=== PATIENT | female | born 1950 | race African-American/Black ===

== ENCOUNTER 2017-10-04 11:08 | Observation (INO) | payer OTHER ==
[2017-10-04] MEDS ORDERED: ONDANSETRON 4 MG/2 ML VIAL ONE (11:50)
[2017-10-04] MEDS ORDERED: FAMOTIDINE 20 MG/2 ML VIAL IV ONE (11:50)
[2017-10-04] MEDS ORDERED: NA CHLORIDE 0.9% 1,000 ML ONE (11:50)
[2017-10-04] MEDS ORDERED: ASPIRIN 81 MG CHEWABLE TABLET ONE (11:53)
[2017-10-04] MEDS ORDERED: NITROGLYCERIN 0.4 MG/TAB SL ONE (11:53)
[2017-10-04 11:56] LABS: Absolute Lymphocytes (CBC) 3.2 K/uL (0.7-4.9); Absolute Monocytes 0.7 K/uL (0.1-1.3); Absolute Neutrophil 5.7 K/uL (1.8-8.0); Basophils % 0.4 % (0-1.3); Eosinophils % 1.2 % (0-4.4); Hematocrit 42.4 % (36.0-45.0); Lymphocytes % 32.8 % (15.3-44.8); MCH 25.1 pg (27.0-35.0); MCV 81.4 fL (80-100); MPV 8.4 fL (7.6-11.3); Monocytes % 6.7 % (3.3-12.3); RBC Red Blood Cell Count 5.21 M/uL (3.86-4.86)
[2017-10-04 12:00] LABS: Protime INR 1.04
[2017-10-04 12:04] LABS: Bicarbonate 27 mEq/L (21-31); Glucose Level 237 mg/dL (65-120); Lipase 20 U/L (22-51); Potassium 3.6 mEq/L (3.6-5.0); Sodium Level 138 mEq/L (135-145)
--- NOTE | 2017-10-04 12:07 | RAD REPORT ---
EXAM DESCRIPTION: CT - Abdomen Pelvis Wo Contrast - 10/04/2017 11:53 am CLINICAL HISTORY: Abdominal pain. COMPARISON: 10/26/2011 TECHNIQUE: CT imaging of the abdomen and pelvis was performed without contrast. Solid organ, bowel a nd vascular assessment is limited due to lack of IV and oral contrast. All CT scans are performed using dose optimization technique as appropriate and may include automated exposure control or mA/KV adjustment according to patient size. FINDINGS: The lower lung perez are clear.Cholecystectomy clips. The liver, spleen, pancreas, adrenal glands and kidneys are within normal limits for a limited non-co ntrast examination. No bowel obstruction, free air, free fluid or abscess. Mild thickening of the colon is seen without p neumatosis coli, greatest in the transverse colon. The appendix is normal. Postsurgical changes are present at L4-5.Mild central canal narrowing seen at this level. IMPRESSION: Mild colitis is suspected, greatest in the transverse colon. No evidence of pneumatosis coli. A limited non-contrast examination was performed as detailed.
[2017-10-04 12:10] LABS: ALT/SGPT 13 IU/L (10-60); AST/SGOT 14 IU/L (10-42); Albumin 4.2 g/dL (3.2-5.5); Alkaline Phosphatase 72 IU/L (42-121); BUN Blood Urea Nitrogen 19 mg/dL (6-20); Bilirubin Direct < 0.1 mg/dL (0-0.2); Bilirubin Total 0.7 mg/dL (0.3-1.2); Magnesium 1.5 mg/dL (1.8-2.5); Protein, Total 8.1 g/dL (6.0-8.3)
--- NOTE | 2017-10-04 12:43 | RAD REPORT ---
EXAM DESCRIPTION: RAD - Chest Single View - 10/04/2017 12:03 pm CLINICAL HISTORY: Chest pain, hypertension. COMPARISON: 06/13/2017 FINDINGS: Portable technique limits examination quality. The lungs are grossly clear. The heart is upper limit of normal in size. No displaced fractures. IMPRESSION: No acute intrathoracic process suspected.
[2017-10-04 13:02] LABS: Urine Blood TRACE (NEG); Urine Glucose 2+ (NEG); Urine Protein TRACE (NEG); Urine pH 5.5 (5.0-7.0)
[2017-10-04 13:04] LABS: Urine Bacteria 20-50 /HPF (<20); Urine Culture Reflex Order REFLEXED; Urine RBC <5 /HPF (NONE SEEN)
[2017-10-04] MEDS ORDERED: Levofloxacin500mg IV 500 MG/100 ML BAG IV ONE (13:06)
[2017-10-04] MEDS ORDERED: METRONIDAZOLE 500mg IVPB 500 MG/100 ML BAG IV ONE (13:06)
--- NOTE | 2017-10-04 13:09 | EDPHYS ---
Physician Documentation [facility] Name: Soledad Watts Age: 67 yrs Sex: Female : 1950 Arrival Date: 10/04/2017 Time: 11:11 Bed 15 Private MD: Katherine Al F ED Physician Shun Millard HPI: 10/04 12:01 This 67 yrs old Black Female presents to ER via Ambulatory with complaints of Abdominal wa Pain, Diarrhea. 12:01 The patient presents to the emergency department with nausea, that is moderate, wa diarrhea, 7 times since the onset of symptoms, abdominal pain, of the left upper quadrant and left lower quadrant, described as achy, and does not radiate, c/o nausea. denies vomiting. denies fever. loose stools x 7 since onset yesterday. denies stool bloody. also states chest tightness, 6/10 with mild SOB began this AM. h/o diarrhea a yr ago. does not remember dx. Onset: The symptoms/episode began/occurred yesterday. Possible causes: unknown. The symptoms are aggravated by nothing. The symptoms are alleviated by nothing. Associated signs and symptoms: Pertinent positives: abdominal pain, diarrhea, nausea, Pertinent negatives: dysuria, fever, hematuria, vomiting. Severity of symptoms: At their worst the symptoms were moderate in the emergency department the symptoms are unchanged 6/10 chest pain. abd pain 2/10. The patient has experienced a previous episode. The patient has not recently seen a physician. Historical: - Allergies: 11:15 Codeine; la1 11:15 Talwin; la1 11:15 Toradol; la1 - Home Meds: 12:10 lisinopril 20 mg oral tab 1 tab once daily [Active]; amlodipine 5 mg oral tab 1 tab iw once daily [Active]; metoprolol tartrate 50 mg oral tab 1 tab once daily [Active]; Lyrica 150 mg Oral 1 cap 2 times per day [Active]; hydrocodone-acetaminophen 7.5-325 mg Oral tab 1 tab every 4 hours [Active]; meloxicam 15 mg oral tab 1 tab once daily [Active]; zolpidem 10 mg Oral tab 1 tab nightly [Active]; simvastatin 20 mg Oral tab 1 tab once daily [Active]; metformin 750 mg oral Tb24 once daily [Active]; - PMHx: 11:15 CHRONIC LOW BACK PAIN; Diabetes - NIDDM; Hypertension; la1 - PSHx: 12:10 Cholecystectomy; back surgery x2; Tubal ligation; cyst removed from irene. wrist; iw - Immunization history:: Adult Immunizations up to date. - Social history:: Smoking status: Patient/guardian denies using tobacco. - Family history:: not pertinent. - Hospitalizations: : No recent hospitalization is reported. ROS: 12:07 Constitutional: Negative for fever, chills, and weight loss, Eyes: Negative for injury, wa pain, redness, and discharge, ENT: Negative for injury, pain, and discharge, Neck: Negative for injury, pain, and swelling, Back: Negative for injury and pain, : Negative for injury, bleeding, discharge, and swelling, MS/Extremity: Negative for injury and deformity, Skin: Negative for injury, rash, and discoloration, Neuro: Negative for headache, weakness, numbness, tingling, and seizure, Psych: Negative for depression, anxiety, suicide ideation, homicidal ideation, and hallucinations. 12:07 Cardiovascular: Positive for chest pain. 12:07 Respiratory: Positive for shortness of breath. 12:07 Abdomen/GI: Positive for abdominal pain, nausea, diarrhea. Exam: 12:10 Constitutional: This is a well developed, well nourished patient who is awake, alert, wa and in no acute distress. Head/Face: Normocephalic, atraumatic. Eyes: Pupils equal round and reactive to light, extra-ocular motions intact. Lids and lashes normal. Conjunctiva and sclera are non-icteric and not injected. Cornea within normal limits. Periorbital areas with no swelling, redness, or edema. ENT: Nares patent. No nasal discharge, no septal abnormalities noted. Tympanic membranes are normal and external auditory canals are clear. Oropharynx with no redness, swelling, or masses, exudates, or evidence of obstruction, uvula midline. Mucous membranes moist. Neck: Trachea midline, no thyromegaly or masses palpated, and no cervical lymphadenopathy. Supple, full range of motion without nuchal rigidity, or vertebral point tenderness. No Meningismus. Chest/axilla: Normal chest wall appearance and motion. Nontender with no deformity. No lesions are appreciated. Back: No spinal tenderness. No costovertebral tenderness. Full range of motion. Skin: Warm, dry with normal turgor. Normal color with no rashes, no lesions, and no evidence of cellulitis. MS/ Extremity: Pulses equal, no cyanosis. Neurovascular intact. Full, normal range of motion. Neuro: Awake and alert, GCS 15, oriented to person, place, time, and situation. Cranial nerves II-XII grossly intact. Motor strength 5/5 in all extremities. Sensory grossly intact. Cerebellar exam normal. Normal gait. Psych: Awake, alert, with orientation to person, place and time. Behavior, mood, and affect are within normal limits. 12:10 Cardiovascular: Rate: normal, Rhythm: regular, Pulses: no pulse deficits are appreciated, Heart sounds: normal, Edema: is not appreciated, JVD: is not appreciated. 12:10 Respiratory: the patient does not display signs of respiratory distress, Respirations: normal, Breath sounds: are clear throughout, Respiratory rate: nml 12:10 Abdomen/GI: Inspection: abdomen appears normal, Bowel sounds: normal, Palpation: soft, mild abdominal tenderness, in the left upper quadrant and left lower quadrant. Vital Signs: 11:15 BP 167 / 89; Pulse 92; Resp 19; Temp 97.8; Pulse Ox 100% on R/A; Weight 68.04 kg; la1 Height 5 ft. 2 in. (157.48 cm); 12:23 BP 137 / 87; Pulse 82; Resp 16; Pulse Ox 98% on R/A; Pain 0/10; em 12:53 BP 134 / 74; Pulse 81; Resp 18; Pulse Ox 98% on R/A; em 14:01 BP 137 / 78; Pulse 71; Resp 16; Pulse Ox 99% on R/A; em 14:42 BP 181 / 71; Pulse 62; Resp 18; Temp 98.2(O); Pulse Ox 100% on R/A; Pain 6/10; iw 11:15 Body Mass Index 27.44 (68.04 kg, 157.48 cm) la1 MDM: 11:20 Patient medically screened. wa 12:12 Differential diagnosis: will r/o c-diff. r/o colitis. work up with labs and CT. fluids, wa meds, reassess. consider ACS in DM female with HTN w/ c/o chest pain. 13:01 Data reviewed: vital signs, nurses notes, lab test result(s), EKG, radiologic studies. md Test interpretation: by ED physician or midlevel provider: EKG: HR 85. non-specific ST-T changes. Labs noted for hyperglycemia. nml troponin. nml CXR. CT noted for colitis. more pronounced in the transverse colon. . Response to treatment: chest pain resolved with nitro. will admit for cardiology eval. also GI eval for colitis. abx IV given. Physician consultation: Katherine Al MD. 10/04 11:34 Order name: Basic Metabolic Panel; Complete Time: 12:54 md 10/04 11:34 Order name: CBC with Diff; Complete Time: 12:54 md 10/04 11:34 Order name: LFT's; Complete Time: 12:54 md 10/04 11:34 Order name: Magnesium; Complete Time: 12:54 md 10/04 11:34 Order name: PT-INR; Complete Time: 12:55 md 10/04 11:34 Order name: Troponin (emerg Dept Use Only); Complete Time: 12:55 md 10/04 11:36 Order name: Urine Microscopic Only md 10/04 11:38 Order name: Stool Culture md 10/04 11:38 Order name: Fecal Leukocyte Stain md 10/04 11:38 Order name: CDIFF md 10/04 11:44 Order name: Lipase; Complete Time: 12:54 [facility] 10/04 11:34 Order name: XRAY Chest (1 view); Complete Time: 12:55 md 10/04 11:38 Order name: CT Abd/Pelvis - Without Cont; Complete Time: 12:55 md 10/04 12:29 Order name: Urine Dipstick--Ancillary (enter results) 10/04 13:05 Order name: Urine Culture [facility] 10/04 13:50 Order name: Basic Metabolic Panel [facility] 10/04 13:50 Order name: Basic Metabolic Panel [facility] 10/04 13:50 Order name: CBC with Automated Diff [facility] 10/04 13:50 Order name: CBC with Automated Diff [facility] 10/04 13:50 Order name: Troponin I [facility] 10/04 13:50 Order name: Troponin I [facility] 10/04 13:50 Order name: Troponin I [facility] 10/04 11:34 Order name: EKG; Complete Time: 11:34 10/04 11:34 Order name: Cardiac monitoring; Complete Time: 11:54 10/04 11:34 Order name: EKG - Nurse/Tech; Complete Time: 14:10/04 11:34 Order name: IV Saline Lock; Complete Time: 14:10/04 11:34 Order name: Labs collected and sent; Complete Time: 14:10/04 11:34 Order name: O2 Sat Monitoring; Complete Time: 11:54 10/04 11:34 Order name: Urine Dipstick-Ancillary (obtain specimen); Complete Time: 14:10/04 11:36 Order name: IV Saline Lock; Complete Time: 14:16 10/04 11:36 Order name: Labs collected and sent; Complete Time: 14:10/04 11:36 Order name: Urine Dipstick-Ancillary (obtain specimen); Complete Time: 14:16 10/04 13:50 Order name: CONS Physician Consult EDMS 10/04 13:50 Order name: Consistent Carb (ADA) [address] EDMS 10/04 13:50 Order name: EKG Electrocardiogram EDMS 10/04 13:50 Order name: EKG Electrocardiogram EDMS 10/04 13:50 Order name: EKG Electrocardiogram EDMS 10/04 13:50 Order name: EKG Electrocardiogram EDMS Administered Medications: 12:34 Drug: Zofran 4 mg Route: IVP; Site: left antecubital; la1 13:01 Follow up: Response: No adverse reaction em 12:34 Drug: Pepcid 20 mg Route: IVP; Site: left antecubital; la1 13:01 Follow up: Response: No adverse reaction em 12:34 Drug: NS 0.9% 1000 ml Route: IV; Rate: 1 bolus; Site: left antecubital; la1 14:15 Follow up: IV Status: Completed infusion; IV Intake: 1000ml em 12:35 Drug: Aspirin Chewable Tablet 324 mg Route: PO; la1 13:03 Follow up: Response: No adverse reaction em 12:35 Drug: Nitroglycerin 0.4 mg Route: Sublingual; la1 13:02 Follow up: Response: No adverse reaction em 13:18 Drug: Flagyl 500 mg Volume: 100 ml; Route: IVPB; Rate: 200 ml/hr; Infused Over: 30 iw mins; Site: left antecubital; 14:15 Follow up: IV Status: Completed infusion; IV Intake: 100ml em 13:18 Drug: LevaQUIN 500 mg Volume: 100 ml; Route: IVPB; Infused Over: 60 mins; Site: left iw antecubital; 14:14 Follow up: IV Status: Completed infusion; IV Intake: 100ml em Disposition: 10/04/17 13:08 Hospitalization ordered by Katherine Al for Inpatient Admission. Preliminary diagnosis are Acute Diarrhea, Acute Colitis, Acute Chest Pain. - Bed requested for Telemetry/MedSurg (Inpatient). - Status is Inpatient Admission. iw - Condition is Stable. - Problem is new. - Symptoms have improved. UTI on Admission? No Signatures: Dispatcher [employer] EDFL Tabatha Gee RN RN Kristyn King RN RN Sanjiv Dinero RN RN la1 Shun Millard MD MD wa Munoz, Edgar HEATER OPERATOR HELPER em Corrections: (The following items were deleted from the chart) 11:44 11:36 LIPASE+C.LAB.BRZ ordered. [facility] EDFL 11:55 11:38 Stool Culture+BA.LAB.BRZ ordered. [facility] 11:55 11:38 Occult Blood+PA.LAB.BRZ ordered. [facility] 14:16 13:08 Hospitalization Ordered by Katherine Al MD for Inpatient Admission. Preliminary diagnosis is Acute Diarrhea; Acute Colitis; Acute Chest Pain. Bed requested for Telemetry/MedSurg (Inpatient). Status is Inpatient Admission. Condition is Stable. Problem is new. Symptoms have improved. UTI on Admission? No. wa 15:11 14:16 10/04/2017 13:08 Hospitalization Ordered by Katherine Al MD for Inpatient iw Admission. Preliminary diagnosis is Acute Diarrhea; Acute Colitis; Acute Chest Pain. Bed requested for Telemetry/MedSurg (Inpatient). Status is Inpatient Admission. Condition is Stable. Problem is new. Symptoms have improved. UTI on Admission? No. dw
--- NOTE | 2017-10-04 13:09 | ER ---
Nurse's Notes [facility] Name: Soledad Watts Age: 67 yrs Sex: Female : 1950 Arrival Date: 10/04/2017 Time: 11:11 Bed 15 Private MD: Katherine Al F Diagnosis: Acute Diarrhea;Acute Colitis;Acute Chest Pain Presentation: 10/04 11:14 Presenting complaint: Patient states: I have had diarrhea for 2 days and I had some la1 chest tightness this morning. Transition of care: patient was not received from another setting of care. Onset of symptoms was October 04, 2017. Initial Sepsis Screen: Does the patient meet any 2 criteria? No. Patient's initial sepsis screen is negative. Does the patient have a suspected source of infection? No. Patient's initial sepsis screen is negative. Care prior to arrival: None. 11:14 Method Of Arrival: Ambulatory la1 11:14 Acuity: JOHN 3 la1 Historical: - Allergies: 11:15 Codeine; la1 11:15 Talwin; la1 11:15 Toradol; la1 - Home Meds: 12:10 lisinopril 20 mg oral tab 1 tab once daily [Active]; amlodipine 5 mg oral tab 1 tab iw once daily [Active]; metoprolol tartrate 50 mg oral tab 1 tab once daily [Active]; Lyrica 150 mg Oral 1 cap 2 times per day [Active]; hydrocodone-acetaminophen 7.5-325 mg Oral tab 1 tab every 4 hours [Active]; meloxicam 15 mg oral tab 1 tab once daily [Active]; zolpidem 10 mg Oral tab 1 tab nightly [Active]; simvastatin 20 mg Oral tab 1 tab once daily [Active]; metformin 750 mg oral Tb24 once daily [Active]; - PMHx: 11:15 CHRONIC LOW BACK PAIN; Diabetes - NIDDM; Hypertension; la1 - PSHx: 12:10 Cholecystectomy; back surgery x2; Tubal ligation; cyst removed from irene. wrist; iw - Immunization history:: Adult Immunizations up to date. - Social history:: Smoking status: Patient/guardian denies using tobacco. - Family history:: not pertinent. - Hospitalizations: : No recent hospitalization is reported. Screenin:58 Abuse screen: Denies threats or abuse. Nutritional screening: No deficits noted. em Tuberculosis screening: No symptoms or risk factors identified. Fall Risk None identified. Assessment: 11:30 General: Appears in no apparent distress. comfortable, Behavior is calm, cooperative. em Pain: Denies pain. Neuro: Level of Consciousness is awake, alert, Oriented to person, place, time, situation. Cardiovascular: Reports nausea, shortness of breath, "chest pressure" Denies diaphoresis, Heart tones S1 S2 present Capillary refill < 3 seconds. Respiratory: Airway is patent Respiratory effort is even, unlabored, Respiratory pattern is regular, symmetrical. GI: Abdomen is round non-distended, Bowel sounds present X 4 quads. Abd is soft and non tender X 4 quads. Reports nausea. : No signs and/or symptoms were reported regarding the genitourinary system. EENT: No signs and/or symptoms were reported regarding the EENT system. Derm: Skin is intact, Skin is pink, warm \\T\\ dry. Musculoskeletal: Range of motion: intact in all extremities. 11:45 Reassessment: Patient appears in no apparent distress at this time. I agree with the iw above assessment by Boaz Jasso LVN. 12:38 Reassessment: Patient appears in no apparent distress at this time. Patient and/or em family updated on plan of care and expected duration. Pain level reassessed. Patient is alert, oriented x 3, equal unlabored respirations, skin warm/dry/pink. Patient denies pain at this time. Patient states feeling better. Patient states symptoms have improved. 13:30 Reassessment: Patient appears in no apparent distress at this time. Patient and/or em family updated on plan of care and expected duration. Pain level reassessed. Patient is alert, oriented x 3, equal unlabored respirations, skin warm/dry/pink. family at bedside Patient denies pain at this time. Patient states feeling better. 14:44 Reassessment: Patient appears in no apparent distress at this time. Patient and/or iw family updated on plan of care and expected duration. Pain level reassessed. Patient is alert, oriented x 3, equal unlabored respirations, skin warm/dry/pink. pt request medication for BP, Dr. Millard notified, pt will take home meds. Vital Signs: 11:15 BP 167 / 89; Pulse 92; Resp 19; Temp 97.8; Pulse Ox 100% on R/A; Weight 68.04 kg; la1 Height 5 ft. 2 in. (157.48 cm); 12:23 BP 137 / 87; Pulse 82; Resp 16; Pulse Ox 98% on R/A; Pain 0/10; em 12:53 BP 134 / 74; Pulse 81; Resp 18; Pulse Ox 98% on R/A; em 14:01 BP 137 / 78; Pulse 71; Resp 16; Pulse Ox 99% on R/A; em 14:42 BP 181 / 71; Pulse 62; Resp 18; Temp 98.2(O); Pulse Ox 100% on R/A; Pain 6/10; iw 11:15 Body Mass Index 27.44 (68.04 kg, 157.48 cm) la1 ED Course: 11:11 Patient arrived in ED. mr 11:12 Katherine Al MD is Private Physician. mr 11:15 Triage completed. la1 11:15 Arm band placed on left wrist. la1 11:20 Shun Millard MD is Attending Physician. wa 11:29 Boaz Jasso LVN is Primary Nurse. em 11:52 CT completed. Patient moved to CT via wheelchair. Patient moved back from CT. cw1 11:53 CT Abd/Pelvis - Without Cont In Process Unspecified. EDMS 11:55 No provider procedures requiring assistance completed. Initial lab(s) drawn, by me, em sent to lab. Inserted saline lock: 22 gauge in left antecubital area, using aseptic technique. Blood collected. 11:58 Patient has correct armband on for positive identification. Placed in gown. Bed in low em position. Call light in reach. Adult w/ patient. 12:03 XRAY Chest (1 view) In Process Unspecified. EDMS 12:34 Urine collected: clean catch specimen, clear, EKG done, by ED staff, reviewed by em Shun Millard MD. 13:07 Katherine Al MD is Hospitalizing Provider. wa 14:50 Patient admitted, IV remains in place. iw Administered Medications: 12:34 Drug: Zofran 4 mg Route: IVP; Site: left antecubital; la1 13:01 Follow up: Response: No adverse reaction em 12:34 Drug: Pepcid 20 mg Route: IVP; Site: left antecubital; la1 13:01 Follow up: Response: No adverse reaction em 12:34 Drug: NS 0.9% 1000 ml Route: IV; Rate: 1 bolus; Site: left antecubital; la1 14:15 Follow up: IV Status: Completed infusion; IV Intake: 1000ml em 12:35 Drug: Aspirin Chewable Tablet 324 mg Route: PO; la1 13:03 Follow up: Response: No adverse reaction em 12:35 Drug: Nitroglycerin 0.4 mg Route: Sublingual; la1 13:02 Follow up: Response: No adverse reaction em 13:18 Drug: Flagyl 500 mg Volume: 100 ml; Route: IVPB; Rate: 200 ml/hr; Infused Over: 30 iw mins; Site: left antecubital; 14:15 Follow up: IV Status: Completed infusion; IV Intake: 100ml em 13:18 Drug: LevaQUIN 500 mg Volume: 100 ml; Route: IVPB; Infused Over: 60 mins; Site: left iw antecubital; 14:14 Follow up: IV Status: Completed infusion; IV Intake: 100ml em Intake: 14:14 IV: 100ml; Total: 100ml. em 14:15 IV: 100ml; Total: 200ml. em 14:15 IV: 1000ml; Total: 1200ml. em Outcome: 13:08 Decision to Hospitalize by Provider. wa 14:49 Admitted to Med/surg accompanied by nurse, via wheelchair, room 420, with chart, Report iw called to PRABHU Martinez 14:49 Condition: good 14:49 Instructed on the need for admit, Demonstrated understanding of instructions. 15:11 Patient left the ED. iw Signatures: Dispatcher [employer] Heidi Norris Romero, Boaz, CORN GROWER CORN GROWER em Kristyn King, RN RN Sarah Beth Viera cw1 Sanjiv Dinero RN RN la1 Shun Millard MD MD mt
--- NOTE | 2017-10-04 15:23 | EKG ---
Test Date: 2017-10-04 Test Time: 12:27:41 Seat Pack Inspector: QUANG MEASUREMENT RESULTS: Intervals: Rate: 85 MD: 190 QRSD: 84 QT: 378 QTc: 449 [place]: P: 78 MD: 190 QRS: 36 T: 74 INTERPRETIVE STATEMENTS: Normal sinus rhythm Nonspecific T wave abnormality Abnormal ECG Compared to ECG 07/06/2014 19:07:33 T-wave abnormality now present Left ventricular hypertrophy no longer present Electronically Signed On 10-04-17 15:23:17 CDT by Modesto Vela
[2017-10-04 17:04] VITALS: BMI 27.4
[2017-10-04] MEDS: ONDANSETRON 4 MG/2 ML VIAL IV PRN (18:10)
[2017-10-04] MEDS: METOPROLOL TAR 50 MG TAB PO SCH (21:14)
[2017-10-04] MEDS: ACETAMINOPHEN 500 MG TAB PO PRN (21:14)
[2017-10-04] MEDS: ZOLPIDEM TARTRATE 10 MG TABLET PO PRN (21:15)
[2017-10-05] MEDS: METRONIDAZOLE 500mg IVPB 500 MG/100 ML BAG IV SCH ×3 (01:01→16:29)
[2017-10-05] MEDS: ACETAMINOPHEN 500 MG TAB PO PRN ×2 (04:51→17:54)
[2017-10-05 05:36] LABS: Absolute Lymphocytes (CBC) 3.6 K/uL (0.7-4.9); Absolute Monocytes 0.8 K/uL (0.1-1.3); Absolute Neutrophil 4.9 K/uL (1.8-8.0); Basophils % 0.4 % (0-1.3); Eosinophils % 1.5 % (0-4.4); Hematocrit 39.1 % (36.0-45.0); Lymphocytes % 37.7 % (15.3-44.8); MCH 25.4 pg (27.0-35.0); MPV 8.5 fL (7.6-11.3); RBC Red Blood Cell Count 4.88 M/uL (3.86-4.86)
[2017-10-05 05:44] LABS: BUN Blood Urea Nitrogen 11 mg/dL (6-20); Bicarbonate 25 mEq/L (21-31); Glucose Level 158 mg/dL (65-120); Potassium 3.5 mEq/L (3.6-5.0); Sodium Level 137 mEq/L (135-145)
[2017-10-05] MEDS: ONDANSETRON 4 MG/2 ML VIAL IV PRN ×2 (08:03→16:29)
[2017-10-05] MEDS: LISINOPRIL 20 MG TAB PO SCH (08:16)
[2017-10-05] MEDS: METOPROLOL TAR 50 MG TAB PO SCH ×2 (08:16→21:00)
[2017-10-05] MEDS: ASPIRIN EC 81 MG TAB PO SCH (08:16)
[2017-10-05] MEDS: Levofloxacin500mg IV 500 MG/100 ML BAG IV SCH (08:17)
[2017-10-05] MEDS ORDERED: AMLODIPINE 5 MG TAB PO SCH (09:00)
[2017-10-05] MEDS: PREGABALIN 150 MG CAP PO SCH ×2 (13:48→21:00)
--- NOTE | 2017-10-05 14:39 | EKG ---
Test Date: 2017-10-05 Test Time: 12:09:28 Event Decorator: CHARLA MEASUREMENT RESULTS: Intervals: Rate: 71 NM: 214 QRSD: 88 QT: 404 QTc: 439 [place]: P: 46 NM: 214 QRS: 14 T: 59 INTERPRETIVE STATEMENTS: Sinus rhythm with 1st degree AV block Otherwise normal ECG Compared to ECG 10/04/2017 12:27:41 First degree AV block now present T-wave abnormality no longer present Electronically Signed On 10-05-17 14:39:04 CDT by Jose Stark
--- NOTE | 2017-10-05 16:50 | CON ---
Identification: A 67-year-old woman. Chief Complaint: Abdominal pain and diarrhea. Reason For Consult: Chest pain. History Of Present Illness: Ms. Watts did not have chest pain until she got to the ER and her ches t felt heavy for an hour or so since then. TX was ruled out. She has symptoms consistent with diver ticulitis with abdominal pain, diarrhea. She seems to be doing better. She is not anorexic, not thr owing up. Does not have any signs of septicemia. Allergies: SHE IS ALLERGIC TO PENTAZOCINE, CODEINE, AND KETORALAC. Social History: She does not use tobacco. Past Medical History: She has underlying diabetes, hypertension. Medications: She takes metoprolol, Lyrica, simvastatin, zolpidem, meloxicam, metformin, hydrocodone, cyclobenzaprine, amlodipine, and lisinopril. Physical Examination: Vital Signs: 5 feet 2 inches, 150 pounds. HEENT: Normal. Lungs: Clear. Neck: Carotids, no bruit. Heart: Within normal limits. Abdomen: Soft. Extremities: Normal. Impression: The patient does not have an unstable coronary syndrome. She could have angina that onl y becomes apparent when she is under a lot of distress from illnesses such as diarrhea, so I will ask her to do a pharmacologic nuclear stre ss test. LANA/STEPHEN Voice ID: [id number] Report ID: [id number]
[2017-10-05] MEDS ORDERED: MAGNESIUM SULFATE 1 gm IVPB 1 GM/100 ML BAG IV ONE (18:00)
[2017-10-05] MEDS ORDERED: POTASSIUM CL SA 10 MEQ TAB PO ONE (18:00)
[2017-10-05] MEDS ORDERED: AMLODIPINE 5 MG TAB PO ONE (18:10)
[2017-10-05] MEDS ORDERED: ATORVASTATIN 10 MG TAB PO SCH (21:00)
[2017-10-05] MEDS ORDERED: ZOLPIDEM TARTRATE 10 MG TABLET PO SCH (21:00)
[2017-10-05] MEDS: ZOLPIDEM TARTRATE 10 MG TABLET PO PRN (21:13)
[2017-10-06] MEDS: METRONIDAZOLE 500mg IVPB 500 MG/100 ML BAG IV SCH ×2 (00:17→09:04)
--- NOTE | 2017-10-06 00:33 | HP ---
Date of Admission: 10/04/2017 History Of Present Illness: The patient is a 67-year-old female, who 2 days before presenting to the emergency room started having mild nausea, but no vomiting. She also had what she describes as diar juana, which is basically soft stools, but not watery, about 5 times a day along with mild all over cr ampy abdominal pain. Also on the day of her presentation, she felt also some chest pain in the subst ernal area and described as discomfort, that has resolved by the time she came to emergency room. Th e patient had mild nausea as mentioned, no vomiting, no fever, no chills, and voiced no other complai nts. Review of Systems: Gastrointestinal: As above. Cardiovascular: No complaints. No palpitation. No dizziness. Pulmonary: No complaint. Genitourinary: No complaint. Neurological: No complaint. Respiratory: No complaint. Past Medical History: Includes; 1.Hypertension. 2.Type 2 diabetes mellitus. 3.Peripheral neuropathy from diabetes. 4.Hyperlipidemia. 5.Primary insomnia. Social History: Denies smoking, alcohol, or IV drug abuse history. Family History: Noncontributory. Medications: Include amlodipine 5 mg p.o. daily, Flexeril 10 mg p.o. b.i.d., Lortab 7.5 one p.o. q.i .d. p.r.n., Prinivil 20 mg p.o. daily, Mobic 50 mg p.o. daily, metformin 5 mg p.o. b.i.d., Lopressor 50 mg p.o. daily, Lyrica 150 mg p.o. t.i.d., simvastatin 20 mg p.o. daily, and Ambien 10 mg p.o. q.h. s. Allergies: PENTAZOCINE, LACTATE, CODEINE, AND KETORALAC TROMETHAMINE. Physical Examination: Vital Signs: Blood pressure 180/87, pulse 87, and temperature 98.2. Heart: Regular rate and rhythm. Chest: Clear to auscultation. Abdomen: Soft, nontender. No rigidity. No rebound. Bowel sounds are active. Extremities: No edema. No cyanosis. Peripheral pulses are felt. Neurological: Alert, oriented, and nonfocal. Grossly intact. Imaging: Chest x-ray, no acute pathology. EKG, normal sinus rhythm, nonspecific T-wave abnormality. Abdominal and pelvic CT showed mild colitis suspected in the transverse colon. No evidence of pneu matosis. Laboratory Data: White cell count 9.4, hemoglobin 12.4, hematocrit 39.1, and platelets 306. Bacteriologist Food ry: Potassium 3.5, BUN 11, and creatinine 0.66. She had cardiac enzymes x3. Troponin less than 0.0 3. Blood sugar fingersticks noted. Urinalysis, 2+ glucose, trace blood. Assessment And Plan: 1.Colitis. The patient has been put on Levaquin and metronidazole IV. Stools have been sent for C. difficile, white BC count, and cultures. 2.Chest pain complaints. Cardiac enzymes negative. EKG, unrevealing. Cardiology was consulted, Dr German Vela, pending his opinion. Meanwhile, the patient is stable. 3.Type 2 diabetes. We will put the patient on sliding scale. 4.Chronic medical illnesses. We will continue her home medications. We will monitor the patient. RADHA/MODL Voice ID: [id number]
[2017-10-06] MEDS: ACETAMINOPHEN 500 MG TAB PO PRN (05:44)
[2017-10-06 06:06] LABS: Absolute Lymphocytes (CBC) 3.1 K/uL (0.7-4.9); Absolute Monocytes 0.8 K/uL (0.1-1.3); Absolute Neutrophil 4.8 K/uL (1.8-8.0); Basophils % 0.5 % (0-1.3); Eosinophils % 2.8 % (0-4.4); Hematocrit 41.6 % (36.0-45.0); Lymphocytes % 34.1 % (15.3-44.8); MCH 25.6 pg (27.0-35.0); MCV 80.6 fL (80-100); MPV 8.3 fL (7.6-11.3); Monocytes % 8.7 % (3.3-12.3); RBC Red Blood Cell Count 5.15 M/uL (3.86-4.86)
[2017-10-06 06:21] LABS: Magnesium 1.7 mg/dL (1.8-2.5); Phosphorus 4.5 mg/dL (2.5-4.3); Potassium 3.9 mEq/L (3.6-5.0)
[2017-10-06] MEDS: ONDANSETRON 4 MG/2 ML VIAL IV PRN (06:52)
[2017-10-06] MEDS ORDERED: MAGNESIUM SULFATE 1 gm IVPB 1 GM/100 ML BAG IV ONE (07:00)
[2017-10-06] MEDS ORDERED: REGADENOSON 0.4 MG/5 ML SYR IV ONE (07:33)
[2017-10-06 08:00] VITALS: TEMP 97.7
[2017-10-06] MEDS ORDERED: AMLODIPINE 5 MG TAB PO SCH (09:00)
[2017-10-06] MEDS ORDERED: LISINOPRIL 20 MG TAB PO SCH (09:00)
[2017-10-06] MEDS ORDERED: AMLODIPINE 10 MG TAB PO SCH (09:00)
[2017-10-06] MEDS ORDERED: METOPROLOL TAR 50 MG TAB PO SCH (09:00)
[2017-10-06] MEDS ORDERED: POTASSIUM 25 MEQ EFFERV TAB PO ONE (09:00)
[2017-10-06] MEDS ORDERED: MELOXICAM 7.5 MG TAB PO SCH (09:00)
[2017-10-06] MEDS: Levofloxacin500mg IV 500 MG/100 ML BAG IV SCH (09:04)
[2017-10-06] MEDS: PREGABALIN 150 MG CAP PO SCH (11:22)
[2017-10-06] MEDS: LISINOPRIL 20 MG TAB PO SCH (11:23)
[2017-10-06] MEDS: METOPROLOL TAR 50 MG TAB PO SCH (11:23)
[2017-10-06] MEDS: ASPIRIN EC 81 MG TAB PO SCH (11:24)
[2017-10-06 11:25] VITALS: BP 157/78
[2017-10-06] MEDS ORDERED: HYDROCODONE/APAP 7.5/325 MG TAB PO PRN (11:41)
--- NOTE | 2017-10-06 11:41 | RAD REPORT ---
EXAM DESCRIPTION: NM - Rest Stress Cardiac Imaging - 10/06/2017 11:27 am CLINICAL HISTORY: Chest pain COMPARISON: July 2010 TECHNIQUE: The patient was administered 10.5 mCi of Tc 99m Sestamibi prior to resting SPECT imaging of the heart. The patient was then administered 32.1 mCi of Tc 99m Sestamibi following exercise or ph armacologic stress. Multiplanar SPECT images were reviewed. FINDINGS: The end diastolic volume is 68 ml, the end systolic volume is 28 ml, and the ejection frac tion is 59 %. No diminished activity seen on the stress sequencing. Minimal decreased activity along the inferior w all on rest imaging noted. This diminished activity may represent diaphragmatic attenuation artifact . IMPRESSION: No stress-induced ischemic changes identifiable. No significant area of scarring seen. Ventricular volumes and ejection fraction are normal range.
[2017-10-06 13:04] VITALS: O2SAT 100
--- NOTE | 2017-10-06 13:04 | TREADPHA ---
DX: CHEST PAIN Date of Study: 10/06/17 Ht: 5 2 Wt: 150 lb 0 oz Consulting Physician: ALENA MEDICATIONS: TYLENOL, NORVASC, ASPIRIN, LIPITOR, LEVAQUIN, PRINIVIL, MOBIC, LOPRSSOR, ZOFRAN HISTORY: 67 YEAR OLD WOMAN WITH CHEST PAIN. MYOCARDIAL INFARCTION WAS RULED OUT. PHYSICIAL EXAMINATION: RESTING B.P.: 181/95 RESTING H.R.: 83 RESTING EKG: NORMAL SINU RHYTHM, FIRST DEGREE AV BLOCK OTHERWISE NORMAL. PROTOCOL: LEXISCAN EXERCISE TIME: 3:30 B.P. AT PEAK STRESS: 171/83 IMPRESSION: LEXISCAN STRESS TEST PERFORMED. CARDIOLITE INJECTED PER PROTOCOL. NO SUPRA VENTRICULAR TACHYCARDIA OR VENTRICULAR TACHYCARDIA NOTED. SEE NUCLEAR MEDICINE REPORT. NON DIAGNOSTIC EKG WITH LEXISCAN STRESS.
--- NOTE | 2017-10-06 17:04 | PN ---
Subjective: The patient is doing much better today. She has no chest pain and also her diarrhea has stopped. Objective: Vital Signs: blood pressure 155/75, pulse 90, and temperature 97.7. Heart: Regular rate and rhythm. Chest: Clear to auscultation. Abdomen: Soft, benign. Neurologic: Alert, oriented. Grossly intact. Microbiology: C difficile toxin negative. Stools, white BC negative. Laboratory Data: CBC noted and Chem-7 noted. Assessment And Plan: 1.Colitis, diarrhea controlled on current antibiotic. 2.Cardiology has seen the patient, recommended a nuclear stress test for her complaint of chest pain on admission. We will go ahead and follow up on that result. If that is negative, we will go ahead and discharge the patient. Otherwise, we will follow Cardiology recommendation from that standpoint . RADHA/STEPHEN Voice ID: [id number] Report ID: [id number]
--- NOTE | 2017-10-07 00:08 | PN ---
History: Ms. Watts was admitted on 10/04/[address] Al for abdominal pain, atypical chest pa in. She was seen by Dr. Stark yesterday. He ordered a Cardiolite Lexiscan for today. The Lexiscan was normal without any evidence of ischemia, normal ejection fraction, no blood pressure issue, and no arrhythmia. We will sign off her case. She can go home whenever it is okay with Dr. Al. GEORGE/STEPHEN Voice ID: [id number] Report ID: [id number]
== END 2017-10-06 13:55 | disposition home or self-care (01) ==
LOC: ER 11:08 → INTOOBSV 13:38 → ERHOLD 13:38 → 4TH 14:51
PROVIDERS: ADMIT Internal Medicine; ATTEND Internal Medicine
DX: K52.9 Noninfective gastroenteritis and colitis, unspecified (principal); R07.9 Chest pain, unspecified; E11.9 Type 2 diabetes mellitus without complications; I10 Essential (primary) hypertension; E78.5 Hyperlipidemia, unspecified
CPT/HCPCS: 36415 ×2; 71045; 74176; 78452; 80048 ×3; 80076; 82962 ×8; 83690; 83735 ×2; 84100; 84484 ×3; 85025 ×3; 85610; 87045; 87046; 87086; 87088; 87493; 89055; 93005 ×2; 93017; 96361; 96365; 96368; 96375; 99285; A9500; G0378 ×2; J2405 ×5; J2785; J3475 ×2; J7030; 81003; 81015

== ENCOUNTER 2017-11-17 10:26 | Emergency (ER) | payer OTHER ==
--- NOTE | 2017-11-17 11:06 | EDPHYS ---
Physician Documentation [facility] Name: Soledad Watts Age: 67 yrs Sex: Female : 1950 Arrival Date: 11/17/2017 Time: 10:27 Bed 12 Private MD: Katherine Al F ED Physician Duncan Jaeger HPI: 11/17 11:00 This 67 yrs old Black Female presents to ER via Ambulatory with complaints of Eye gs Swelling, Itching. 11:00 The patient is experiencing swelling. Onset: The symptoms/episode began/occurred 2 gs day(s) ago. Duration: the symptoms are continuous. Aggravated by nothing. Alleviated by nothing. Associated signs and symptoms: Pertinent positives: itching. Severity of symptoms: At their worst the symptoms were moderate in the emergency department the symptoms are unchanged. The patient has not experienced similar symptoms in the past. denies cosmetic or chemical exposure. Historical: - Allergies: 10:40 Codeine; sv 10:40 Talwin; sv 10:40 Toradol; sv - PMHx: 10:40 CHRONIC LOW BACK PAIN; Diabetes - NIDDM; Hypertension; sv - PSHx: 10:40 Cholecystectomy; back surgery x2; cyst removed from irene. wrist; Tubal ligation; sv - Immunization history:: Adult Immunizations up to date. - Social history:: Smoking status: Patient/guardian denies using tobacco. - Ebola Screening: : Patient denies exposure to infectious person Patient denies travel to an Ebola-affected area in the 21 days before illness onset. ROS: 11:00 All other systems are negative. gs Exam: 11:00 Head/Face: Normocephalic, atraumatic. ENT: Nares patent. No nasal discharge, no gs septal abnormalities noted. Tympanic membranes are normal and external auditory canals are clear. Oropharynx with no redness, swelling, or masses, exudates, or evidence of obstruction, uvula midline. Mucous membranes moist. Neck: Trachea midline, no thyromegaly or masses palpated, and no cervical lymphadenopathy. Supple, full range of motion without nuchal rigidity, or vertebral point tenderness. No Meningismus. Cardiovascular: Regular rate and rhythm with a normal S1 and S2. No gallops, murmurs, or rubs. Normal PMI, no JVD. No pulse deficits. Respiratory: Lungs have equal breath sounds bilaterally, clear to auscultation and percussion. No rales, rhonchi or wheezes noted. No increased work of breathing, no retractions or nasal flaring. Skin: Warm, dry with normal turgor. Normal color with no rashes, no lesions, and no evidence of cellulitis. 11:00 Constitutional: The patient appears alert, awake. 11:00 Eyes: Periorbital structures: erythema, swelling, that is mild, on the right supraorbital ridge, medial canthus of right eye, lateral canthus of right eye and right lower eyelid, Extraocular movements: no pain with eom, Conjunctiva: normal, Corneas: are normal. Vital Signs: 10:40 BP 150 / 87; Pulse 98; Resp 16; Temp 98.1(O); Pulse Ox 97% on R/A; Weight 68.04 kg; sv Pain 10/10; MDM: 10:59 Patient medically screened. gs 11:00 Differential diagnosis: contact dermatitis, allergy, preseptal cellulitis. Data gs reviewed: vital signs, nurses notes. Administered Medications: No medications were administered Disposition: 11/17/17 11:06 Discharged to Home. Impression: Allergic contact dermatitis. - Condition is Stable. - Discharge Instructions: Contact Dermatitis, [id number]. - Prescriptions for Keflex 500 mg Oral Capsule - take 1 capsule by ORAL route every 12 hours for 5 days; 10 capsule. Prednisone 20 mg Oral Tablet - take 1 tablet by ORAL route once daily for 5 days; 5 tablet. - Medication Reconciliation Form, Thank You Letter, Antibiotic Education, Prescription Opioid Use form. - Follow up: Private Physician; When: 2 - 3 days; Reason: Re-evaluation by your physician. Signatures: Roxie Kirkland RN Melinda Funk RN RN aj Starr, Gregory, MD MD gs Corrections: (The following items were deleted from the chart) 11:17 11:06 11/17/2017 11:06 Discharged to Home. Impression: Allergic contact dermatitis. aj Condition is Stable. Forms are Medication Reconciliation Form, Thank You Letter, Antibiotic Education, Prescription Opioid Use. Follow up: Private Physician; When: 2 - 3 days; Reason: Re-evaluation by your physician. gs
--- NOTE | 2017-11-17 11:06 | ER ---
Nurse's Notes [facility] Name: Soledad Watts Age: 67 yrs Sex: Female : 1950 Arrival Date: 11/17/2017 Time: 10:27 Bed 12 Private MD: Katherine Al F Diagnosis: Allergic contact dermatitis Presentation: 11/17 10:38 Presenting complaint: Patient states: red, itching and swelling to R eye that began two sv days ago. Pt denies visual changes or injury. Transition of care: patient was not received from another setting of care. Onset: The symptoms/episode began/occurred 2 day(s) ago. Anaphylaxis evaluation, no signs or symptoms of anaphylaxis were noted. Onset of symptoms was November 15, 2017. Risk Assessment: Do you want to hurt yourself or someone else? Patient reports no desire to harm self or others. Initial Sepsis Screen: Does the patient meet any 2 criteria? No. Patient's initial sepsis screen is negative. Does the patient have a suspected source of infection? No. Patient's initial sepsis screen is negative. Care prior to arrival: None. 10:38 Method Of Arrival: Ambulatory sv 10:38 Acuity: JOHN 4 sv Historical: - Allergies: 10:40 Codeine; sv 10:40 Talwin; sv 10:40 Toradol; sv - PMHx: 10:40 CHRONIC LOW BACK PAIN; Diabetes - NIDDM; Hypertension; sv - PSHx: 10:40 Cholecystectomy; back surgery x2; cyst removed from irene. wrist; Tubal ligation; sv - Immunization history:: Adult Immunizations up to date. - Social history:: Smoking status: Patient/guardian denies using tobacco. - Ebola Screening: : Patient denies exposure to infectious person Patient denies travel to an Ebola-affected area in the 21 days before illness onset. Screenin:45 Abuse screen: Denies threats or abuse. Denies injuries from another. Nutritional aj screening: No deficits noted. Tuberculosis screening: No symptoms or risk factors identified. Fall Risk None identified. Assessment: 10:45 General: Appears in no apparent distress. comfortable, Behavior is calm, cooperative, aj appropriate for age. Pain: Denies pain. Neuro: Level of Consciousness is awake, alert, obeys commands, Oriented to person, place, time, situation, Appropriate for age. Respiratory: Airway is patent Respiratory effort is even, unlabored, Respiratory pattern is regular, symmetrical, Breath sounds are clear bilaterally. EENT: Sclera/Cornea are reddened in outer aspect of conjuctiva of right eye, iris of right eye and inner aspect of conjuctiva of right eye Lid(s) swelling to upper and lower right eyelid. Reports Itching to right eye. Derm: Skin is intact, is healthy with good turgor, Skin is pink, warm \T\ dry. normal. Vital Signs: 10:40 BP 150 / 87; Pulse 98; Resp 16; Temp 98.1(O); Pulse Ox 97% on R/A; Weight 68.04 kg; sv Pain 10/10; ED Course: 10:27 Patient arrived in ED. as 10:27 Katherine Al MD is Private Physician. as 10:40 Triage completed. sv 10:40 Arm band placed on right wrist. sv 10:45 Melinda English RN is Primary Nurse. aj 10:45 Patient has correct armband on for positive identification. aj 10:49 Duncan Jaeger MD is Attending Physician. gs 11:10 No provider procedures requiring assistance completed. Patient did not have IV access aj during this emergency room visit. Administered Medications: No medications were administered Outcome: 11:06 Discharge ordered by . gs 11:10 Discharged to home ambulatory. aj 11:10 Condition: good 11:10 Discharge instructions given to patient, Instructed on discharge instructions, follow up and referral plans. medication usage, Demonstrated understanding of instructions, follow-up care, medications, Prescriptions given X 2. 11:17 Patient left the ED. aj Signatures: Roxie Kirkland RN RN sv Myers, Amanda, RN RN aj Martinez, Amelia as Duncan Jaeger MD MD gs
[2017-11-17 11:20] VITALS: BP 150/87; TEMP 98.1; O2SAT 97
== END 2017-11-17 11:17 | disposition home or self-care (01) ==
LOC: ER 10:26
DX: L23.9 Allergic contact dermatitis, unspecified cause (principal); E11.9 Type 2 diabetes mellitus without complications; I10 Essential (primary) hypertension; Z88.6 Allergy status to analgesic agent
CPT/HCPCS: 99282

== ENCOUNTER 2018-02-16 20:37 | Emergency (ER) | payer OTHER ==
--- NOTE | 2018-02-16 22:06 | RAD REPORT ---
EXAM DESCRIPTION: CT - Stone Protocol - 02/16/2018 9:35 pm CLINICAL HISTORY: Back pain, abdominal pain, flank pain COMPARISON: CT study September 2017 TECHNIQUE: Axial 5 mm thick images were obtained without oral or IV contrast. The [id number] span s the entirety of the system including uppermost abdomen and lung bases. All CT scans are performed using dose optimization technique as appropriate and may include automated exposure control or mA/KV adjustment according to patient size. FINDINGS: No hydronephrosis is present and no obstructing ureteral calculi. No suspicious renal mass es. Isodense masses and pyelonephritis are not excluded on a stone protocol CT scan. No urinary bladd er suspicious finding. Imaged portions of the liver, spleen and pancreas show no suspicious findings on non-contrast imaging . Cholecystectomy clips are present. No biliary tree dilatation. No significant adrenal finding. No suspicious bowel findings. Uterus and ovaries show no suspicious findings. Urinary bladder is cont racted limiting detail. No mass or bulky lymphadenopathy. Fat extends into the origin of each inguinal canal. No free air, fr ee fluid or inflammatory stranding. No significant bony abnormality. IMPRESSION: No hydronephrosis, obstructing calculus or acute finding. Isodense masses and pyelonephritis are not excluded on stone protocol technique. No bowel obstruction, free air or emergent finding. No acute colon or small bowel finding. Mild enter itis findings can be occult on CT imaging.
[2018-02-16 22:10] LABS: Urine Blood 2+ (NEG); Urine Glucose NEGATIVE (NEG); Urine Protein TRACE (NEG); Urine Specific Gravity 1.015 (1.005-1.030)
--- NOTE | 2018-02-16 22:11 | EDPHYS ---
Physician Documentation [facility] Name: Soledad Watts Age: 68 yrs Sex: Female : 1950 Arrival Date: 02/16/2018 Time: 20:44 Bed 11 Private MD: ED Physician Le Romeo HPI: 02/16 23:44 This 68 yrs old Black Female presents to ER via Ambulatory with complaints of Back Pain.snw 23:44 The patient presents with pain that is chronic, with no known mechanism of injury. The snw symptoms are located in the low back. Onset: The symptoms/episode began/occurred and became worse yesterday. The pain does not radiate. Associated signs and symptoms: The patient has no apparent associated signs or symptoms. Modifying factors: The patient symptoms are alleviated by nothing. Severity of symptoms: At their worst the symptoms were moderate. The patient has experienced similar episodes in the past, chronically. sees pain management. takes metformin, unable to take non-steroidals, allergic to codeine, discussed with pt steroids will increase blood sugar temporarily. Historical: - Allergies: 20:44 Codeine; la1 20:44 Talwin; la1 20:44 Toradol; la1 - PMHx: 20:44 CHRONIC LOW BACK PAIN; Diabetes - NIDDM; Hypertension; la1 - Immunization history:: Adult Immunizations up to date. - Social history:: Smoking status: Patient/guardian denies using tobacco. - Ebola Screening: : No symptoms or risks identified at this time. ROS: 23:43 Constitutional: Negative for fever, chills, and weight loss, Eyes: Negative for injury, snw pain, redness, and discharge, ENT: Negative for injury, pain, and discharge, Neck: Negative for injury, pain, and swelling, Cardiovascular: Negative for chest pain, palpitations, and edema, Respiratory: Negative for shortness of breath, cough, wheezing, and pleuritic chest pain, Abdomen/GI: Negative for abdominal pain, nausea, vomiting, diarrhea, and constipation, : Negative for injury, bleeding, discharge, and swelling, MS/Extremity: Negative for injury and deformity, Skin: Negative for injury, rash, and discoloration, Neuro: Negative for headache, weakness, numbness, tingling, and seizure. 23:43 Back: Positive for pain at rest, pain with movement, of the low back area, not different than usual back pain. Exam: 23:41 Constitutional: This is a well developed, well nourished patient who is awake, alert, snw and in no acute distress. Head/Face: Normocephalic, atraumatic. Eyes: Pupils equal round and reactive to light, extra-ocular motions intact. Lids and lashes normal. Conjunctiva and sclera are non-icteric and not injected. Cornea within normal limits. Periorbital areas with no swelling, redness, or edema. ENT: Nares patent. No nasal discharge, no septal abnormalities noted. Tympanic membranes are normal and external auditory canals are clear. Oropharynx with no redness, swelling, or masses, exudates, or evidence of obstruction, uvula midline. Mucous membranes moist. Neck: Trachea midline, no thyromegaly or masses palpated, and no cervical lymphadenopathy. Supple, full range of motion without nuchal rigidity, or vertebral point tenderness. No Meningismus. Chest/axilla: Normal chest wall appearance and motion. Nontender with no deformity. No lesions are appreciated. Cardiovascular: Regular rate and rhythm with a normal S1 and S2. No gallops, murmurs, or rubs. Normal PMI, no JVD. No pulse deficits. Respiratory: Lungs have equal breath sounds bilaterally, clear to auscultation and percussion. No rales, rhonchi or wheezes noted. No increased work of breathing, no retractions or nasal flaring. Abdomen/GI: Soft, non-tender, with normal bowel sounds. No distension or tympany. No guarding or rebound. No evidence of tenderness throughout. Skin: Warm, dry with normal turgor. Normal color with no rashes, no lesions, and no evidence of cellulitis. MS/ Extremity: Pulses equal, no cyanosis. Neurovascular intact. Full, normal range of motion. Neuro: Awake and alert, GCS 15, oriented to person, place, time, and situation. Cranial nerves II-XII grossly intact. Motor strength 5/5 in all extremities. Sensory grossly intact. Cerebellar exam normal. Normal gait. 23:41 Back: pain, that is moderate, ROM is painless, normal spinal alignment noted, CVA tenderness, is absent, vertebral tenderness, is not appreciated, hx of chronic back pain. 23:43 Neuro: Exam negative for acute changes. snw Vital Signs: 20:45 BP 160 / 97; Pulse 92; Resp 16; Temp 98.4; Pulse Ox 100% on R/A; Weight 70.31 kg; la1 Height 5 ft. 2 in. (157.48 cm); 20:45 Body Mass Index 28.35 (70.31 kg, 157.48 cm) la1 MDM: 21:26 Patient medically screened. snw 23:43 Data reviewed: vital signs, nurses notes. Data interpreted: Pulse oximetry: on room air snw is 100 %. Interpretation: normal. Counseling: I had a detailed discussion with the patient and/or guardian regarding: the historical points, exam findings, and any diagnostic results supporting the discharge/admit diagnosis, the presence of at least one elevated blood pressure reading (>120/80) during this emergency department visit, lab results, the need for outpatient follow up, to return to the emergency department if symptoms worsen or persist or if there are any questions or concerns that arise at home. Special discussion: I have referred the patient to see his PCP for further evaluation of high blood pressure. Based on the history and exam findings, there is no indication for further emergent testing or inpatient evaluation. I discussed with the patient/guardian the need to see the primary care provider for further evaluation of the symptoms. 02/16 21:13 Order name: Urine Dipstick--Ancillary (enter results); Complete Time: 22:11 rg2 02/16 21:23 Order name: CT Stone Protocol; Complete Time: 22:08 snw Administered Medications: 22:23 Drug: predniSONE 20 mg Route: PO; la1 22:24 Follow up: Response: No adverse reaction la1 22:23 Drug: Flexeril 10 mg Route: PO; la1 22:23 Follow up: Response: No adverse reaction la1 Disposition: 02/17 01:10 Co-signature as Attending Physician, Le Romeo MD. ma2 Disposition: 02/16/18 22:10 Discharged to Home. Impression: Low back pain, Hematuria, unspecified - microscopic. - Condition is Stable. - Discharge Instructions: Back Pain, Adult, Hematuria, Adult, Hypertension, Musculoskeletal Pain, Cryotherapy, Rehydration, Adult, Heat Therapy. - Prescriptions for Prednisone 20 mg Oral Tablet - take 2 tablet by ORAL route once daily for 5 days; 10 tablet. orphenadrine citrate 100 mg Oral Tablet Sustained Release - take 1 tablet by ORAL route 2 times per day As needed; 20 tablet. - Medication Reconciliation Form, Thank You Letter, Antibiotic Education, Prescription Opioid Use form. - Follow up: Private Physician; When: Tomorrow; Reason: Recheck today's complaints, Continuance of care, Re-evaluation by your physician. Follow up: Emergency Department; When: As needed; Reason: Worsening of condition. Signatures: Dispatcher [employer] EDIL Deedee Pérez FNP-C PAPER MACHINE TENDER-[employer] Sanjiv Dinero RN RN la1 Le Romeo MD MD ma2 Corrections: (The following items were deleted from the chart) 02/16 22:24 22:10 02/16/2018 22:10 Discharged to Home. Impression: Low back pain; Hematuria, la1 unspecified - microscopic. Condition is Stable. Forms are Medication Reconciliation Form, Thank You Letter, Antibiotic Education, Prescription Opioid Use. Follow up: Private Physician; When: Tomorrow; Reason: Recheck today's complaints, Continuance of care, Re-evaluation by your physician. Follow up: Emergency Department; When: As needed; Reason: Worsening of condition. snw
--- NOTE | 2018-02-16 22:11 | ER ---
Nurse's Notes [facility] Name: Soledad Watts Age: 68 yrs Sex: Female : 1950 Arrival Date: 02/16/2018 Time: 20:44 Bed 11 Private MD: Diagnosis: Low back pain;Hematuria, unspecified-microscopic Presentation: 02/16 20:45 Presenting complaint: Patient states: I have chronic back pain and the last 2 days have la1 been worse for me, Pt denies any injuries. Transition of care: patient was not received from another setting of care. Onset of symptoms was February 16, 2018. Risk Assessment: Do you want to hurt yourself or someone else? Patient reports no desire to harm self or others. Initial Sepsis Screen: Does the patient meet any 2 criteria? No. Patient's initial sepsis screen is negative. Does the patient have a suspected source of infection? No. Patient's initial sepsis screen is negative. Care prior to arrival: None. 20:45 Method Of Arrival: Ambulatory la1 20:45 Acuity: JOHN 4 la1 Historical: - Allergies: 20:44 Codeine; la1 20:44 Talwin; la1 20:44 Toradol; la1 - PMHx: 20:44 CHRONIC LOW BACK PAIN; Diabetes - NIDDM; Hypertension; la1 - Immunization history:: Adult Immunizations up to date. - Social history:: Smoking status: Patient/guardian denies using tobacco. - Ebola Screening: : No symptoms or risks identified at this time. Screenin:56 Abuse screen: Denies threats or abuse. Denies injuries from another. Nutritional aj screening: No deficits noted. Tuberculosis screening: No symptoms or risk factors identified. Fall Risk None identified. Assessment: 20:56 General: Appears in no apparent distress. comfortable, Behavior is calm, cooperative, aj appropriate for age. Pain: Complains of pain in low back area. Neuro: Level of Consciousness is awake, alert, obeys commands, Oriented to person, place, time, situation, Appropriate for age. Respiratory: Airway is patent Respiratory effort is even, unlabored, Respiratory pattern is regular, symmetrical. Derm: Skin is intact, is healthy with good turgor, Skin is pink, warm \T\ dry. normal. Musculoskeletal: Reports pain in low back area. 20:57 : No signs and/or symptoms were reported regarding the genitourinary system. Denies aj burning with urination. Vital Signs: 20:45 BP 160 / 97; Pulse 92; Resp 16; Temp 98.4; Pulse Ox 100% on R/A; Weight 70.31 kg; la1 Height 5 ft. 2 in. (157.48 cm); 20:45 Body Mass Index 28.35 (70.31 kg, 157.48 cm) la1 ED Course: 20:44 Patient arrived in ED. la1 20:45 Triage completed. la1 20:45 Arm band placed on left wrist. la1 20:56 Melinda English, RN is Primary Nurse. aj 20:56 Patient has correct armband on for positive identification. aj 21:22 Deedee Préez F[facility]-C [facility]. snw 21:22 Le Romeo MD is Attending Physician. snw 21:36 CT Stone Protocol In Process Unspecified. EDMS 22:24 No provider procedures requiring assistance completed. Patient did not have IV access la1 during this emergency room visit. Administered Medications: 22:23 Drug: predniSONE 20 mg Route: PO; la1 22:24 Follow up: Response: No adverse reaction la1 22:23 Drug: Flexeril 10 mg Route: PO; la1 22:23 Follow up: Response: No adverse reaction la1 Outcome: 22:10 Discharge ordered by . snw 22:24 Discharged to home ambulatory. la1 22:24 Condition: stable 22:24 Discharge instructions given to patient, Instructed on discharge instructions, follow up and referral plans. medication usage, Demonstrated understanding of instructions, follow-up care, medications, Prescriptions given X 2. 22:24 Patient left the ED. la1 Signatures: Dispatcher [employer] EDMS Melinda English, RN Deedee Watkins FNP-C FNP-Sanjiv Graham RN RN la1
[2018-02-16] MEDS ORDERED: predniSONE 20 MG TAB ONE (22:27)
[2018-02-16] MEDS ORDERED: CYCLOBENZAPRINE 10 MG TAB ONE (22:27)
[2018-02-16 22:45] VITALS: BP 160/97; TEMP 98.4; O2SAT 100
== END 2018-02-16 22:24 | disposition home or self-care (01) ==
LOC: ER 20:37
DX: R31.9 Hematuria, unspecified (principal); I10 Essential (primary) hypertension; Z88.5 Allergy status to narcotic agent; Z88.8 Allergy status to other drugs, medicaments and biological substances
CPT/HCPCS: 74176; 76377; 81003; 99283; J7512

== ENCOUNTER → 2018-04-26 | Day surgery (SDC) | payer OTHER ==
[2011-12-09 13:43] VITALS: BP 171/76
--- NOTE | 2018-04-26 12:04 | RAD REPORT ---
EXAM DESCRIPTION: Ultrasound-guided vacuum assisted right breast core biopsy CLINICAL HISTORY: Breast mass N63.10 COMPARISON: No comparisons FINDINGS: Informed consent was obtained and time-out was performed. The patient's right breast was prepped and draped in the usual sterile fashion. 1% lidocaine was used for local anesthetic purposes. Utilizing aseptic technique and ultrasound guidance, vacuum assisted core biopsy device was used to o btain a two core specimens through the mass of interest. A post biopsy clip was then placed. All collected material was sent for cytology. Patient tolerated procedure well. IMPRESSION: Successful ultrasound guided vacuum assisted right breast mass biopsy.
== END | disposition home or self-care (01) ==
LOC: DS 10:32
PROVIDERS: ATTEND Clinical Nurse Specialist Women's Health
DX: C50.911 Malignant neoplasm of unspecified site of right female breast (principal); Z17.0 Estrogen receptor positive status [ER+]
CPT/HCPCS: 19083; 88305

== ENCOUNTER 2018-09-11 11:45 | Emergency (ER) | payer OTHER ==
--- OUTSIDE RECORDS SUMMARY | 2018-09-11 11:48 | XMS REPORT ---
:1950 [facility] Address [address] [place] [address] [address] [place] [address] Care Team Providers Name Role Phone Unavailable Unavailable Unavailable Problems This patient has no known problems. Allergies, Adverse Reactions, Alerts This patient has no known allergies or adverse reactions. Medications This patient has no known medications. Results Test Description Test Time Test Comments Text Results Atomic Results Result Comments RAD, CHEST, 1 2018-09-02 14:32:00 Reason for FINAL REPORT PATIENT ID: VIEW, NON DEPT Exam:->C50.211 [id number] Clinical History: C50.211 Comparison Study: None Findings: The heart and lungs are within normal limits. A left-sided Port-A-Cath is in place, the tip projecting over the SVC The pleural spaces are clear. Surgical clips project over the right thorax. Degenerative changes are noted. Impression: No active cardiopulmonary disease. Signed: Ramesh Choi MDReport Verified Date/Time: 09/02/2018 14:32:25 Reading Location: [address] Consult Reading Room , TUNNEL CATH 2018-09-02 14:06:00 Reason for FINAL REPORT PATIENT ID: CENTRAL INS Exam:->C50.211 [id number] LEFT W/PORT C INTERNAL JUGULAR CHEST PORT INSERTION, UNDER FLUOROSCOPY. History: Right breast cancer. Port catheter needed for chemotherapy.. Modality: Sonography and fluoroscopy. Sedation: Versed two mg and fentanyl 125 mcg given intravenously for conscious sedation. Vital signs were monitored throughout the procedure by a nurse, and remained stable. Physician intra-service time was 30 minutes. Senior Animal Trainer: Artis Approach: Left internal jugular vein Fluoroscopy Time: Five min. Dose (Ka,r): 17 mGy. Technique: Informed written consent was obtained. Discussion of risks, benefits, and alternatives were made with the patient. The patient expressed understanding and agreed to proceed. All elements maximal sterile barrier technique was utilized for this procedure, including utilization of sterile scrub solution for skin prep, a large sterile sheet to cover the areas of the patient that were not prepped, and hand hygiene, mask, head covering, and sterile gown for performing radiologist and scrub technologist. The skin was anesthetized with 2% lidocaine. Ultrasound evaluation showed a patent and compressible left internal jugular vein, which was punctured under direct real-time ultrasound guidance with a micropuncture needle. An ultrasound image was saved to PACS. A 0.018 inch wire was placed through the needle into the right atrium. A 4 Cypriot micropuncture sheath was placed. A subcutaneous tunnel and pocket were created in the left anterior chest wall by blunt dissection. The pocket was flushed with antibiotic solution. A power injectable port was placed within the pocket and the catheter brought through the tunnel. A peel-away sheath was placed in the left IJ vein and the catheter was advanced through the sheath, with its distal tip terminating in the cavoatrial junction. The peel-away sheath was removed. The catheter was cut at 26 cm and attached to the port. The port was flushed and aspirated easily following placement. The skin incision was closed with 3-0 running subcuticular Monocryl and some amount. The small jugular incision site was closed using Dermabond. The patient tolerated the procedure well and left the department in the same condition. Results: Spot radiograph of the chest demonstrates the new left IJ Port-A-Cath to lie in the expected position with its tip overlying the cavoatrial junction. Impression: Successful, uncomplicated placement of a left internal jugular chest port using sonographic and fluoroscopic guidance and conscious sedation. Signed: Howie Artis MDReport Verified Date/Time: 09/02/2018 14:06:01 Reading Location: [facility] Radiology Reading Room
--- OUTSIDE RECORDS SUMMARY | 2018-09-11 11:48 | XMS REPORT | Clinical Summary ---
:1950 Author Organization [facility] Address [address] [place] [id number] Care Team Providers Name Role Phone Amelia Muller MD Primary Care Provider Allergies Active Allergy Reactions Severity Noted Date Comments Antiseptic Solution 09/01/2018 "surgical scrub" Codeine Nausea And Vomiting 09/01/2018 Pentazocine Lactate Nausea And Vomiting 09/01/2018 Ketorolac Nausea And Vomiting 09/01/2018 Medications Medication Sig Dispensed Refills Start Date End Date Status amLODIPine (NORVASC) 5 MG Take 5 mg by 0 Active tablet mouth daily. cyclobenzaprine Take 10 mg by 0 Active (FLEXERIL) 10 MG tablet mouth 3 (three) times daily as needed for Muscle spasms. gabapentin (NEURONTIN) Take 300 mg by 0 Active 300 MG capsule mouth 2 (two) times daily. HYDROcodone-acetaminophen Take 1 tablet 0 Active (NORCO 7.5-325) 7.5-325 by mouth every mg per tablet 6 (six) hours as needed for Pain. hydrOXYzine (ATARAX) 10 Take 10 mg by 0 Active mg/5 mL syrup mouth 4 (four) times daily as needed for Itching. lisinopril Take 20 mg by 0 Active (PRINIVIL,ZESTRIL) 20 MG mouth daily . tablet meloxicam (MOBIC) 15 MG Take 15 mg by 0 Active tablet mouth daily. metFORMIN (GLUCOPHAGE-XR) Take 750 mg by 0 Active 750 MG 24 hr tablet mouth 2 (two) times daily. metoprolol (TOPROL-XL) 50 Take 50 mg by 0 Active MG 24 hr tablet mouth nightly. zolpidem (AMBIEN) 10 mg Take 10 mg by 0 Active tablet mouth every night as needed for Insomnia. ALPRAZolam (XANAX) 0.25 Take 0.25 mg by 0 Active MG tablet mouth every night as needed for Anxiety. Active Problems Not on file Encounters Date Type Specialty Care Team Description 09/02/2018 Hospital Encounter Amelia Muller MD Malignant neoplasm of upper-inner quadrant of right female breast, unspecified estrogen receptor status (HCC) 09/02/2018 Hospital Encounter Amelia Muller MD Malignant neoplasm of upper-inner quadrant of right female breast, unspecified estrogen receptor status (HCC) 08/26/2018 Outside Orders Amelia Muller MD Malignant neoplasm of upper-inner quadrant of right female breast, unspecified estrogen receptor status (HCC) (Primary Dx) after 09/10/2017 Social History Tobacco Use Types Packs/Day Years Used Date Never Smoker Smokeless Tobacco: Never Used Alcohol Use Drinks/Week oz/Week Comments No Alcohol Habits Answer Date Recorded How often do you have a drink containing alcohol? Never 09/01/2018 How many drinks containing alcohol do you have on a typical Not asked day when you are drinking? How often do you have six or more drinks on one occasion? Not asked Sex Assigned at Date Recorded Not on file Job Start Date Occupation Industry Not on file Not on file Not on file Travel History Travel Start Travel End No recent travel history available. Last Filed Vital Signs Vital Sign Reading Time Taken Blood Pressure 141/83 09/02/2018 2:15 PM CDT Pulse 94 09/02/2018 2:15 PM CDT Temperature 36.6 C (97.8 F) 09/02/2018 1:51 PM CDT Respiratory Rate 24 09/02/2018 2:15 PM CDT Oxygen Saturation 100% 09/02/2018 2:15 PM CDT Inhaled Oxygen Concentration - - Weight 66.2 kg (146 lb) 09/02/2018 11:47 AM CDT Height 157.5 cm (5' 2") 09/02/2018 11:47 AM CDT Body Mass Index 26.7 09/02/2018 11:47 AM CDT Plan of Treatment Not on file Implants Implanted Type Area Conservation Policy Analyst Device Shelf Model / Identifier Expiration Serial / Date Lot Power Port Left: BARD ACCESS 02/22/2020 [id number] / Implanted: Qty: 1 on 09/02/2018 Chest SYSTEMS / [id number] Procedures Procedure Name Priority Date/Time Associated Comments Diagnosis ECHOCARDIOGRAM REPORT - 09/03/2018 9:22 SCAN PM CDT CARDIAC CATH REPORT - 09/03/2018 3:11 SCAN PM CDT XR CHEST 1 VIEW Routine 09/02/2018 2:08 Malignant neoplasm Results for this PORTABLE/BEDSIDE PM CDT of upper-inner procedure are in quadrant of right the results female breast, section. unspecified estrogen receptor status (HCC) IR PORT-A-CATH Routine 09/02/2018 1:35 Malignant neoplasm Results for this PLACEMENT PM CDT of upper-inner procedure are in quadrant of right the results female breast, section. unspecified estrogen receptor status (HCC) 2D ECHO W/ DOPPLER Routine 09/02/2018 10:39 Malignant neoplasm Results for this (CW/PW/COLOR) AM CDT of upper-inner procedure are in quadrant of right the results female breast, section. unspecified estrogen receptor status (HCC) after 09/10/2017 Results ECHOCARDIOGRAM REPORT - SCAN (09/03/2018 9:22 PM CDT) Narrative Performed At CARDIAC CATH REPORT - SCAN (09/03/2018 3:11 PM CDT) Narrative Performed At XR chest 1 view portable / bedside (09/02/2018 2:08 PM CDT) Specimen Narrative Performed At FINAL REPORT [facility] Clinical History: C50.211 Comparison Study: None Findings:The heart and lungs are within normal limits.A left-sided Port-A-Cath is in place, the tip projecting over the SVC The pleural spaces are clear. Surgical clips project over the right thorax. Degenerative changes are noted. Impression: No active cardiopulmonary disease. Signed: Ramesh Choi MD Report Verified Date/Time:09/02/2018 14:32:25 Reading Location: [facility] B1 C013W Consult Reading Room Procedure Note Interface, External Ris In - 09/02/2018 2:34 PM CDT FINAL REPORT Clinical History: C50.211 Comparison Study: None Findings: The heart and lungs are within normal limits. A left-sided Port-A-Cath is in place, the tip projecting over the SVC The pleural spaces are clear. Surgical clips project over the right thorax. Degenerative changes are noted. Impression: No active cardiopulmonary disease. Signed: Ramesh Choi MD Report Verified Date/Time: 09/02/2018 14:32:25 Reading Location: [facility] C013W Consult Reading Room Performing Organization Address City/State/Zipcode Phone Number [facility] IR Port-a-Cath Placement (09/02/2018 1:35 PM CDT) Specimen Narrative Performed At FINAL REPORT [facility] LEFT INTERNAL JUGULAR CHEST PORT INSERTION, UNDER FLUOROSCOPY. History: Right breast cancer. Port catheter needed for chemotherapy.. Modality: Sonography and fluoroscopy. Sedation: Versed two mg and fentanyl 125 mcg given intravenously for conscious sedation.Vital signs were monitored throughout the procedure by a nurse, and remained stable. Physician intra-service time was 30 minutes. Stone Repairer:Steff Approach: Left internal jugular vein Fluoroscopy Time: Five min.Dose (Ka,r): 17 mGy. Technique: Informed written consent was obtained. Discussion of risks, benefits, and alternatives were made with the patient. The patient expressed understanding and agreed to proceed.All elements maximal sterile barrier technique was utilized for this procedure, including utilization of sterile scrub solution for skin prep, a large sterile sheet to cover the areas of the patient that were not prepped, and hand hygiene, mask, head covering, and sterile gown for performing radiologist and scrub technologist. The skin was anesthetized with 2% lidocaine.Ultrasound evaluation showed a patent and compressible left internal jugular vein, which was punctured under direct real-time ultrasound guidance with a micropuncture needle.An ultrasound image was saved to PACS. A 0.018 inch wire was placed through the needle into the right atrium. A 4 Macedonian micropuncture sheath was placed. A subcutaneous tunnel and pocket were created in the left anterior chest wall by blunt dissection.The pocket was flushed with antibiotic solution. A power injectable port was placed within the pocket and the catheter brought through the tunnel. A peel-away sheath was placed in the left IJ veinand the catheter was advanced through the sheath, with its distal tip terminating in the cavoatrial junction. The peel-away sheath was removed.The catheter was cut at 26 cm and attached to the port. The port was flushed and aspirated easily following placement.The skin incision was closed with 3-0 running subcuticular Monocryl and some amount.The small jugular incision site was closed using Dermabond.The patient tolerated the procedure well and left the department in the same condition. Results:Spot radiograph of the chest demonstrates the new left IJ Port-A-Cath to lie in the expected position with its tip overlying the cavoatrial junction. Impression: Successful, uncomplicated placement of a left internal jugular chest port using sonographic and fluoroscopic guidance and conscious sedation. Signed: Howie Artis MD Report Verified Date/Time:09/02/2018 14:06:01 Reading Location: [facility] Radiology Reading Room Procedure Note Interface, External Ris In - 09/02/2018 2:08 PM CDT FINAL REPORT LEFT INTERNAL JUGULAR CHEST PORT INSERTION, UNDER FLUOROSCOPY. History: Right breast cancer. Port catheter needed for chemotherapy.. Modality: Sonography and fluoroscopy. Sedation: Versed two mg and fentanyl 125 mcg given intravenously for conscious sedation. Vital signs were monitored throughout the procedure by a nurse, and remained stable. Physician intra-service time was 30 minutes. Stone Repairer: Steff Approach: Left internal jugular vein Fluoroscopy Time: [...] needle into the right atrium. A 4 Macedonian micropuncture sheath was placed. A subcutaneous tunnel [...] guidance and conscious sedation. Signed: Howie Artis MD Report Verified Date/Time: 09/02/2018 14:06:01 Reading Location: [facility] Radiology Reading Room Performing Organization Address City/State/Zipcode Phone Number [email or web address] 2D Echo W/Doppler(CW/PW/Color) (09/02/2018 10:39 AM CDT) Ejection Fraction [facility] [employer] [facility] Specimen Narrative Performed At Transthoracic Echocardiography Report (TTE) [facility] [employer] [facility] Demographics Patient Name JACE WATTSate of Study 09/02/2018 SUSIE [id number] GenderFemale Visit Number [id number] [id number] Room Number Number Date of Birth1950 Referring Physician 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 Physician Procedure Type of Study TTE procedure:2DECHO W DOPPLER(CW/PW/COLOR) (Routine) Indications:Malignant neoplasm. Clinical History Cancer Diabetes HTN Height: 62 inches Weight: 67.13 kg (148 lbs) BSA: 1.68 m^2 BMI: 27.07 kg/m^2 HR: 85 bpm Summary Mild concentric LVH with normal internal dimensions. Normal LV systolic function with an estimated LVEF of 55-60%. Grade 1 diastolic dysfunction. No obvious structural valvular abnormalities visualized. There appears to be no significant functional valvular abnormality seen. No evidence of pulmonary hypertension; estimated PA systolic pressure of 15 mm Hg, assuming an RA pressure of 3 mm Hg. No pericardial effusion. No previous study to compare from. Signature Findings Left Ventricle Mild concentric LV hypertrophy. No rmal left ventricle cavity size. Al l segments contract normally. No rmal overall left ventricular systolic function. Th e visual ejection fraction was estimated 55-60 %. Gr grant 1 diastolic dysfunction (impaired relaxation an d low-normal LA pressure). Left AtriumLA size is normal . LA index <29 ml/m2. Right VentricleThe right ventricular chamber size and systolic fu nction are within normal limits. Right Atrium RA size is normal. Aortic Valve Normal AoV structure. Th ere is no aortic stenosis. Th ere is no aortic regurgitation. Mitral Valve Normal MV structure. Tr kailey mitral regurgitation. Tricuspid ValveThe tricuspid valve is not well visualized. A trace of tricuspid regurgitation. Es timated peak systolic PA pressure is 15 mmHg . Pulmonic Valve No evidence of pulmonary regurgitation. AortaAortic root size (SInus of Valsalva diameter) is no rmal . PericardiumNo pericardial effusion is visualized. IVC/SVC/PA/PV/PleuralThe inferior vena cava size is normal . Chambers/Structures Left Atrium LA Dimension: 3.94 cm Left Ventricle LVIDd: 2.6 cm LVEDV:24.69 ml LVIDs: 1.97 cm LVESV:12.31 ml LV Septum Diastolic: 1.91 cm LV Septum Systolic: 2.13 cm LV Length: 7.37 cm LV PW Diastolic: 1.5 cm LV FS: 24.2 % LV PW Systolic: 2.05 cm LVOT Diameter: 1.73 cm LVEF: 50.1 % Right Atrium RA Systolic Pressure: 10 mmHg Right Ventricle RV Systolic Pressure: 14.3 mmHg Aorta Ao Root S of Marybel.: 2.68 cm Doppler/Quantitative Measurements Mitral Valve MV Peak E-Wave: 0.93 m/sMV Peak A-Wave: 0.31 m/s P1/2t: 49.5 msecE/ A Ratio: 3.05 Peak Velocity: 1.23 m/s Peak Gradient: 3.46 mmHg Mean Velocity: 0.49 m/s Deceleration Time: 169.4 msec Mean Gradient: 1.46 mmHgArea (continuity): 2.33 cm^2 MV Area (PHT): 4.44 cm^2MR Velocity: 1.23 m/s MV VTI: 18.68 cm MV Sony. Peak: Tissue Doppler E' Septal Velocity: 0.03 m/s E' Lateral Velocity: 0.03 m/s Aortic Valve Peak Velocity: 1.42 m/sMean Velocity: 1.09 m/s Peak Gradient: 8.12 mmHg Mean Gradient: 5.31 mmHg AV Area (continuity): 1.46 cm^2 AV VTI: 29.92 cm Cusp Separation: 1.69 cm AV DVI: 0.62 LVOT Peak Velocity: 0.9 m/sPeak Gradient: 3.26 mmHg Mean Velocity: 0.67 m/s Mean Gradient: 2.03 mmHg LVOT Diameter: 1.73 cmLVOT VTI: 18.54 cm LVOT Area: 2.35 cm^2LVOT SV:43.56 ml LVOT CO: 3.7 l/minLVOT CI: 2.2 l/min/m^2 Tricuspid Valve Estimated RVSP: 14.33 mmHg Estimated RAP: 10 mmHg TR Velocity: 1.04 m/s TR Gradient: 4.3 mmHg Pulmonic Valve Peak Velocity: 0.93 m/sPeak Gradient: 3.43 mmHg Estimated PASP: 14.3 mmHg Procedure Note Interface, External Ris In - 09/03/2018 11:22 AM CDT Transthoracic Echocardiography Report (TTE) Demographics Patient Name WALT WATTS Date of Study 09/02/2018 SUSIE Gender Female Visit Number [id number] Race Unknown Room Number Number Date of 1950 Referring Physician Age 68 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 Physician Procedure Type of Study TTE procedure:2DECHO W DOPPLER(CW/PW/COLOR) (Routine) Indications:Malignant neoplasm. Clinical History Cancer Diabetes HTN Height: 62 inches Weight: 67.13 kg (148 lbs) BSA: 1.68 m^2 BMI: 27.07 kg/m^2 HR: 85 bpm Summary Mild concentric LVH with normal internal dimensions. Normal LV systolic function with an estimated LVEF of 55-60%. Grade 1 diastolic dysfunction. No obvious structural valvular abnormalities visualized. There appears to be no significant functional valvular abnormality seen. No evidence of pulmonary hypertension; estimated PA systolic pressure of 15 mm Hg, assuming an RA pressure of 3 mm Hg. No pericardial effusion. No previous study to compare from. Signature Findings Left Ventricle Mild concentric LV hypertrophy. Normal left ventricle cavity size. All segments contract normally. Normal overall left ventricular systolic function. The visual ejection fraction was estimated 55-60 %. Grade 1 diastolic dysfunction (impaired relaxation and low-normal LA pressure). Left Atrium LA size is normal . LA index <29 ml/m2. Right Ventricle The right ventricular chamber size and systolic function are within normal limits. Right Atrium RA size is normal. Aortic Valve Normal AoV structure. There is no aortic stenosis. There is no aortic regurgitation. Mitral Valve Normal MV structure. Trace mitral regurgitation. Tricuspid Valve The tricuspid valve is not well visualized. A trace of tricuspid regurgitation. Estimated peak systolic PA pressure is 15 mmHg . Pulmonic Valve No evidence of pulmonary regurgitation. Aorta Aortic root size (SInus of Valsalva diameter) is normal . Pericardium No pericardial effusion is visualized. IVC/SVC/PA/PV/Pleural The inferior vena cava size is normal . Chambers/Structures Left Atrium LA Dimension: 3.94 cm Left Ventricle LVIDd: 2.6 cm LVEDV:24.69 ml LVIDs: 1.97 cm LVESV:12.31 ml LV Septum Diastolic: 1.91 cm LV Septum Systolic: 2.13 cm LV Length: 7.37 cm LV PW Diastolic: 1.5 cm LV FS: 24.2 % LV PW Systolic: 2.05 cm LVOT Diameter: 1.73 cm LVEF: 50.1 % Right Atrium RA Systolic Pressure: 10 mmHg Right Ventricle RV Systolic Pressure: 14.3 mmHg Aorta Ao Root S of Marybel.: 2.68 cm Doppler/Quantitative Measurements Mitral Valve MV Peak E-Wave: 0.93 m/s MV Peak A-Wave: 0.31 m/s P1/2t: 49.5 msec E/A Ratio: 3.05 Peak Velocity: 1.23 m/s Peak Gradient: 3.46 mmHg Mean Velocity: 0.49 m/s Deceleration Time: 169.4 msec Mean Gradient: 1.46 mmHg Area (continuity): 2.33 cm^2 MV Area (PHT): 4.44 cm^2 MR Velocity: 1.23 m/s MV VTI: 18.68 cm MV Sony. Peak: Tissue Doppler E' Septal Velocity: 0.03 m/s E' Lateral Velocity: 0.03 m/s Aortic Valve Peak Velocity: 1.42 m/s Mean Velocity: 1.09 m/s Peak Gradient: 8.12 mmHg Mean Gradient: 5.31 mmHg AV Area (continuity): 1.46 cm^2 AV VTI: 29.92 cm Cusp Separation: 1.69 cm AV DVI: 0.62 LVOT Peak Velocity: 0.9 m/s Peak Gradient: 3.26 mmHg Mean Velocity: 0.67 m/s Mean Gradient: 2.03 mmHg LVOT Diameter: 1.73 cm LVOT VTI: 18.54 cm LVOT Area: 2.35 cm^2 LVOT SV:43.56 ml LVOT CO: 3.7 l/min LVOT CI: 2.2 l/min/m^2 Tricuspid Valve Estimated RVSP: 14.33 mmHg Estimated RAP: 10 mmHg TR Velocity: 1.04 m/s TR Gradient: 4.3 mmHg Pulmonic Valve Peak Velocity: 0.93 m/s Peak Gradient: 3.43 mmHg Estimated PASP: 14.3 mmHg Performing Organization Address City/State/Zipcode Phone Number [facility] after 09/10/2017 Insurance Payer Benefit Plan / Subscriber ID Type Phone Address Group AETNA - AET[employer] MEDICARE xxxxxxxx [facility] [phone] [address] MEDICARE [address] O [id number] [place] [address]
[2018-09-11] MEDS ORDERED: ONDANSETRON 4 MG/2 ML VIAL ONE (13:04)
[2018-09-11] MEDS ORDERED: MORPHINE 2 MG/ML SYR ONE (13:04)
[2018-09-11 13:08] LABS: Absolute Lymphocytes (CBC) 2.2 K/uL (0.7-4.9); Absolute Monocytes 0.2 K/uL (0.1-1.3); Eosinophils % 8.2 % (0-4.4); Hematocrit 42.2 % (36.0-45.0); Lymphocytes % 30.8 % (15.3-44.8); MPV 9.1 fL (7.6-11.3); Monocytes % 2.9 % (3.3-12.3); RBC Red Blood Cell Count 5.28 M/uL (3.86-4.86)
[2018-09-11 13:19] LABS: Blood Morphology Comment NOT SEEN (NOT SEEN); Platelet Estimate ADEQ; Urine White Blood Cell Casts OK
[2018-09-11 13:25] LABS: Albumin 3.9 g/dL (3.4-5.0); Bilirubin Direct 0.3 mg/dL (0-0.2); Bilirubin Total 1.4 mg/dL (0.2-1.0); Potassium 3.9 mmol/L (3.5-5.1); Protein, Total 8.3 g/dL (6.4-8.2)
--- NOTE | 2018-09-11 14:29 | RAD REPORT ---
EXAM DESCRIPTION: CT - Abdomen Pelvis W Contrast - 09/11/2018 1:42 pm CLINICAL HISTORY: Abdominal pain, chemotherapy patient COMPARISON: CT January 2018 TECHNIQUE: Biphasic, helical CT imaging of the abdomen and pelvis was performed following 100 ml non -ionic IV contrast. Oral contrast was given. All CT scans are performed using dose optimization technique as appropriate and may include automated exposure control or mA/KV adjustment according to patient size. FINDINGS: No suspicious findings in the lung bases. No pericardial thickening or effusion. Focal den sity upper inner quadrant right breast is related to known mass in recent biopsy in this location. Liver size is normal. No focal liver lesions identified. Spleen and pancreas show no suspicious findi ngs. Cholecystectomy clips are present. Intrahepatic and extrahepatic biliary tree is prominent. Duct stones can be occult. No duodenal or pancreatic mass. This can be simply the reservoir effect that c an occur after a cholecystectomy. Biliary tree was relatively prominent January 2018. Prior study w as non IV contrast and only partially comparative to the current study. Symmetric renal function is seen with no hydronephrosis or suspicious renal mass. No pyelonephritis o r acute parenchymal process. No bladder abnormalities. No adrenal abnormality. Uterus and ovaries ramon w no suspicious findings. No dilated bowel loops or bowel wall thickening. No acute GI process identified. No free air, free fl uid or inflammatory stranding. No mass or bulky lymphadenopathy. No omental thickening. No acute or destructive bone process. No suspicious bony findings. IMPRESSION: Patient is status post cholecystectomy with prominent intrahepatic and extrahepatic bili nehal tree. This is favored to be the reservoir effect that occurs after cholecystectomy. Correlation c an be made with any clinical or laboratory findings that may indicate biliary obstruction. No focal liver lesion. No ascites, omental thickening, lymphadenopathy or other malignancy related fi nding. No acute GI, or STAGE RIGGER process seen.
--- NOTE | 2018-09-11 15:25 | ER ---
Nurse's Notes [facility] Name: Soledad Watts Age: 68 yrs Sex: Female : 1950 Arrival Date: 09/11/2018 Time: 11:47 Bed 15 Private MD: Katherine Al F Diagnosis: Abdominal and pelvic pain Presentation: 09/11 11:50 Presenting complaint: Patient states: "Thursday was my first chemo treatment and I did aj1 okay, but the bottom of my stomach has been hurting all day yesterday and today, and nothing touches the pain" Denies N/V/D. Transition of care: patient was not received from another setting of care. Onset of symptoms was September 10, 2018. Risk Assessment: Do you want to hurt yourself or someone else? Patient reports no desire to harm self or others. Initial Sepsis Screen: Does the patient meet any 2 criteria? HR > 90 bpm. No. Patient's initial sepsis screen is negative. Does the patient have a suspected source of infection? Yes: Acute abdominal pain. Care prior to arrival: None. 11:50 Method Of Arrival: Ambulatory aj1 11:50 Acuity: JOHN 3 aj1 Triage Assessment: 11:53 General: Appears in no apparent distress. comfortable, Behavior is calm, cooperative, aj1 appropriate for age. Pain: Complains of pain in abdomen Pain currently is 10 out of 10 on a pain scale. GI: Patient currently denies diarrhea, pain, vomiting. Historical: - Allergies: 11:53 Codeine; aj1 11:53 Talwin; aj1 11:53 Toradol; aj1 - Home Meds: 11:53 lisinopril 20 mg Oral tab 1 tab once daily [Active]; amlodipine 5 mg tab 1 tab once aj1 daily [Active]; metoprolol tartrate 50 mg Oral tab 1 tab once daily [Active]; hydrocodone-acetaminophen 7.5-325 mg Oral tab 1 tab every 4 hours [Active]; Flexeril Oral [Active]; Zofran Oral [Active]; Prochlorperazine Maleate Oral [Active]; - PMHx: 11:53 CHRONIC LOW BACK PAIN; Diabetes - NIDDM; Hypertension; breast cancer; aj1 - PSHx: 11:53 Mastectomy, Right; aj1 - Immunization history:: Flu vaccine is up to date. - Social history:: Smoking status: Patient/guardian denies using tobacco. - Ebola Screening: : Patient denies travel to an Ebola-affected area in the 21 days before illness onset. Screenin:57 Abuse screen: Denies threats or abuse. Nutritional screening: No deficits noted. rb1 Tuberculosis screening: No symptoms or risk factors identified. Fall Risk None identified. Assessment: 11:57 General: Appears in no apparent distress. comfortable, Behavior is calm, cooperative, rb1 Denies fever. Pain: Complains of pain in suprapubic area Pain currently is 10 out of 10 on a pain scale. Neuro: Level of Consciousness is awake, alert, obeys commands, Oriented to person, place, time, situation. Cardiovascular: Capillary refill < 3 seconds is brisk in bilateral fingers. Respiratory: Airway is patent Respiratory effort is even, unlabored, Respiratory pattern is regular, symmetrical. GI: No signs and/or symptoms were reported involving the gastrointestinal system. Bowel sounds present X 4 quads. Abd is soft. : No signs and/or symptoms were reported regarding the genitourinary system. Derm: Skin is dry, Skin is normal, Skin temperature is warm. Musculoskeletal: Right mastectomy. 12:57 Reassessment: Patient appears in no apparent distress at this time. No changes from rb1 previously documented assessment. 13:48 Reassessment: Patient appears in no apparent distress at this time. Patient and/or rb1 family updated on plan of care and expected duration. Pain level reassessed. Patient is alert, oriented x 3, equal unlabored respirations, skin warm/dry/pink. Family at bedside. 14:48 Reassessment: Patient appears in no apparent distress at this time. No changes from rb1 previously documented assessment. 15:40 Reassessment: Patient appears in no apparent distress at this time. Patient and/or rb1 family updated on plan of care and expected duration. Pain level reassessed. Patient is alert, oriented x 3, equal unlabored respirations, skin warm/dry/pink. Patient states feeling better. Vital Signs: 11:53 BP 138 / 83; Pulse 107; Resp 20; Temp 98.8; Pulse Ox 100% on R/A; Weight 66.22 kg (M); aj1 Height 5 ft. 2 in. (157.48 cm); Pain 10/10; 12:15 BP 126 / 90; Pulse 97; Resp 20; Pulse Ox 100% on R/A; rb1 13:15 BP 153 / 91; Pulse 96; Resp 17; Pulse Ox 100% on R/A; rb1 14:15 BP 133 / 89; Pulse 96; Resp 18; Pulse Ox 100% on R/A; rb1 15:15 BP 137 / 85; Pulse 97; Resp 21; Pulse Ox 100% on R/A; rb1 15:45 BP 125 / 81; Pulse 91; Resp 19; Pulse Ox 100% ; rv 11:53 Body Mass Index 26.70 (66.22 kg, 157.48 cm) aj1 ED Course: 11:47 Patient arrived in ED. mr 11:47 Katherine Al MD is Private Physician. mr 11:51 Triage completed. aj1 11:53 Arm band placed on Patient placed in an exam room. aj1 11:56 Fabienne Andersen, RN is Primary Nurse. rb1 12:03 Wes Gregory PA is PHCP. [facility] 12:03 Jc Jean Baptiste MD is Attending Physician. jmm 12:04 Patient has correct armband on for positive identification. Bed in low position. Call kj1 light in reach. Side rails up X2. Warm blanket given. Verbal reassurance given. metal sash setter on. Pulse ox on. NIBP on. 12:41 Inserted saline lock: 22 gauge in left antecubital area, using aseptic technique. kj1 13:43 CT Abd/Pelvis - W/Contrast In Process Unspecified. EDMS 15:24 Katherine Al MD is Referral Physician. [facility] 15:45 No provider procedures requiring assistance completed. IV discontinued, intact, rv bleeding controlled, No redness/swelling at site. Pressure dressing applied. Administered Medications: 12:53 Drug: morphine 2 mg Route: IVP; Site: left antecubital; rb1 15:44 Follow up: Response: No adverse reaction; Pain is decreased rv 12:53 Drug: Zofran 4 mg Route: IVP; Site: left antecubital; rb1 15:43 Follow up: Response: No adverse reaction; Pain is decreased rv 14:12 Drug: morphine 4 mg Route: IVP; Site: left antecubital; hb 15:43 Follow up: Response: No adverse reaction; Pain is decreased rv Outcome: 15:24 Discharge ordered by MD. lange 15:46 Discharged to home ambulatory. rv 15:46 Condition: good 15:46 Discharge instructions given to patient, Instructed on discharge instructions, follow up and referral plans. medication usage, Demonstrated understanding of instructions, follow-up care, medications, Prescriptions given X 1. 15:46 Patient left the ED. rv Signatures: Dispatcher [employer] EDMS Luci Watts RN RN aj1 Wes Gregory PA PA jmm Rivera, Mary mr Fabienne Andersen, RN RN [facility] Martha Bain RN RN Randy Moore RN RN rv Jackson, Kandis kj1 Corrections: (The following items were deleted from the chart) 12:42 12:40 Missed attempt(s): 22 gauge in left antecubital area. kj1 kj1
--- NOTE | 2018-09-11 15:25 | EDPHYS ---
[facility] Name: Soledad Watts Age: 68 yrs Sex: Female : 1950 Arrival Date: 09/11/2018 Time: 11:47 Bed 15 Private MD: Katherine Al F ED Physician Jc Jean Baptiste HPI: 09/11 12:11 This 68 yrs old Black Female presents to ER via Ambulatory with complaints of Abdominal jmm Pain. 12:11 The patient presents with abdominal pain in the lower abdomen. Onset: The jmm symptoms/episode began/occurred 4 day(s) ago. The symptoms do not radiate. Associated signs and symptoms: Pertinent negatives: nausea and vomiting, diarrhea, fever, vaginal discharge. The symptoms are described as intermittent, sharp. This is a 68 year old female with a history of DM, HTN, breast cancer that presents to the ED with complaints of lower abdominal pain which waxes and wanes. Patient states this past Thursday recently having her first round of chemotherapy. Patient denies fever, denies vomiting, denies diarrhea, denies vaginal bleeding, denies vaginal discharge. . Historical: - Allergies: 11:53 Codeine; aj1 11:53 Talwin; aj1 11:53 Toradol; aj1 - Home Meds: 11:53 lisinopril 20 mg Oral tab 1 tab once daily [Active]; amlodipine 5 mg tab 1 tab once aj1 daily [Active]; metoprolol tartrate 50 mg Oral tab 1 tab once daily [Active]; hydrocodone-acetaminophen 7.5-325 mg Oral tab 1 tab every 4 hours [Active]; Flexeril Oral [Active]; Zofran Oral [Active]; Prochlorperazine Maleate Oral [Active]; - PMHx: 11:53 CHRONIC LOW BACK PAIN; Diabetes - NIDDM; Hypertension; breast cancer; aj1 - PSHx: 11:53 Mastectomy, Right; aj1 - Immunization history:: Flu vaccine is up to date. - Social history:: Smoking status: Patient/guardian denies using tobacco. - Ebola Screening: : Patient denies travel to an Ebola-affected area in the 21 days before illness onset. ROS: 12:11 Constitutional: Negative for fever, chills, and weight loss, Cardiovascular: Negative jmm for chest pain, palpitations, and edema, Respiratory: Negative for shortness of breath, cough, wheezing, and pleuritic chest pain. 12:11 MS/Extremity: Negative for injury and deformity. 12:11 Abdomen/GI: Positive for abdominal pain, Negative for nausea and vomiting, diarrhea. 12:11 All other systems are negative. Exam: 12:11 Constitutional: This is a well developed, well nourished patient who is awake, alert, jmm and in no acute distress. Head/Face: atraumatic. Eyes: EOMI, no conjunctival erythema appreciated ENT: Moist Mucus Membranes Neck: Trachea midline, Supple Chest/axilla: Normal chest wall appearance and motion. Cardiovascular: Regular rate and rhythm. No edema appreciated Respiratory: Normal respirations, no respiratory distress appreciated 12:11 Abdomen/GI: Inspection: abdomen appears normal, Palpation: soft, mild abdominal tenderness, in the suprapubic area, right lower quadrant and left lower quadrant. 12:11 Back: ROM is normal. 12:11 Musculoskeletal/extremity: ROM: intact in all extremities. 12:11 Skin: Appearance: Color: normal in color. 12:11 Neuro: Orientation: is normal, Mentation: is normal, Memory: is normal. 12:11 Psych: Behavior/mood is pleasant, cooperative. Vital Signs: 11:53 BP 138 / 83; Pulse 107; Resp 20; Temp 98.8; Pulse Ox 100% on R/A; Weight 66.22 kg (M); aj1 Height 5 ft. 2 in. (157.48 cm); Pain 10/10; 12:15 BP 126 / 90; Pulse 97; Resp 20; Pulse Ox 100% on R/A; rb1 13:15 BP 153 / 91; Pulse 96; Resp 17; Pulse Ox 100% on R/A; rb1 14:15 BP 133 / 89; Pulse 96; Resp 18; Pulse Ox 100% on R/A; rb1 15:15 BP 137 / 85; Pulse 97; Resp 21; Pulse Ox 100% on R/A; rb1 15:45 BP 125 / 81; Pulse 91; Resp 19; Pulse Ox 100% ; rv 11:53 Body Mass Index 26.70 (66.22 kg, 157.48 cm) aj1 MDM: 12:10 Patient medically screened. [facility] 12:11 Data reviewed: vital signs, nurses notes. [facility] 15:22 Data reviewed: lab test result(s), radiologic studies, CT scan. Counseling: I had a [facility] detailed discussion with the patient and/or guardian regarding: the historical points, exam findings, and any diagnostic results supporting the discharge/admit diagnosis, lab results, radiology results, the need for outpatient follow up, to return to the emergency department if symptoms worsen or persist or if there are any questions or concerns that arise at home. ED course: Patient states that she feels much better. CT negative. Patient advised to follow up with GI for further evaluation. patient was otherwise given strict return precautions. patient understood and agrees with the plan of care. . 09/11 12:11 Order name: Basic Metabolic Panel; Complete Time: 13: [facility] 09/11 12:11 Order name: CBC with Diff; Complete Time: 13: [facility] 09/11 12:11 Order name: Creatinine for Radiology; Complete Time: 13:26 [facility] 09/11 12:11 Order name: Hepatic Function; Complete Time: 13: [facility] 09/11 12:11 Order name: Lipase; Complete Time: 13: [facility] 09/11 13:19 Order name: CBC Smear Scan; Complete Time: 13:26 [facility] 09/11 12:11 Order name: IV Saline Lock; Complete Time: 12:47 [facility] 09/11 12:11 Order name: Labs collected and sent; Complete Time: 13:04 [facility] 09/11 12:11 Order name: CT Abd/Pelvis - W/Contrast; Complete Time: 14:33 [facility] 09/11 14:09 Order name: Urine Dipstick--Ancillary (enter results) [facility] 09/11 14:09 Order name: Urine Dipstick-Ancillary [facility] 09/11 12:11 Order name: Urine Dipstick-Ancillary (obtain specimen); Complete Time: 14:03 [facility] Administered Medications: 12:53 Drug: morphine 2 mg Route: IVP; Site: left antecubital; rb1 15:44 Follow up: Response: No adverse reaction; Pain is decreased rv 12:53 Drug: Zofran 4 mg Route: IVP; Site: left antecubital; rb1 15:43 Follow up: Response: No adverse reaction; Pain is decreased rv 14:12 Drug: morphine 4 mg Route: IVP; Site: left antecubital; hb 15:43 Follow up: Response: No adverse reaction; Pain is decreased rv Disposition: 16:27 Co-signature as Attending Physician, Jc Jean Baptiste MD I agree with the assessment and kdr plan of care. Disposition: 09/11/18 15:24 Discharged to Home. Impression: Abdominal and pelvic pain. - Condition is Stable. - Discharge Instructions: Abdominal Pain, Adult, Pelvic Pain, Female. - Prescriptions for Ultracet 37.5- 325 mg Oral Tablet - take 1 tablet by ORAL route every 6 hours - for up to 5 days; do not exceed 8 tablets per day.; 12 tablet. - Medication Reconciliation Form, Thank You Letter, Antibiotic Education, Prescription Opioid Use form. - Follow up: Katherine Al MD; When: 2 - 3 days; Reason: Recheck today's complaints, Continuance of care, Re-evaluation by your physician. Signatures: Dispatcher [employer] EDMS Luci Watts RN RN aj1 Jc Jean Baptiste MD MD [facility] Wes Gregory PA PA jmm Barber, Rebecca, RN [facility] Martha Bain RN RN Randy Moore RN RN rv Corrections: (The following items were deleted from the chart) 15:46 15:24 09/11/2018 15:24 Discharged to Home. Impression: Abdominal and pelvic pain. rv Condition is Stable. Forms are Medication Reconciliation Form, Thank You Letter, Antibiotic Education, Prescription Opioid Use. Follow up: Katherine Al; When: 2 - 3 days; Reason: Recheck today's complaints, Continuance of care, Re-evaluation by your physician. nazario
[2018-09-11 16:00] VITALS: O2SAT 100
[2018-09-11 16:01] VITALS: TEMP 98.8
[2018-09-11 16:05] VITALS: BP 125/81
[2018-09-11 20:09] LABS: Urine Blood TRACE (NEG); Urine Glucose 2+ (NEG); Urine Protein 1+ (NEG); Urine Specific Gravity 1.015 (1.005-1.030)
== END 2018-09-11 15:46 | disposition home or self-care (01) ==
LOC: ER 11:45
DX: R10.30 Lower abdominal pain, unspecified (principal); E11.9 Type 2 diabetes mellitus without complications; I10 Essential (primary) hypertension; C50.919 Malignant neoplasm of unspecified site of unspecified female breast; Z88.5 Allergy status to narcotic agent
CPT/HCPCS: 85025; 80048; 36415; 80076; 81003; 83690; 74177; 96375; 96374; 99284; Q9967; J2270; J2405

== ENCOUNTER 2019-07-17 12:54 | Emergency (ER) | payer OTHER ==
--- OUTSIDE RECORDS SUMMARY | 2019-07-17 12:57 | XMS REPORT ---
:1950 Author Organization [facility] Address [address] [place] [address] [address] [place] [address] Care Team Providers Name Role Phone Unavailable [...] REPORT PATIENT ID: VIEW, NON DEPT Exam:->C50.211 [id number] Clinical History: C50.211 Comparison Study: None Findings: The heart and lungs are within normal limits. A left-sided Port-A-Cath is in place, the tip projecting over the SVC The pleural spaces are clear. Surgical clips project over the right thorax. Degenerative changes are noted. Impression: No active cardiopulmonary disease. Signed: Ramesh Choi MDReport Verified Date/Time: 09/02/2018 14:32:25 Reading Location: [address] Consult Reading Room , TUNNEL CATH 2018-09-02 14:06:00 Reason for FINAL REPORT PATIENT ID: CENTRAL INS Exam:->[id number] LEFT W/PORT C INTERNAL JUGULAR CHEST PORT INSERTION, UNDER FLUOROSCOPY. History: Right breast cancer. Port catheter needed for chemotherapy.. Modality: Sonography and fluoroscopy. Sedation: Versed two mg and fentanyl 125 mcg given intravenously for conscious sedation. Vital signs were monitored throughout the procedure by a nurse, and remained stable. Physician intra-service time was 30 minutes. Account Administrator: Artis Approach: Left internal jugular vein Fluoroscopy [...] needle into the right atrium. A 4 Romanian micropuncture sheath was placed. A subcutaneous tunnel [...] MDReport Verified Date/Time: 09/02/2018 14:06:01 Reading Location: [facility] Radiology Reading Room
--- NOTE | 2019-07-17 14:04 | RAD REPORT ---
EXAM DESCRIPTION: RAD - Lumbar Spine 3 Views - 07/17/2019 1:58 pm CLINICAL HISTORY: Back pain FINDINGS: No fracture or dislocation Moderate spondylosis L4-5
--- NOTE | 2019-07-17 14:06 | RAD REPORT ---
EXAM DESCRIPTION: RAD - Knee Right 2 View - 07/17/2019 1:57 pm CLINICAL HISTORY: Right knee pain status post injury FINDINGS: No fracture or dislocation is seen. Mild to moderate medial joint space narrowing. Osteoporosis
--- NOTE | 2019-07-17 14:07 | RAD REPORT ---
EXAM DESCRIPTION: RAD - Knee Left 2 View - 07/17/2019 1:57 pm CLINICAL HISTORY: Left knee pain FINDINGS: No fracture or dislocation is seen. Mild to moderate medial joint space narrowing. Osteoporosis
--- NOTE | 2019-07-17 14:11 | RAD REPORT ---
EXAM DESCRIPTION: Kelle Single View07/17/2019 1:57 pm CLINICAL HISTORY: Chest pain COMPARISON: February 2019 FINDINGS: Mid and lower right lung mildly hazy. Left lung appears clear of acute infiltrate. Heart is mildly enlarged IMPRESSION: Mid and lower right lung appear mildly hazy which may indicate mild infiltrate or conflu ence of ribs and vessels. PA and lateral chest series recommended.
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
[2019-07-17 15:26] VITALS: BP 166/77; TEMP 98.3; O2SAT 100
== END 2019-07-17 15:14 | disposition home or self-care (01) ==
LOC: ER 12:54
DX: S39.012A Strain of muscle, fascia and tendon of lower back, initial encounter (principal); M25.562 Pain in left knee; M25.561 Pain in right knee; V47.5XXA Car driver injured in collision with fixed or stationary object in traffic accident, initial encounter; I10 Essential (primary) hypertension; E11.9 Type 2 diabetes mellitus without complications; Z85.3 Personal history of malignant neoplasm of breast; Z90.11 Acquired absence of right breast and nipple; Z88.5 Allergy status to narcotic agent; Z88.6 Allergy status to analgesic agent
CPT/HCPCS: 71045; 72100; 99284

== ENCOUNTER 2019-12-18 14:37 | Observation (INO) | payer OTHER ==
--- OUTSIDE RECORDS SUMMARY | 2019-12-18 14:39 | XMS REPORT | Clinical Summary ---
:1950 Author Organization [facility] Address [address] [place] [id number] Care Team Providers Name Role Phone MD Renzo Primary Care Provider Allergies Active Allergy Reactions Severity Noted Date Comments Antiseptic Solution 09/01/2018 "surgica l scrub" Codeine Nausea And Vomiting 09/01/2018 Pentazocine [...] Itching. lisinopril Take 20 mg by 0 Activ e (PRINIVIL,ZESTRIL) 20 MG mouth daily . tablet [...] for Anxiety. Active Problems Not on file Social History Tobacco Use Types Packs/Day Years [...] six or more drinks on one occasion? No t asked Sex Assigned at Date Recorded Not on file Job Start Date Occupation Industry Not on file Not on file Not on file Travel History Travel Start Travel End No recent travel history available. Last Filed Vital Signs Not on file Plan of Treatment Not on file Implants Implanted Type Area Sales Executive Insurance Device Shelf Model / Identifier Expiration Serial / Date Lot Power Port Left: BARD ACCESS 02/22/2020 [id number] / Implanted: Qty: 1 on 09/02/2018 Chest SYSTEMS / [id number] Results Not on fileafter 12/17/2018 Insurance Payer Benefit Plan / Subscriber ID Type Phone Address Group AETNA - AETNA MEDICARE xxxxxxxx Maps Contracted [phone] [address] MEDICARE MGD HMO POS [id number] [place] [address] ([address]) [address] [place] [id number]
--- OUTSIDE RECORDS SUMMARY | 2019-12-18 14:40 | XMS REPORT | Continuity of Care Document ---
:1950 Author Organization [facility] t Address [address] [place] [address] Care Team Providers Name Role Phone Renzo KELSEY Primary Care Physician Ede TELLO S Attending Clinician Doctor Unassigned, Name Attending Clinician Unavailable Raegan KELSEY Attending Clinician Renzo KELSEY Attending Clinician Rico MENDOZA Attending Clinician Baldomero PELLETIER, L Attending Clinician Umair SAENZ Attending Clinician Rosana SAENZ Attending Clinician Payers Payer Name Policy Type Policy Effective Date Expiration Date Sour ce Number AETNA MEDICAREAETNA [id number] 2019 MD Ulloa MEDICARE 00:00:00 [id number] e Problems Condition Condition Condition Status Onset Resolution Last Treating Co mments Source Name Details Category Date Date Treatment Clinician Date Peripheral Peripheral Disease Active 2019-0 M D neuropathi neuropathi 6-18 An derso c pain c pain 00:00: n 00 Infiltrati Infiltrati Disease Active M D ng duct ng duct 05-26 Anderso carcinoma carcinoma 00:00: n of upper of upper 00 inner inner quadrant quadrant of right of right female female breast breast Lower back Lower back Disease Active 0 M D injury injury 05-25 Anderso 00:00: n 00 Chronic Chronic Disease Active back pain back pain Darin rso n Diabetes Diabetes Disease Active mellitus mellitus Dandy o type 2 type 2 n without without retinopath retinopath y y Hypertensi Hypertensi Disease Active M D on on Anderso n Insomnia Insomnia Disease Active MD Heidi lind Narcotic Narcotic Disease Active Overview: drug user drug user Managed And erso by Dr. lelo Agu[place], [place] Allergies, Adverse Reactions, Alerts Allergy Allergy Status Severity Reaction(s) Onset Inactive Treating Comm ents Source Name Type Date Date Clinician Antisept Propensi Active "surgical [facility] adverse [facility] reaction 00 [facility] Codeine Propensi Active Nausea And [address] [facility] to Vomiting 4-10 [facility] - adverse 00:00: Medical reaction 00 Center s Pentazoc Propensi Active Nausea And 2019-[address] [facility] [address] [facility] ty to Vomiting 4-10 [facility] - Lactate adverse 00:00: Medical reaction 00 Center s Ketorola Propensi Active Nausea And [address] [facility] [address] [facility] ty to Vomiting 4-10 [facility] - adverse 00:00: Medical reaction 00 Center s Family History Family Member Diagnosis Comments Start Date Stop Date Source Maternal uncle Colon cancer MD Barrera son Natural mother Colon cancer Bruce son Social History Social Habit Start Date Stop Date Quantity Comments Source History SDNJ [facility] Std Drinks Medica l Center History SDOH [facility] - Alcohol Binge Medical Stefan ter Sex Assigned At MD Dorman on History [facility] 2018-09-01 2018-09-[address] [facility] - Alcohol Frequency 00:00:00 00:00:00 Medical Center Tobacco use and 2018-07-23 2018-07-23 Never used MD Dorman on exposure 00:00:00 00:00:00 Alcohol intake 2018-07-23 2018-07-23 Current MD Heidi lind 00:00:00 00:00:00 non-drinker of alcohol (finding) Smoking Status Start Date Stop Date Source Never smoker MD Ulloa Medications Ordered Filled Start Stop Current Ordering Indication Dosage Frequency Signature Comments Components Source Medication Medication Date Date Medication? Clinician (SIG) Name Name lisinopril Yes 20mg Take 20 mg M D (PRINIVIL,Z 2-12 by mouth. And erso ESTRIL) 20 18:14: n mg tablet 52 amLODIPine 2019- Yes 5mg Take 5 mg (NORVASC) 5 2-12 by mouth. And erso mg tablet 18:14: n 52 omeprazole 2019-0 Yes Take by (PriLOSEC) 2-12 mouth Anderso 10 MG 18:14: daily. n capsule 52 triamcinolo 2018-05 Yes Pruritic Apply M D ne -19 rash topically Anderso (TRIDERM) 00:00: to n 0.1% cream 00 affected area(s) 3 (three) times a day as needed for rash. lidocaine-p 2019- No Infiltratin Apply to rilocaine 12-22 02-07 g duct Port-A-Cat A nderso (EMLA) 00:00: 00:00 carcinoma h area 30 n 2.5-2.5% 00 :00 of upper to 45 cream inner minutes quadrant of prior to right port female access as breast directed (topical anesthetic ). ondansetron 2019- No Infiltratin 8mg Take 1 (ZOFRAN) 8 12-22 02-07 g duct tablet (8 A nderso mg tablet 00:00: 00:00 carcinoma mg) by n 00 :00 of upper mouth inner every 8 quadrant of (eight) right hours as female needed for breast nausea. amoxicillin 2019- No TAKE 1 -clavulanat 12-09 08-13 TABLET BY An derso e 00:00: 00:00 MOUTH n (AUGMENTIN) 00 :00 TWICE 500 mg-125 DAILY mg per tablet metoprolol Yes 50mg Take 50 mg M D tartrate 7-11 by mouth Anderso (LOPRESSOR) 00:00: at n 50 mg 00 bedtime. tablet BASAGLAR Yes INJECT 20 MD LIRA 6-20 UNITS Anderso U-100 00:00: SUBCUTANEO n INSULIN 100 00 USLY ONCE unit/mL (3 DAILY mL) insulin pen triamcinolo 2019- No Pruritic Apply MD mccrary 6-18 18 rash topically Anderso (TRIDERM) 00:00: 00:00 to n 0.1% cream 00 :00 affected area(s) 3 (three) times a day as needed for rash. magnesium Yes Hypomagnese 500mg Take 1 MD oxide 500 5-30 kyaw tablet Anderso mg tablet 00:00: (500 mg) n 00 by mouth twice daily. famotidine 2019- No (PEPCID) 40 4-13 09 Anderso mg tablet 00:00: 00:00 n 00 :00 lisinopril Yes 20mg QD Take [address] (PRINIVIL,Z 4-10 by mouth [facility] - ESTRIL) 20 10:45: daily . Medi alexandro MG tablet 11 Brave meloxicam Yes 15mg QD Take [address] [facility] [address] [facility] (MOBIC) 15 4-10 by mouth [facility] - MG tablet 10:36: daily. Medica l 45 Brave metFORMIN Yes 750mg Q.5D Take [address] [facility] (GLUCOPHAGE 4-10 mg by [facility] - -XR) 750 MG 10:36: mouth 2 Med ical 24 hr 45 (two) Center tablet times daily. metoprolol Yes 50mg QD Take [address] (TOPROL-XL) 4-10 by mouth Luke s - 50 MG 24 hr 10:36: nightly. Me dical tablet 45 Brave zolpidem Yes 10mg Take [address] [facility] (AMBIEN) 10 4-10 by mouth Luke s - mg tablet 10:36: every Medical 45 night as Center needed for Insomnia. ALPRAZolam Yes .25mg Take 0.[address] (XANAX) 4-10 mg by [facility] - 0.25 MG 10:36: mouth Medical tablet 45 every Center night as needed for Anxiety. amLODIPine Yes 5mg QD Take [address] [facility] [address] [facility] (NORVASC) 5 4-10 by mouth Luke s - MG tablet 10:36: daily. Medica l 44 Brave cyclobenzap 0 Yes 10mg Take [address] [facility] rine 4-10 by mouth 3 [facility] - (FLEXERIL) 10:36: (three) Medi alexandro 10 MG 44 times Center tablet daily as needed for Muscle spasms. gabapentin 2019 Yes 300mg Q.5D Take [address] (NEURONTIN) 4-10 mg by [facility] - 300 MG 10:36: mouth 2 Medical capsule 44 (two) Center times daily. HYDROcodone 2019 Yes 1{tbl} Take [address] -acetaminop 4-10 tablet by Cody es - hen (NORCO 10:36: mouth Medica l 7.5-325) 44 every 6 Center 7.5-325 mg (six) per tablet hours as needed for Pain. hydrOXYzine Yes 10mg Take [address] [facility] (ATARAX) 10 4-10 by mouth 4 Keren kes - mg/5 mL 10:36: (four) Medical syrup 44 times Center daily as needed for Itching. ALPRAZolam Yes MD (XANAX) 4-08 Anderso 0.25 mg 00:00: n tablet 00 prochlorper 2019- No Infiltratin 10mg Take 1 MD azine 08-23 02-07 g duct tablet (10 Bruce so (COMPAZINE) 00:00: 00:00 carcinoma mg) by n 10 mg 00 :00 of upper mouth tablet inner every 6 quadrant of (six) right hours as female needed for breast nausea or vomiting. lidocaine-p 2018- No Infiltratin Apply to MD rilocaine 08-23 07-31 g duct Port-A-Cat A nderso (EMLA) 00:00: 00:00 carcinoma h area 30 n 2.5-2.5% 00 :00 of upper to 45 cream inner minutes quadrant of prior to right port female access as breast directed (topical anesthetic ). ondansetron 2018- No Infiltratin 8mg Take 1 MD (ZOFRAN) 8 4- 07-31 g duct tablet (8 A nderso mg tablet 00:00: 00:00 carcinoma mg) by n 00 :00 of upper mouth inner every 8 quadrant of (eight) right hours as female needed for breast nausea. hydrOXYzine 2018- No Infiltratin 25mg Take 12.5 MD HCl 3-18 09-25 g duct mL (25 mg) Dandy o (ATARAX) 10 00:00: 00:00 carcinoma by mouth 4 n mg/5 mL 00 :00 of upper (four) syrup inner times a quadrant of day as right needed for female itching. breast gabapentin Yes 3 (three) (NEURONTIN) 3-06 times a Bruce so 300 mg 00:00: day. n capsule 00 HYDROcodone Yes TAKE 1 MD -acetaminop 6-20 TABLET BY And erso abhi (NORCO) 00:00: MOUTH 4 n 7.5 mg-325 00 TIMES mg per DAILY MAY tablet MAKE DROWSY meloxicam Yes TAKE 1 (MOBIC) 15 6-20 TABLET BY Darin rso mg tablet 00:00: MOUTH WITH n 00 FOOD ONCE DAILY DO NOT TAKE ASPIRIN cyclobenzap Yes TAKE 1 rine 6-20 TABLET BY Andersrobin (FLEXERIL) 00:00: MOUTH 2 n 10 mg 00 TIMES tablet DAILY NEEDED MAY MAKE DROWSY ibuprofen 2019- No 600mg 600 mg. (ADVIL,MOTR 901-25 Anderso IN) 600 mg 00:00: 00:00 n tablet 00 :00 Vital Signs Vital Name Observation Time Observation Value Comments Source Systolic blood pressure 2019-07-06 17:58:08 119 mm[Hg] MD Ulloa Diastolic blood pressure 2019-07-06 17:58:08 75 mm[Hg] MD Ulloa Heart rate 2019-07-06 17:58:08 102 /min MD Bruce calzada Body temperature 2019-07-06 17:58:08 36.78 Aaliyah MD Tanja beckman Respiratory rate 2019-07-06 17:58:08 18 /min MD Tanja beckman Body weight 2019-07-06 17:58:08 68.1 kg MD Bruce calzada BMI 2019-07-06 17:58:08 26.94 kg/m2 MD Bruce calzada Procedures Procedure Date / Time Performed Performing Clinician [facility] e SURGICAL BIOPSY HISTORIC 2019-07-06 18:00:00 Rj Wright MD MAMMO DIGITAL DIAGNOSTIC 2019-07-06 15:49:33 Stephanie Gómez MD BILATERAL W EDGAR PATHOLOGY BIOPSY SPECIMEN 2019-07-06 00:00:00 Peter Carlin INTERPRETATION COMPLETE BLOOD COUNT W/ 2019-03-01 18:19:31 Lori Wayne MD DIFFERENTIAL COMPREHENSIVE METABOLIC PANEL 2019-03-01 18:19:31 Ltizy Wayne MD Results CBC 2019-03-01 18:19:31 Lori Wayne MD Andsamo n MANUAL DIFFERENTIAL 2019-03-01 18:19:31 Lori Wayne MD And erson GLUCOSE LEVEL 2019-03-01 18:19:31 Lori Wayne MD Anderso n BLOOD UREA NITROGEN 2019-03-01 18:19:31 Lori Wayne MD And erson ELECTROLYTE PANEL 2019-03-01 18:19:31 Lori Wayne MD Bruce son SERUM CREATININE 2019-03-01 18:19:31 Lori Wayne MD Dandy on .GLOMERULAR FILTRATION RATE 2019-03-01 18:19:31 Glen Wayne CALCIUM LEVEL TOTAL 2019-03-01 18:19:31 Lori Wayne MD And erson ALBUMIN LEVEL 2019-03-01 18:19:31 Lori Wayne MD Anderso n ALKALINE PHOSPHATASE 2019-03-01 18:19:31 Lori Wayne MDson ALANINE AMINOTRANSFERASE 2019-03-01 18:19:31 Lori Wayne ASPARTATE AMINOTRANSFERASE 2019-03-01 18:19:31 Lori Wayne MD TOTAL PROTEIN 2019-03-01 18:19:31 Lori Wayne MD Anderso n FRACTIONATED BILIRUBIN 2019-03-01 18:19:31 Lori Wayne MD COMPLETE BLOOD COUNT W/ 2019-01-25 12:28:40 Amelia Muller MD DIFFERENTIAL COMPREHENSIVE METABOLIC PANEL 2019-01-25 12:28:40 Litzy Wayne MD Results CBC 2019-01-25 12:28:40 Amelia Muller MD MANUAL DIFFERENTIAL 2019-01-25 12:28:40 Amelia Muller MD Bruce son GLUCOSE LEVEL 2019-01-25 12:28:40 Lori Wayne MD Anderso n BLOOD UREA NITROGEN 2019-01-25 12:28:40 Lori Wayne MD And erson ELECTROLYTE PANEL 2019-01-25 12:28:40 Lori Wayne MD Bruce son SERUM CREATININE 2019-01-25 12:28:40 Lori Wayne MD on .GLOMERULAR FILTRATION RATE 2019-01-25 12:28:40 Geln Wayne CALCIUM LEVEL TOTAL 2019-01-25 12:28:40 Lori Wayne MD And erson ALBUMIN LEVEL 2019-01-25 12:28:40 Lori Wayne MD ALKALINE PHOSPHATASE 2019-01-25 12:28:40 Lori Wayne MD ALANINE AMINOTRANSFERASE 2019-01-25 12:28:40 Lori Wayne ASPARTATE AMINOTRANSFERASE 2019-01-25 12:28:40 Lori Wayne MD TOTAL PROTEIN 2019-01-25 12:28:40 Lori Wayne MD FRACTIONATED BILIRUBIN 2019-01-25 12:28:40 Lori Wayne MD COMPLETE BLOOD COUNT W/ 2019-01-04 12:52:23 Lori Wayne MD DIFFERENTIAL ASPARTATE AMINOTRANSFERASE 2019-01-04 12:52:23 Lori Wayne MD ALANINE AMINOTRANSFERASE 2019-01-04 12:52:23 Lori Wayne ALKALINE PHOSPHATASE 2019-01-04 12:52:23 Lori Wayne MD derson BILIRUBIN TOTAL 2019-01-04 12:52:23 Lori Wayne MD HEMOGLOBIN A1C 2019-01-04 12:52:23 Lori Wayne MD Results CBC 2019-01-04 12:52:23 Lori Wayne MD MANUAL DIFFERENTIAL 2019-01-04 12:52:23 Lori Wayne MD And gaurav Encounters Start End Encounter Admission Attending Care Care Encounter Source Date/Time Date/Time Type Type Clinicians Facility Department ID 2019-07-19 2019-07-19 Emergency KATHLEEN Mera [id number] 11:46:40 13:39:00 Sanjuanita Oneal [id number] [place] [id number] Cornelius [id number] 2019-07-19 2019-07-19 Orders Doctor PORTER [id number] 00:00:00 00:00:00 Only Unassigned, KAREN [id number] [facility] [id number] Results Test Description Test Time Test Comments Results Result [facility] e Comments Mammography 2019-06-25 There is no [facility] 2 mammographic evidence Diagnostic 16:05:36 of malignancy. Routine Bilateral with follow-up mammogram in Edgar 1 year is recommended. BI-RADS Category 2:Benign Finding(s) Interface, Radiology Results In - 07/06/2019 10:05 AM CSTCLINICAL INDICATION:Patient is a 69 year old female and is seen for annual diagnostic mammogram,asymptomatic with history of right breast cancer. MAMMO DIGITAL DIAGNOSTIC BILATERAL W TOMODigital Mammogram evaluated with Computer Aided Detection (CAD). COMPARISON:The present examination has been compared to prior imaging studies performed atan outside location on 07/15/2011, 08/13/2016 and 09/29/2017, and at [facility] on 07/15/2018, 12/07/2018 and 02/16/2019. FINDINGS:There are scattered areas of fibroglandular density. 1: There is an oval mass with associated skin thickening and surgical clips inthe right breast inner hemisphere at 3 o'clock. This finding is consistent withpost surgical/radiation change with seroma. The patient is status postsegmentectomy with radiation for a weakly ER+, MO-, HER2 - right 3o'clockmalignancy in July 2018. 2: There are benign appearing calcifications in both breasts. 3: There is a stable asymmetry with obscured margins in the inferior region ofthe left breast. Tomosynthesis performed in CC and MLO projections. IMPRESSION:There is no mammographic evidence of malignancy. Routine follow-up mammogram in 1 year is recommended. BI-RADS Category 2:Benign Finding(s) RAD, CHEST, 1 2018-08-23 Reason for FINAL REPORT PATIENT VIEW, NON DEPT 1 Exam:->C50.21 ID: [id number] 14:32:00 1 Clinical History: C50.211 Comparison Study: None Findings: The heart and lungs are within normal limits. A left-sided Port-A-Cath is in place, the tip projecting over the SVC The pleural spaces are clear. Surgical clips project over the right thorax. Degenerative changes are noted. Impression: No active cardiopulmonary disease. Signed: Ramesh Choi MDReport Verified Date/Time: 09/02/2018 14:32:25 Reading Location: [address] Consult Reading Room , TUNNEL CATH 2018-08-23 Reason for FINAL REPORT PATIENT CENTRAL INS 1 Exam:->C50.21 ID: [id number] LEFT W/PORT C 14:06:00 1 INTERNAL JUGULAR CHEST PORT INSERTION, UNDER FLUOROSCOPY. History: Right breast cancer. Port catheter needed for chemotherapy.. Modality: Sonography and fluoroscopy. Sedation: Versed two mg and fentanyl 125 mcg given intravenously for conscious sedation. Vital signs were monitored throughout the procedure by a nurse, and remained stable. Physician intra-service time was 30 minutes. 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 A 4 Uzbek micropuncture sheath was placed. A subcutaneous tunnel [...] and fluoroscopic guidance and conscious sedation. Signed: Mark Artis MDReport Verified Date/Time: 09/02/2018 14:06:01 Reading Location: [facility] Radiology Reading Room
[2019-12-18] MEDS ORDERED: METOPROLOL TAR 25 MG TAB ONE ×2 (15:41→15:49)
[2019-12-18] MEDS ORDERED: ASPIRIN 81 MG CHEWABLE TABLET ONE ×2 (15:41→15:49)
[2019-12-18] MEDS ORDERED: ENOXAPARIN 80 MG/0.8 ML SQ ONE ×2 (15:42→15:50)
[2019-12-18] MEDS ORDERED: FAMOTIDINE 20 MG/2 ML VIAL IV ONE ×2 (15:42→15:50)
[2019-12-18] MEDS ORDERED: NA CHLORIDE 0.9% 0 ML ONE (15:42)
--- NOTE | 2019-12-18 15:45 | EDPHYS ---
Physician Documentation [facility] Name: Soledad Cortes Age: 69 yrs Sex: Female : 1950 Arrival Date: 12/18/2019 Time: 14:38 Bed 7 Private MD: ED Physician Juanito Ulloa HPI: 12/17 15:22 This 69 yrs old Black Female presents to ER via Ambulatory with complaints of Chest tanna Pain, Nausea. 15:22 The patient or guardian reports chest pain that is located primarily in the substernal tanna area, anterior chest wall. Onset: just prior to arrival, 1 hour(s) ago. The pain does not radiate. Associated signs and symptoms: Pertinent positives: nausea, shortness of breath. The chest pain is described as a heaviness, squeezing. Duration: The patient or guardian reports a single episode, that is now resolved, that lasted 1 hour(s). Modifying factors: The symptoms are alleviated by nothing. the symptoms are aggravated by nothing. Severity of pain: At its worst the pain was mild in the emergency department the pain is unchanged. The patient has not experienced similar symptoms in the past. Historical: - Allergies: 14:50 Codeine; hb 14:50 Talwin; hb 14:50 Toradol; hb - Home Meds: 14:50 amlodipine 5 mg tab 1 tab once daily [Active]; Flexeril Oral [Active]; hb hydrocodone-acetaminophen 7.5-325 mg Oral tab 1 tab every 4 hours [Active]; metoprolol tartrate 50 mg Oral tab 1 tab once daily [Active]; prochlorperazine maleate Oral [Active]; Zofran Oral [Active]; lisinopril 20 mg Oral tab 1 tab once daily [Active]; - PMHx: 14:50 CHRONIC LOW BACK PAIN; breast cancer; Diabetes - NIDDM; Hypertension; hb - PSHx: 14:50 Mastectomy, Right; hb - Immunization history:: Adult Immunizations up to date. - Social history:: Smoking status: Patient denies any tobacco usage or history of. - Family history:: not pertinent. ROS: 15:22 Constitutional: Negative for fever, chills, and weight loss, Eyes: Negative for injury, tanna pain, redness, and discharge, ENT: Negative for injury, pain, and discharge, Neck: Negative for injury, pain, and swelling, Abdomen/GI: Negative for abdominal pain, nausea, vomiting, diarrhea, and constipation, Back: Negative for injury and pain, : Negative for injury, bleeding, discharge, and swelling, MS/Extremity: Negative for injury and deformity, Skin: Negative for injury, rash, and discoloration, Neuro: Negative for headache, weakness, numbness, tingling, and seizure, Psych: Negative for depression, anxiety, suicide ideation, homicidal ideation, and hallucinations, Allergy/Immunology: Negative for hives, rash, and allergies, Endocrine: Negative for neck swelling, polydipsia, polyuria, polyphagia, and marked weight changes, Hematologic/Lymphatic: Negative for swollen nodes, abnormal bleeding, and unusual bruising. 15:22 Cardiovascular: Positive for chest pain. 15:22 MS/extremity: Negative for acute changes, decreased range of motion, pain, swelling, tenderness. Exam: 15:22 Constitutional: This is a well developed, well nourished patient who is awake, alert, tanna and in no acute distress. Head/Face: Normocephalic, atraumatic. Eyes: Pupils equal round and reactive to light, extra-ocular motions intact. Lids and lashes normal. Conjunctiva and sclera are non-icteric and not injected. Cornea within normal limits. Periorbital areas with no swelling, redness, or edema. ENT: Nares patent. No nasal discharge, no septal abnormalities noted. Tympanic membranes are normal and external auditory canals are clear. Oropharynx with no redness, swelling, or masses, exudates, or evidence of obstruction, uvula midline. Mucous membranes moist. Neck: Trachea midline, no thyromegaly or masses palpated, and no cervical lymphadenopathy. Supple, full range of motion without nuchal rigidity, or vertebral point tenderness. No Meningismus. Chest/axilla: Normal chest wall appearance and motion. Nontender with no deformity. No lesions are appreciated. Cardiovascular: Regular rate and rhythm with a normal S1 and S2. No gallops, murmurs, or rubs. Normal PMI, no JVD. No pulse deficits. Respiratory: Lungs have equal breath sounds bilaterally, clear to auscultation and percussion. No rales, rhonchi or wheezes noted. No increased work of breathing, no retractions or nasal flaring. Abdomen/GI: Soft, non-tender, with normal bowel sounds. No distension or tympany. No guarding or rebound. No evidence of tenderness throughout. Back: No spinal tenderness. No costovertebral tenderness. Full range of motion. Skin: Warm, dry with normal turgor. Normal color with no rashes, no lesions, and no evidence of cellulitis. MS/ Extremity: Pulses equal, no cyanosis. Neurovascular intact. Full, normal range of motion. Neuro: Awake and alert, GCS 15, oriented to person, place, time, and situation. Cranial nerves II-XII grossly intact. Motor strength 5/5 in all extremities. Sensory grossly intact. Cerebellar exam normal. Normal gait. Psych: Awake, alert, with orientation to person, place and time. Behavior, mood, and affect are within normal limits. 15:22 Musculoskeletal/extremity: DVT Exam: No signs of deep vein thrombosis. no pain, no swelling, no tenderness, negative Homans' sign noted on exam, no appreciated bluish discoloration, no erythema, no increased warmth. 15:39 ECG was reviewed by the Attending Physician. tanna Vital Signs: 14:47 BP 153 / 72; Pulse 96; Resp 16; Temp 97.9; Pulse Ox 100% on R/A; Weight 68.04 kg; hb Height 5 ft. 2 in. (157.48 cm); Pain 6/10; 20:30 BP 107 / 80; Pulse 82; Resp 18; Temp 97.9; Pulse Ox 100% on R/A; mg2 14:47 Body Mass Index 27.44 (68.04 kg, 157.48 cm) hb MDM: 14:54 Patient medically screened. tanna 15:25 Differential diagnosis: abnormal EKG, coronary artery disease chest wall pain, tanna cholecystitis, Cholelithiasis costochondritis, esophagitis, pancreatitis, pulmonary embolus, stable angina, unstable angina. HEART Score: History: Moderately Suspicious (1), ECG: Non specific repolarization disturbance / LBTB / PM (1), Age: > or = 65 years (2), Risk Factors: > or = 3 Risk factors for atherosclerotic disease (2). The patient was given aspirin in the Emergency Department. The patient's deep vein thrombosis risk score was calculated as follows: Total Score: 0. This patient was found to be at low risk for a deep vein thrombosis by using the Well's assessment criteria. The patient's pulmonary embolism risk score was calculated as follows: Total Score: 0-2 points. This patient was found to be at low risk for a pulmonary embolism by using the Well's assessment criteria. MAGDALENO Risk Score: 1 - patient's age is greater or equal to 65 years, 1 - Three or more CAD risk factors, TOTAL SCORE = 2. Data reviewed: vital signs, nurses notes, lab test result(s), EKG, radiologic studies, plain films. 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 Test interpretation: by ED physician or midlevel provider: ECG, plain radiologic studies. Counseling: I had a detailed discussion with the patient and/or guardian regarding: the historical points, exam findings, and any diagnostic results supporting the discharge/admit diagnosis, lab results, radiology results, the need for further work-up and treatment in the hospital. 12/17 15:22 Order name: Basic Metabolic Panel; Complete Time: 17:03 [facility] 12/17 15:22 Order name: CBC with Diff; Complete Time: 16: [facility] 12/17 15:22 Order name: LFT's; Complete Time: 17:03 [facility] 12/17 15:22 Order name: Magnesium; Complete Time: 17:03 [facility] 12/17 15:22 Order name: NT PRO-BNP; Complete Time: 17:03 [facility] 12/17 15:22 Order name: Troponin (emerg Dept Use Only); Complete Time: 17:03 [facility] 12/17 15:22 Order name: XRAY Chest (1 view); Complete Time: 16: [facility] 12/17 15:22 Order name: Lipase; Complete Time: 17:03 [facility] 12/17 18:15 Order name: Urine Dipstick--Ancillary (enter results) eb 12/17 18:25 Order name: Urine Dipstick-Ancillary [facility] 12/17 20:04 Order name: Glucose, Ancillary Testing [facility] 12/17 15:22 Order name: EKG; Complete Time: 15:23 [facility] 12/17 15:22 Order name: Cardiac monitoring; Complete Time: 15:42 [facility] 12/17 15:22 Order name: EKG - Nurse/Tech; Complete Time: 15:42 [facility] 12/17 15:22 Order name: IV Saline Lock; Complete Time: 16:20 [facility] 12/17 15:22 Order name: Labs collected and sent; Complete Time: 16: [facility] 12/17 15:22 Order name: O2 Per Protocol; Complete Time: 16: [facility] 12/17 15:22 Order name: O2 Sat Monitoring; Complete Time: 16: [facility] 12/17 15:50 Order name: CONS Physician Consult EDMS EC:39 Rate is 93 beats/min. Rhythm is regular. QRS Sheldon is Normal. ND interval is normal. QRS tanna interval is normal. QT interval is normal. No Q waves. T waves are Normal. No ST changes noted. Clinical impression: NSR w/ Non-specific ST/T Changes and No evidence of ischemia. Interpreted by me. Reviewed by me. Administered Medications: 15:37 Drug: Lopressor 25 mg Route: PO; aa5 15:37 Drug: Aspirin Chewable Tablet 324 mg Route: PO; aa5 15:52 Drug: NS 0.9% 1000 ml Route: IV; Rate: 125 ml/hr; Site: left antecubital; aa5 15:52 Drug: Pepcid 20 mg Route: IVP; Site: left antecubital; aa5 15:52 Drug: Lovenox 1 mg/kg Route: Sub-Q; Site: right lower abdomen; aa5 Disposition: 12/18/19 15:44 Hospitalization ordered by Katherine Al for Observation. Preliminary diagnosis are Chest pain, unspecified, Angina pectoris, Essential (primary) hypertension. - Bed requested for Telemetry/MedSurg (observation). - Status is Observation. mg2 - Condition is Fair. - Problem is new. - Symptoms have improved. Signatures: Dispatcher [employer] EDCO Juanito Ulloa MD MD cha Calderon, Audri, RN RN aa5 Martha Bain RN RN Galileo Keith RN RN ja1 Tiesha Dowling Michele RN RN mg2 Corrections: (The following items were deleted from the chart) 17:09 15:44 Hospitalization Ordered by Katherine Al MD for Observation. Preliminary eb diagnosis is Chest pain, unspecified; Angina pectoris; Essential (primary) hypertension. Bed requested for Telemetry/MedSurg (observation). Status is Observation. Condition is Fair. Problem is new. Symptoms have improved. tanna 18:32 17:09 12/18/2019 15:44 Hospitalization Ordered by Katherine Al MD for Observation. ja1 Preliminary diagnosis is Chest pain, unspecified; Angina pectoris; Essential (primary) hypertension. Bed requested for Telemetry/MedSurg (observation). Status is Observation. Condition is Fair. Problem is new. Symptoms have improved. eb 21:03 18:32 12/18/2019 15:44 Hospitalization Ordered by Katherine Al MD for Observation. mg2 Preliminary diagnosis is Chest pain, unspecified; Angina pectoris; Essential (primary) hypertension. Bed requested for Telemetry/MedSurg (observation). Status is Observation. Condition is Fair. Problem is new. Symptoms have improved. ja1
--- NOTE | 2019-12-18 15:45 | ER ---
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 Coronavirus screen: Proceed with normal triage. Ebola Screen: No symptoms or risks identified at this time. Initial Sepsis Screen: Does the patient meet any 2 criteria? No. Patient's initial sepsis screen is negative. Does the patient have a suspected source of infection? No. Patient's initial sepsis screen is negative. Risk Assessment: Do you want to hurt yourself or someone else? Patient reports no desire to harm self or others. Onset of symptoms was December 18, 2019. 14:47 Method Of Arrival: Ambulatory hb 14:47 Acuity: JOHN 3 hb Triage Assessment: 15:00 General: Appears in no apparent distress. comfortable, Behavior is calm, cooperative. ls4 15:00 Pain: Complains of pain in chest Pain currently is 6 out of 10 on a pain scale. Neuro: ls4 No deficits noted. Cardiovascular: Reports chest pain. Respiratory: Airway is patent Respiratory effort is even, unlabored, Respiratory pattern is regular, Denies cough, shortness of breath labored breathing. GI: No deficits noted. No signs and/or symptoms were reported involving the gastrointestinal system. : No deficits noted. No signs and/or symptoms were reported regarding the genitourinary system. Historical: - Allergies: 14:50 Codeine; hb 14:50 Talwin; hb 14:50 Toradol; hb - Home Meds: 14:50 amlodipine 5 mg tab 1 tab once daily [Active]; Flexeril Oral [Active]; hb hydrocodone-acetaminophen 7.5-325 mg Oral tab 1 tab every 4 hours [Active]; metoprolol tartrate 50 mg Oral tab 1 tab once daily [Active]; prochlorperazine maleate Oral [Active]; Zofran Oral [Active]; lisinopril 20 mg Oral tab 1 tab once daily [Active]; - PMHx: 14:50 CHRONIC LOW BACK PAIN; breast cancer; Diabetes - NIDDM; Hypertension; hb - PSHx: 14:50 Mastectomy, Right; hb - Immunization history:: Adult Immunizations up to date. - Social history:: Smoking status: Patient denies any tobacco usage or history of. - Family history:: not pertinent. Screenin:13 Abuse screen: Denies threats or abuse. Denies injuries from another. Nutritional ls4 screening: No deficits noted. Tuberculosis screening: No symptoms or risk factors identified. Fall Risk None identified. Assessment: 16:03 Pain: Pain does not radiate. Pain began gradually. Cardiovascular: Reports shortness of ls4 breath, Denies chest pain. 17:00 Reassessment: Patient appears in no apparent distress at this time. Patient and/or ls4 family updated on plan of care and expected duration. Pain level reassessed. Patient is alert, oriented x 3, equal unlabored respirations, skin warm/dry/pink. 18:00 Reassessment: Patient appears in no apparent distress at this time. Patient and/or ls4 family updated on plan of care and expected duration. Pain level reassessed. Patient is alert, oriented x 3, equal unlabored respirations, skin warm/dry/pink. 18:00 Respiratory: Denies cough, shortness of breath labored breathing. Derm: No deficits ls4 noted. No signs and/or symptoms reported regarding the dermatologic system. Vital Signs: 14:47 BP 153 / 72; Pulse 96; Resp 16; Temp 97.9; Pulse Ox 100% on R/A; Weight 68.04 kg; hb Height 5 ft. 2 in. (157.48 cm); Pain 6/10; 20:30 BP 107 / 80; Pulse 82; Resp 18; Temp 97.9; Pulse Ox 100% on R/A; mg2 14:47 Body Mass Index 27.44 (68.04 kg, 157.48 cm) hb ED Course: 14:38 Patient arrived in ED. as 14:49 Triage completed. hb 14:50 Arm band placed on. hb 14:54 Juanito Ulloa MD is Attending Physician. tanna 15:23 Masood Leach, PRABHU is Primary Nurse. bp 15:43 XRAY Chest (1 view) In Process Unspecified. EDMS 15:43 Katherine Al MD is Hospitalizing Provider. tanna 15:50 Initial lab(s) drawn, by ga, sent to lab. Inserted saline lock: 22 gauge in left aa5 antecubital area, using aseptic technique. Blood collected. 15:54 No apparent distress. ls4 15:54 environmental monitoring technician on. Pulse ox on. NIBP on. ls4 15:54 Patient has correct armband on for positive identification. Bed in low position. Call ls4 light in reach. Side rails up X 1. 19:13 No provider procedures requiring assistance completed. Patient maintains SpO2 ls4 saturation greater than 95% on room air. 21:00 Patient admitted, IV remains in place. mg2 Administered Medications: 15:37 Drug: Lopressor 25 mg Route: PO; aa5 15:37 Drug: Aspirin Chewable Tablet 324 mg Route: PO; aa5 15:52 Drug: NS 0.9% 1000 ml Route: IV; Rate: 125 ml/hr; Site: left antecubital; aa5 15:52 Drug: Pepcid 20 mg Route: IVP; Site: left antecubital; aa5 15:52 Drug: Lovenox 1 mg/kg Route: Sub-Q; Site: right lower abdomen; aa5 Outcome: 15:44 Decision to Hospitalize by Provider. [facility] 21:00 Admitted to Med/surg accompanied by tech, via wheelchair, room 215, with chart, Report mg2 called to PRABHU Chou 21:00 Instructed on the need for admit, Demonstrated understanding of instructions. 21:00 Condition: stable mg2 21:03 Patient left the ED. mg2 Signatures: Dispatcher [employer] EDMS Juanito Ulloa MD MD cha Martinez, Amelia as Calderon, Audri, RN RN aa5 Martha Bain RN RN Masood Leach RN RN bp George Lawson RN RN mg2 [facility] RN RN ls4 Corrections: (The following items were deleted from the chart) 21:19 21:14 Condition: stable mg2 mg2
[2019-12-18] MEDS ORDERED: NA CHLORIDE 0.9% 1,000 ML ONE (15:50)
--- NOTE | 2019-12-18 15:50 | RAD REPORT ---
EXAM DESCRIPTION: Kelle Single View12/18/2019 3:42 pm CLINICAL HISTORY: Chest pain COMPARISON: 06/2019 FINDINGS: The lungs appear clear of acute infiltrate. The heart is mildly enlarged IMPRESSION: No acute abnormalities displayed
[2019-12-18 16:08] LABS: Absolute Lymphocytes (CBC) 1.9 K/uL (0.7-4.9); Basophils % 0.7 % (0-1.3); Hematocrit 36.5 % (36.0-45.0); Lymphocytes % 23.4 % (15.3-44.8); MPV 7.6 fL (7.6-11.3); RBC Red Blood Cell Count 4.53 M/uL (3.86-4.86)
[2019-12-18 16:30] LABS: ALT/SGPT 39 U/L (12-78); AST/SGOT 78 U/L (15-37); Albumin 3.4 g/dL (3.4-5.0); Alkaline Phosphatase 142 U/L (45-117); BUN Blood Urea Nitrogen 12 mg/dL (7-18); Bicarbonate 27 mmol/L (21-32); Bilirubin Direct 0.2 mg/dL (0-0.2); Bilirubin Total 0.7 mg/dL (0.2-1.0); Glucose Level 137 mg/dL (74-106); Lipase 34 U/L (73-393); NT PRO-BNP 88 pg/mL (<125); Potassium 3.9 mmol/L (3.5-5.1); Sodium Level 140 mmol/L (136-145); Troponin (Emerg Dept Use Only) < 0.02 ng/mL (0.0-0.045)
[2019-12-18 18:24] LABS: Urine Blood NEGATIVE (NEG); Urine Glucose NEGATIVE (NEG); Urine Protein NEGATIVE (NEG); Urine Specific Gravity 1.025 (1.005-1.030); Urine pH 5.5 (5.0-7.0)
[2019-12-18] MEDS ORDERED: ONDANSETRON 4 MG/2 ML VIAL IV PRN (21:19)
[2019-12-18] MEDS ORDERED: ACETAMINOPHEN 325 MG TABLET PO PRN (21:27)
[2019-12-18 22:06] VITALS: BMI 28.0
[2019-12-18] MEDS: FAMOTIDINE 20 MG/2 ML VIAL IV SCH (23:05)
[2019-12-18] MEDS: METOPROLOL TAR 50 MG TAB PO SCH (23:05)
[2019-12-19] MEDS: MORPHINE 4 MG/ML SYR IV PRN ×2 (00:06→08:18)
[2019-12-19] MEDS: ENOXAPARIN 80 MG/0.8 ML SQ SCH ×2 (04:08→16:40)
[2019-12-19 05:59] LABS: Basophils % 1.2 % (0-1.3); Hematocrit 37.6 % (36.0-45.0); Lymphocytes % 21.8 % (15.3-44.8); MPV 7.8 fL (7.6-11.3); RBC Red Blood Cell Count 4.73 M/uL (3.86-4.86)
[2019-12-19] MEDS: FAMOTIDINE 20 MG/2 ML VIAL IV SCH ×2 (08:18→20:44)
[2019-12-19] MEDS: METOPROLOL TAR 50 MG TAB PO SCH (08:19)
[2019-12-19] MEDS: ASPIRIN EC 81 MG TAB PO SCH (08:19)
[2019-12-19] MEDS: lisinopriL 20 MG TAB PO SCH (08:19)
[2019-12-19] MEDS ORDERED: HYDROCODONE/APAP 7.5/325 MG TAB PO PRN (08:55)
[2019-12-19] MEDS: INSULIN GLARGINE 100 UNITS/ML SQ SCH (09:00)
[2019-12-19] MEDS ORDERED: METOPROLOL TAR 50 MG TAB PO SCH ×2 (09:00→21:00)
[2019-12-19] MEDS ORDERED: lisinopriL 20 MG TAB PO SCH (09:00)
[2019-12-19] MEDS ORDERED: MORPHINE 2 MG/ML SYR IV PRN (09:13)
[2019-12-19] MEDS: CYCLOBENZAPRINE 10 MG TAB PO SCH ×2 (09:25→20:43)
[2019-12-19] MEDS: PREGABALIN 150 MG CAP PO SCH ×3 (09:25→20:43)
[2019-12-19] MEDS: PREGABALIN 50 MG CAP PO SCH ×3 (09:25→20:43)
[2019-12-19] MEDS: AMLODIPINE 5 MG TAB PO SCH (09:26)
--- NOTE | 2019-12-19 13:24 | CON ---
Date of Consultation: 12/19/2019 Reason For Consultation: Chest pain. History Of Present Illness: This is a 69-year-old female, brought into the emergency room yesterday due to chest pain. She was in her bed. Pain was sharp, retrosternal, no radiation, lasted about 10 to 15 minutes. She became nauseated and vomited once. Pain completely resolved. She declines havin g any chest pain on exertional reactivity. During hospitalization, she had no further chest pain at all, comfortable in her bed. Past Medical History: Hypertension, diabetes. Medications: Refer to reconciliation sheet for detailed list. Allergies: SHE IS ALLERGIC TO . Social History: Does not smoke or drink. Does not use any drugs. Family History: No mention of coronary artery disease or cancer. Review of Systems: All systems reviewed and were negative except for mentioned in the HPI. Physical Examination: Vital Signs: Temperature is 98.4, pulse is 82, breathing at 18, blood pressure is 140/73, saturating 96% on room air. General: Pleasant, elderly female, in no apparent distress. HEENT: Pupils are equal, react to light. Intact eye movements. No JVD. No cervical lymphadenopath y. Neck: Supple. Thyroid is not enlarged. Lungs: Clear to auscultation bilaterally. No rhonchi, rales, or crackles. No accessory muscle use. Heart: Regular rate and rhythm. No extra sounds. Abdomen: Soft, nontender. Bowel sounds positive. No organomegaly. No masses or hernia. No rigidi ty or rebound. Extremities: No edema, clubbing, cyanosis. Intact pulses. Skin: No rash. Neurologic: Alert, awake, oriented x3. No acute focal deficits appreciated. Investigations: Cardiac enzymes, troponins x3 are negative. Creatinine 0.78. White blood cell coun t is 9.1, hemoglobin 12.5. EKG without specific ST abnormalities. Assessment And Recommendation: 1.Chest pain atypical. Troponins are negative. Obtain echo. If this is normal and given the fact that the patient is chest pain-free, she can be released and have a followup as outpatient for stress test and echocardiogram. Started on aspirin 81 mg. 2.Hypertension. Blood pressure is acceptable. Continue current medications. Thank you for this consultation. /STEPHEN Voice ID: [id number] Report ID: [id number]
[2019-12-19] MEDS ORDERED: ATORVASTATIN 10 MG TAB PO SCH (21:00)
[2019-12-19] MEDS ORDERED: HOME MED 1 EA UNK (Simvastatin [Zocor*] 20 MG) PO SCH (21:00)
--- NOTE | 2019-12-20 00:15 | HP ---
Date of Admission: 12/18/2019 History Of Present Illness: A 69-year-old female with multiple medical problems, presented to the em ergency room with a complaint of chest pain substernal, described as being pressure-like. That happe tierney all of a sudden, had no relation to activity. Stayed with her for about an hour. By the time molly motley came to emergency room, that pain had subsided. Because of her high risk for coronary artery disea se, we will put the patient for observation and Cardiology was consulted. Review of Systems: Cardiovascular: The patient had no palpitation. No dizziness. Respiratory: Chest pressure, but no real shortness of breath. No cough and no other complaints. Gastrointestinal: No complaints. Genitourinary: No complaints. Skeletomuscular: The patient has chronic osteoarthritic joint pains, back pains. Neurological: No complaint. Past Medical History: 1.Hypertension. 2.Hyperlipidemia. 3.Type 2 diabetes mellitus. 4.Polyosteoarthritis. Social History: No smoking, alcohol, or drug abuse history. Family History: Noncontributing. Medications: Include amlodipine 5 mg p.o. daily, Lyrica 400 mg p.o. t.i.d., 10 mg p.o. b. i.d., hydrocodone and acetaminophen 7.5/325 one p.o. q.i.d. p.r.n., Basaglar 50 units subcutaneous da pete, lisinopril 20 mg p.o. daily, metoprolol 50 mg p.o. daily, and simvastatin 20 mg p.o. daily. Allergies: INCLUDE PENTAZOCINE, LACTATE, CODEINE, AND KETOROLAC TROMETHAMINE. Physical Examination: Vital Signs: Blood pressure 140/75, pulse 79, temperature 96.9. Heart: Regular rate and rhythm. Chest: Clear to auscultation. Abdomen: Soft, benign, nontender, nondistended. Bowel sounds are normoactive. Extremities: No edema. No cyanosis. Peripheral pulses are felt. Neurologic: Alert, oriented, nonfocal. Grossly intact. Room air pulse oximetry is 99%. Diagnostic Data: Chest x-ray, no acute pathology. CBC nonrevealing. Chemistry nonrevealing. Blood sugar fingersticks noted. Troponin was less than 0.02. Assessment And Plan: Chest pain in the precordial area in a patient with high risk for coronary rios ry disease. Cardiology was consulted. They are planning to do stress test on the patient, and myrtle medrano on that result, will act accordingly. Meanwhile, we will continue the patient on her home medic ations. Monitor her blood sugar and put her on regular insulin sliding scale. Look orders for fernando GARCIA/MODL Voice ID: [id number]
[2019-12-20] MEDS: ENOXAPARIN 80 MG/0.8 ML SQ SCH (04:16)
[2019-12-20] MEDS ORDERED: D50W 25 GM/50 ML SYRINGE/VIAL IV PRN (07:28)
[2019-12-20] MEDS ORDERED: GLUCAGON 1 MG/VIAL IM PRN (07:28)
[2019-12-20] MEDS ORDERED: INSULIN -REGULAR HUMAN 50 UNIT/0.5 ML ML SQ SCH (07:30)
--- NOTE | 2019-12-20 08:24 | ECHO ---
HEIGHT: 5 ft 2 in WEIGHT: 153 lb 9.6 oz DATE OF STUDY: 12/19/[address]: Renzo Gottlieb 2-DIMENSIONAL: YES M.MODE: YES DOPPLER: YES COLOR FLOW: YES TDS: NO PORTABLE: NO DEFINITY: NO BUBBLE STUDY: NO DIAGNOSIS: CHEST PAIN CARDIAC HISTORY: CATHERIZATION: NO SURGERY: NO PROSTHETIC VALVE: NO PACEMAKER: NO MEASUREMENTS (cm) DIASTOLIC (NORMALS) SYSTOLIC (NORMALS) IVSd 1.0 (0.6-1.2) LA Diam 2.7 (1.9-4.0) LVEF 61% LVIDd 4.4 (3.5-5.7) LVIDs 3.0 (2.0-3.5) %FS 33% LVPWd 1.1 (0.6-1.2) Ao Diam 2.5 (2.0-3.7) 2 DIMENSIONAL ASSESSMENT: RIGHT ATRIUM: NORMAL LEFT ATRIUM: NORMAL RIGHT VENTRICLE: NORMAL LEFT VENTRICLE: NORMAL TRICUSPID VALVE: NORMAL MITRAL VALVE: NORMAL PULMONIC VALVE: NORMAL AORTIC VALVE: NORMAL PERICARDIAL EFFUSION: NONE AORTIC ROOT: NORMAL LEFT VENTRICULAR WALL MOTION: NORMAL DOPPLER/COLOR FLOW: NORMAL COMMENTS: NORMAL LEFT VENTRICULAR EJECTION FRACTION 55-60%. NORMAL WALL MOTION. NORMAL STUDY. TECHNOLOGIST: Edda BASSETT
[2019-12-20 08:38] VITALS: BP 128/70; TEMP 96.7
[2019-12-20] MEDS: lisinopriL 20 MG TAB PO SCH (09:35)
[2019-12-20] MEDS: CYCLOBENZAPRINE 10 MG TAB PO SCH (09:35)
[2019-12-20] MEDS: ASPIRIN EC 81 MG TAB PO SCH (09:35)
[2019-12-20] MEDS: PREGABALIN 50 MG CAP PO SCH (09:35)
[2019-12-20] MEDS: PREGABALIN 150 MG CAP PO SCH (09:36)
[2019-12-20] MEDS: AMLODIPINE 5 MG TAB PO SCH (09:36)
[2019-12-20] MEDS: FAMOTIDINE 20 MG/2 ML VIAL IV SCH (09:37)
[2019-12-20] MEDS: INSULIN GLARGINE 100 UNITS/ML SQ SCH (09:37)
[2019-12-20 10:43] VITALS: O2SAT 95
== END 2019-12-20 11:38 | disposition home or self-care (01) ==
LOC: ER 14:37 → ERHOLD 15:48 → 2ND 20:23
PROVIDERS: ADMIT Internal Medicine; ATTEND Internal Medicine
DX: R07.89 Other chest pain (principal); I10 Essential (primary) hypertension; E78.5 Hyperlipidemia, unspecified; E11.9 Type 2 diabetes mellitus without complications; M15.9 Polyosteoarthritis, unspecified; R06.02 Shortness of breath; Z20.828 Contact with and (suspected) exposure to other viral communicable diseases; Z79.4 Long term (current) use of insulin; Z79.899 Other long term (current) drug therapy; Z85.3 Personal history of malignant neoplasm of breast; Z90.11 Acquired absence of right breast and nipple
CPT/HCPCS: 93005; 93306; 85025 ×2; 80048 ×2; 36415; 83735; 82947 ×6; 80076; 81003; 84484 ×3; 83690; 83880; 71045; 96372; 96374; 99285; U0002; J7030; G0378 ×4; J1815

== ENCOUNTER 2019-12-26 15:41 | Emergency (ER) | payer OTHER ==
--- OUTSIDE RECORDS SUMMARY | 2019-12-26 15:48 | XMS REPORT | Continuity of Care Document ---
:1950 Author Organization [facility] t Address [address] [place] [address] Care Team Providers Name Role Phone Renzo KELSEY Primary Care Physician Ede TELLO, S Attending Clinician Doctor Unassigned, Name Attending Clinician Unavailable Raegan KELSEY Attending Clinician Renzo KELSEY Attending Clinician Rico MENDOZA Attending Clinician Baldomero RN, L Attending Clinician Umair SAENZ Attending Clinician Rosana SAENZ Attending Clinician Payers Payer Name Policy Type Policy Effective Date Expiration Date Sour ce Number AETNA MEDICAREAETNA [id number] 2019 MD Ulloa MEDICARE 00:00:00 [id number]/ 2020-PresentMedicar e Problems Condition Condition Condition Status Onset [...] Managed And erso by Dr. lelo Aguilar, [place] Allergies, Adverse Reactions, Alerts Allergy Allergy Status [...] Date Stop Date Quantity Comments Source History SDIL [facility] History SDOH [facility] - Alcohol Binge Medical Stefan ter Sex Assigned At MD Dorman on History [facility] 2018-09-01 2018-09-[address] [facility] - [...] 20 18:14: n mg tablet 52 amLODIPine Yes 5mg Take 5 mg (NORVASC) 5 [...] 00 bedtime. tablet BASAGLAR Yes INJECT 20 KWIKROEL 6-20 UNITS Anderso U-100 00:00: SUBCUTANEO n [...] daily . Medi alexandro MG tablet 11 [place] meloxicam Yes 15mg QD Take [address] (MOBIC) 15 4-10 by mouth [facility] - MG tablet 10:36: daily. Medica l 45 [place] metFORMIN Yes 750mg Q.5D Take [address] [facility] [address] (GLUCOPHAGE 4-10 mg by [facility] - -XR) 750 MG 10:36: mouth 2 Med ical 24 hr 45 (two) Center tablet times daily. metoprolol Yes 50mg QD Take [address] (TOPROL-XL) 4-10 by mouth Luke s - 50 MG 24 hr 10:36: nightly. Me dical tablet 45 [place] zolpidem Yes 10mg Take 10 mg [facility] [...] MG tablet 10:36: daily. Medica l 44 [place] cyclobenzap 0 Yes 10mg Take [address] [address] rine 4-10 by mouth 3 [facility] - (FLEXERIL) 10:36: (three) Medi alexandro 10 MG 44 times Center tablet daily as needed for Muscle spasms. gabapentin Yes 300mg Q.5D Take [address] (NEURONTIN) 4-10 mg by [facility] - 300 MG 10:36: mouth 2 Medical capsule 44 (two) Center times daily. HYDROcodone Yes 1{tbl} Take [address] -acetaminop 4-10 tablet by Cody es - abhi (NORCO 10:36: mouth Medica l 7.5-325) 44 [...] No Infiltratin 10mg Take 1 MD azine 4-01 02-07 g duct tablet (10 Bruce so (COMPAZINE) 00:00: 00:00 carcinoma mg) by n 10 mg 00 :00 of upper mouth tablet inner every 6 quadrant of (six) right hours as female needed for breast nausea or vomiting. hydrOXYzine 2018- No Infiltratin 25mg Take 12.5 MD HCl 3-18 09-25 g duct mL (25 mg) Dandy o (ATARAX) 10 00:00: 00:00 carcinoma by mouth 4 n mg/5 mL 00 :00 of upper (four) syrup inner times a quadrant of day as right needed for female itching. breast gabapentin Yes 3 (three) MD (NEURONTIN) 3-06 times a Bruce so 300 mg 00:00: day. n capsule 00 HYDROcodone Yes TAKE 1 MD -acetaminop 6-20 TABLET BY And chalino moe (NORCO) 00:00: MOUTH 4 n 7.5 mg-325 00 TIMES mg per DAILY MAY tablet MAKE DROWSY meloxicam Yes TAKE 1 MD (MOBIC) 15 6-20 TABLET BY Darin rso mg tablet 00:00: MOUTH WITH n 00 FOOD ONCE DAILY DO NOT TAKE ASPIRIN cyclobenzap Yes TAKE 1 MD farrell 6-20 TABLET BY Heidi (FLEXERIL) 00:00: MOUTH 2 n 10 mg 00 TIMES tablet DAILY NEEDED MAY MAKE DROWSY ibuprofen 2016-0 2019- No 600mg 600 mg. (ADVIL,MOTR 9-14 01-25 Anderso IN) 600 mg 00:00: 00:00 n [...] Procedure Date / Time Performed Performing Clinician [facility] e SURGICAL BIOPSY HISTORIC 2019-07-06 18:00:00 Conversion, Patholo sydney Ulloa MAMMO DIGITAL DIAGNOSTIC 2019-07-06 15:49:33 Stephanie Gómez MD BILATERAL W EDGAR PATHOLOGY BIOPSY SPECIMEN 2019-07-06 00:00:00 Peter Carlin INTERPRETATION COMPLETE BLOOD COUNT W/ 2019-03-01 18:19:31 Lori Wayne MD DIFFERENTIAL COMPREHENSIVE METABOLIC PANEL 2019-03-01 18:19:31 Litzy Wayne MD Results CBC 2019-03-01 18:19:31 Lori Wayne MD MANUAL DIFFERENTIAL 2019-03-01 18:19:31 Lori Wayne MD And erson GLUCOSE LEVEL 2019-03-01 18:19:31 Lori Wayne MD BLOOD UREA NITROGEN 2019-03-01 18:19:31 Lori Wayne MD And erson ELECTROLYTE PANEL 2019-03-01 18:19:31 [facility] SERUM CREATININE 2019-03-01 18:19:31 Lori Wayne MD Dandy on .GLOMERULAR FILTRATION RATE 2019-03-01 18:19:31 Glen Wayne CALCIUM LEVEL TOTAL 2019-03-01 18:19:31 Lori Wayne MD And erson ALBUMIN LEVEL 2019-03-01 18:19:31 Lori Wayne MD Andsamo n ALKALINE PHOSPHATASE 2019-03-01 18:19:31 Lori Wayne MD derson ALANINE AMINOTRANSFERASE 2019-03-01 18:19:31 Lori Wayne ASPARTATE AMINOTRANSFERASE 2019-03-01 18:19:31 Lori Wayne MD TOTAL PROTEIN 2019-03-01 18:19:31 Lori Wayne MD Andsamo n FRACTIONATED BILIRUBIN 2019-03-01 18:19:31 Lori Wayne MD COMPLETE BLOOD COUNT W/ 2019-01-25 12:28:40 Amelia Muller MD nderson DIFFERENTIAL COMPREHENSIVE METABOLIC PANEL 2019-01-25 12:28:40 Litzy Wayne MD Results CBC 2019-01-25 12:28:40 Amelia Muller MD MANUAL DIFFERENTIAL 2019-01-25 12:28:40 Amelia Muller MD Bruce son GLUCOSE LEVEL 2019-01-25 12:28:40 Lori Wayne MD BLOOD UREA NITROGEN 2019-01-25 12:28:40 Lori Wayne MD And erson ELECTROLYTE PANEL 2019-01-25 12:28:40 Lori Wayne MD Bruce son SERUM CREATININE 2019-01-25 12:28:40 Lori Wayne MD Dandy on .GLOMERULAR FILTRATION RATE 2019-01-25 12:28:40 Glen Wayne CALCIUM LEVEL TOTAL 2019-01-25 12:28:40 Lori Wayne MD And erson ALBUMIN LEVEL 2019-01-25 12:28:40 Lori Wayne MD ALKALINE PHOSPHATASE 2019-01-25 12:28:40 Lori Wayne MD derson ALANINE AMINOTRANSFERASE 2019-01-25 12:28:40 Lori Wayne ASPARTATE AMINOTRANSFERASE 2019-01-25 12:28:40 Lori Wayne MD TOTAL PROTEIN 2019-01-25 12:28:40 Lori Wayne MD FRACTIONATED BILIRUBIN 2019-01-25 12:28:40 Lori Wayne MD COMPLETE BLOOD COUNT W/ 2019-01-04 12:52:23 Lori Wayne MD DIFFERENTIAL ASPARTATE AMINOTRANSFERASE 2019-01-04 12:52:23 Lori Wayne MD ALANINE AMINOTRANSFERASE 2019-01-04 12:52:23 Lori Wayne ALKALINE PHOSPHATASE 2019-01-04 12:52:23 Lori Wayne MD An derson BILIRUBIN TOTAL 2019-01-04 12:52:23 Lori Wayne MD HEMOGLOBIN A1C 2019-01-04 12:52:23 Lori Wayne MD Results CBC 2019-01-04 12:52:23 Lori Wayne MD MANUAL DIFFERENTIAL 2019-01-04 12:52:23 Lori Wayne MD And gaurav Encounters Start End Encounter Admission Attending Care Care Encounter Source Date/Time Date/Time Type Type Clinicians Facility Department ID 2019-07-19 2019-07-19 Emergency Russell, [facility] [id number] 11:46:40 13:39:00 Sanjuanita Oneal [id number] [place] [id number] [place] [id number] 2019-07-19 2019-07-19 Orders Doctor CHARL[place]TE [id number] 00:00:00 00:00:00 Only Unassigned, KAREN [id number] [place] [facility] [id number] Results Test Description Test Time Test Comments Results Result [facility] e Comments Mammography 2019-06-25 There is no MD Ulloa Digital 2 mammographic evidence Diagnostic 16:05:36 of malignancy. [...] been compared to prior imaging studies performed ata outside location on 07/15/2011, 08/13/2016 and 09/29/2017, and at [facility] on 07/15/2018, 12/07/2018 and 02/16/2019. FINDINGS:There are scattered areas of fibroglandular density. 1: There is an oval mass with associated skin thickening and surgical clips inthe right breast inner hemisphere at 3 o'clock. This finding is consistent withpost surgical/radiation change with seroma. The patient is status postsegmentectomy with radiation for a weakly ER+, NV-, HER2 - right 3o'clockmalignancy in July 2018. [...] PATIENT VIEW, NON DEPT 1 Exam:->C50.21 ID: [id number] 14:32:00 1 Clinical History: C50.211 Comparison Study: None Findings: The heart and lungs are within normal limits. A left-sided Port-A-Cath is in place, the tip projecting over the SVC The pleural spaces are clear. Surgical clips project over the right thorax. Degenerative changes are noted. Impression: No active cardiopulmonary disease. Signed: Ramesh Choi [facility] Verified Date/Time: 09/02/2018 14:32:25 Reading Location: [facility] B1 C013W Consult Reading Room , TUNNEL CATH 2018-08-23 Reason for FINAL REPORT PATIENT CENTRAL INS 1 Exam:->C50.21 ID: [id number] LEFT W/PORT C 14:06:00 1 INTERNAL JUGULAR CHEST PORT INSERTION, UNDER FLUOROSCOPY. History: Right breast cancer. Port catheter needed for chemotherapy.. Modality: Sonography and fluoroscopy. Sedation: Versed two mg and fentanyl 125 mcg given intravenously for conscious sedation. Vital signs were monitored throughout the procedure by a nurse, and remained stable. Physician intra-service time was 30 minutes. Industrial Education Teacher: Steff Approach: Left internal jugular vein Fluoroscopy [...] needle into the right atrium. A 4 Serbian micropuncture sheath was placed. A subcutaneous tunnel [...] MDReport Verified Date/Time: 09/02/2018 14:06:01 Reading Location: [facility] Radiology Reading Room
--- OUTSIDE RECORDS SUMMARY | 2019-12-26 15:48 | XMS REPORT | Clinical Summary ---
:1950 Author Organization [facility] Address [address] [place] [id number] Care Team Providers Name Role Phone MD [...] Not on file Implants Implanted Type Area Health Safety Engineer Device Shelf Model / Identifier Expiration Serial / Date Lot Power Port Left: BARD ACCESS 02/22/2020 [id number] / Implanted: Qty: 1 on 09/02/2018 Chest SYSTEMS / [id number] Results Not on fileafter 12/25/2018 Insurance Payer Benefit Plan / Subscriber ID Type Phone Address Group AETNA - AETNA MEDICARE xxxxxxxx Maps Contracted [phone] [address] MEDICARE MGD HMO POS [id number] [place] [address] ([address]) [address] [place] [id number]
--- NOTE | 2019-12-26 18:14 | ER ---
Nurse's Notes [facility] Name: Soledad Cortes Age: 69 yrs Sex: Female : 1950 Arrival Date: 12/26/2019 Time: 15:43 Bed 12 Private MD: Diagnosis: Insect bite (nonvenomous), right foot Presentation: 12/25 16:19 Chief complaint: Patient states: Stepped on a wasp at 1500 today. Reports pain and ca1 swelling on R foot radiating to R ankle. Coronavirus screen: Client denies travel out of the [place] in the last 14 days. At this time, the client does not indicate any symptoms associated with coronavirus-19. Ebola Screen: Patient negative for fever greater than or equal to 101.5 degrees Fahrenheit, and additional compatible Ebola Virus Disease symptoms Patient denies exposure to infectious person. Patient denies travel to an Ebola-affected area in the 21 days before illness onset. No symptoms or risks identified at this time. Initial Sepsis Screen: Does the patient meet any 2 criteria? No. Patient's initial sepsis screen is negative. Does the patient have a suspected source of infection? No. Patient's initial sepsis screen is negative. Risk Assessment: Do you want to hurt yourself or someone else? Patient reports no desire to harm self or others. Onset of symptoms was December 26, 2019. 16:19 Method Of Arrival: Ambulatory ca1 16:19 Acuity: JOHN 4 ca1 17:20 Anaphylaxis evaluation, no signs or symptoms of anaphylaxis were noted. iw 17:20 Onset: The symptoms/episode began/occurred 3 hour(s) ago. iw Historical: - Allergies: 16:22 Codeine; ca1 16:22 Talwin; ca1 16:22 Toradol; ca1 - Home Meds: 16:22 amlodipine 5 mg tab 1 tab once daily [Active]; Flexeril Oral [Active]; ca1 hydrocodone-acetaminophen 7.5-325 mg Oral tab 1 tab every 4 hours [Active]; lisinopril 20 mg Oral tab 1 tab once daily [Active]; metoprolol tartrate 50 mg Oral tab 1 tab once daily [Active]; prochlorperazine maleate Oral [Active]; Zofran Oral [Active]; - PMHx: 16:22 breast cancer; CHRONIC LOW BACK PAIN; Diabetes - NIDDM; Hypertension; ca1 - PSHx: 16:22 Mastectomy, Right; ca1 - Immunization history:: Adult Immunizations up to date. - Social history:: Smoking status: Patient denies any tobacco usage or history of. Screenin:16 Abuse screen: Denies threats or abuse. Denies injuries from another. Nutritional iw screening: No deficits noted. Tuberculosis screening: No symptoms or risk factors identified. Fall Risk None identified. Assessment: 17:20 General: Appears in no apparent distress. Behavior is calm, cooperative. Pain: iw Complains of pain in right foot. Neuro: Level of Consciousness is awake, alert, obeys commands, Oriented to person, place, time, situation, Moves all extremities. Respiratory: Airway is patent Respiratory effort is even, unlabored. 17:20 Respiratory: Breath sounds are clear. iw 18:28 Reassessment: Pt up for discharge but is waiting to have her xray done and to be sv resulted. Vital Signs: 16:19 BP 130 / 83; Pulse 115; Resp 19 S; Temp 98.8(O); Pulse Ox 100% on R/A; Weight 68.04 kg ca1 (R); Height 5 ft. 2 in. (157.48 cm); 16:19 Body Mass Index 27.44 (68.04 kg, 157.48 cm) ca1 ED Course: 15:43 Patient arrived in ED. as 16:21 Triage completed. ca1 16:22 Arm band placed on right wrist. ca1 17:14 Kritsyn King, RN is Primary Nurse. iw 17:20 Patient has correct armband on for positive identification. iw 17:23 Juanito Ulloa MD is Attending Physician. tanna 18:12 Doc Orozco MD is Referral Physician. tanna 18:28 Awaiting for x-ray. sv 18:37 Foot Right 3 View XRAY In Process Unspecified. EDMS 19:43 No provider procedures requiring assistance completed. Patient did not have IV access iw during this emergency room visit. Administered Medications: 18:27 Not Given (unavailable in pharmacy): Pepcid 40 mg PO once sv 18:27 Drug: predniSONE 40 mg Route: PO; sv 19:00 Follow up: Response: No adverse reaction iw 18:27 Drug: KeFLEX 500 mg Route: PO; sv 19:00 Follow up: Response: No adverse reaction iw Outcome: 18:13 Discharge ordered by MD. cisse 19:43 Discharged to home ambulatory. iw 19:43 Condition: good 19:43 Discharge instructions given to patient. 19:44 Patient left the ED. iw Signatures: Dispatcher [employer] Roxie Floyd, RN Juanito Song MD MD cha Martinez, Amelia as Williams, Irene, RN RN iw Sunshine Cain RN RN ca1
--- NOTE | 2019-12-26 18:14 | EDPHYS ---
Physician Documentation [facility] Name: Soledad Cortes Age: 69 yrs Sex: Female : 1950 Arrival Date: 12/26/2019 Time: 15:43 Bed 12 Private MD: MOHIT Physician Juanito Ulloa HPI: 12/25 18:08 This 69 yrs old Black Female presents to ER via Ambulatory with complaints of Bee Sting tanna - allergic reaction. 18:08 The patient presents with a bite, by an insect, pain. The complaints affect the right tanna foot, right foot. Context: The problem was sustained at home, resulted from the patient stepping on bee. Onset: The symptoms/episode began/occurred just prior to arrival. Modifying factors: The symptoms are alleviated by elevation of extremity, the symptoms are aggravated by weight bearing, movement. Associated signs and symptoms: The patient has no apparent associated signs or symptoms. Severity of symptoms: At their worst the symptoms were. The patient has not experienced similar symptoms in the past. Historical: - Allergies: 16:22 Codeine; ca1 16:22 Talwin; ca1 16:22 Toradol; ca1 - Home Meds: 16:22 amlodipine 5 mg tab 1 tab once daily [Active]; Flexeril Oral [Active]; ca1 hydrocodone-acetaminophen 7.5-325 mg Oral tab 1 tab every 4 hours [Active]; lisinopril 20 mg Oral tab 1 tab once daily [Active]; metoprolol tartrate 50 mg Oral tab 1 tab once daily [Active]; prochlorperazine maleate Oral [Active]; Zofran Oral [Active]; - PMHx: 16:22 breast cancer; CHRONIC LOW BACK PAIN; Diabetes - NIDDM; Hypertension; ca1 - PSHx: 16:22 Mastectomy, Right; ca1 - Immunization history:: Adult Immunizations up to date. - Social history:: Smoking status: Patient denies any tobacco usage or history of. ROS: 18:09 Constitutional: Negative for fever, chills, and weight loss, Eyes: Negative for injury, tanna pain, redness, and discharge, ENT: Negative for injury, pain, and discharge, Neck: Negative for injury, pain, and swelling, Cardiovascular: Negative for chest pain, palpitations, and edema, Respiratory: Negative for shortness of breath, cough, wheezing, and pleuritic chest pain, Abdomen/GI: Negative for abdominal pain, nausea, vomiting, diarrhea, and constipation, Back: Negative for injury and pain, : Negative for injury, bleeding, discharge, and swelling, Neuro: Negative for headache, weakness, numbness, tingling, and seizure, Psych: Negative for depression, anxiety, suicide ideation, homicidal ideation, and hallucinations, Allergy/Immunology: Negative for hives, rash, and allergies, Endocrine: Negative for neck swelling, polydipsia, polyuria, polyphagia, and marked weight changes, Hematologic/Lymphatic: Negative for swollen nodes, abnormal bleeding, and unusual bruising. 18:09 MS/extremity: Positive for erythema, pain, swelling, tenderness, of the right foot. Exam: 18:09 Constitutional: This is a well developed, well nourished patient who is awake, alert, tanna and in no acute distress. Head/Face: Normocephalic, atraumatic. Eyes: Pupils equal round and reactive to light, extra-ocular motions intact. Lids and lashes normal. Conjunctiva and sclera are non-icteric and not injected. Cornea within normal limits. Periorbital areas with no swelling, redness, or edema. ENT: Nares patent. No nasal discharge, no septal abnormalities noted. Tympanic membranes are normal and external auditory canals are clear. Oropharynx with no redness, swelling, or masses, exudates, or evidence of obstruction, uvula midline. Mucous membranes moist. Neck: Trachea midline, no thyromegaly or masses palpated, and no cervical lymphadenopathy. Supple, full range of motion without nuchal rigidity, or vertebral point tenderness. No Meningismus. Chest/axilla: Normal chest wall appearance and motion. Nontender with no deformity. No lesions are appreciated. Cardiovascular: Regular rate and rhythm with a normal S1 and S2. No gallops, murmurs, or rubs. Normal PMI, no JVD. No pulse deficits. Respiratory: Lungs have equal breath sounds bilaterally, clear to auscultation and percussion. No rales, rhonchi or wheezes noted. No increased work of breathing, no retractions or nasal flaring. Abdomen/GI: Soft, non-tender, with normal bowel sounds. No distension or tympany. No guarding or rebound. No evidence of tenderness throughout. Back: No spinal tenderness. No costovertebral tenderness. Full range of motion. Neuro: Awake and alert, GCS 15, oriented to person, place, time, and situation. Cranial nerves II-XII grossly intact. Motor strength 5/5 in all extremities. Sensory grossly intact. Cerebellar exam normal. Normal gait. Psych: Awake, alert, with orientation to person, place and time. Behavior, mood, and affect are within normal limits. 18:09 Skin: induration, that is mild is noted, injury, puncture(s), that are superficial, of the ball of right foot. Vital Signs: 16:19 BP 130 / 83; Pulse 115; Resp 19 S; Temp 98.8(O); Pulse Ox 100% on R/A; Weight 68.04 kg ca1 (R); Height 5 ft. 2 in. (157.48 cm); 16:19 Body Mass Index 27.44 (68.04 kg, 157.48 cm) ca1 MDM: 17:23 Patient medically screened. tanna 18:11 Differential diagnosis: sprain, foreign body, penetrating trauma, cellulitis. Data tanna reviewed: vital signs, nurses notes, radiologic studies, plain films. Data interpreted: manager monitoring: not applicable for this patient encounter. Pulse oximetry: on room air is 100 %. Test interpretation: by ED physician or midlevel provider: plain radiologic studies. Counseling: I had a detailed discussion with the patient and/or guardian regarding: the historical points, exam findings, and any diagnostic results supporting the discharge/admit diagnosis, radiology results, the need for outpatient follow up, for definitive care, a family practitioner. 12/25 18:01 Order name: Foot Right 3 View XRAY tanna Administered Medications: 18:27 Not Given (unavailable in pharmacy): Pepcid 40 mg PO once sv 18:27 Drug: predniSONE 40 mg Route: PO; sv 19:00 Follow up: Response: No adverse reaction iw 18:27 Drug: KeFLEX 500 mg Route: PO; sv 19:00 Follow up: Response: No adverse reaction iw Disposition: 12/26/19 18:13 Discharged to Home. Impression: Insect bite (nonvenomous), right foot. - Condition is Stable. - Discharge Instructions: Insect Bite, [id number], Insect Bite. - Prescriptions for Benadryl 25 mg Oral Capsule - take 1 capsule by ORAL route every 6 hours As needed; 30 tablet. Keflex 500 mg Oral Capsule - take 1 capsule by ORAL route every 6 hours for 7 days; 28 capsule. Pepcid 20 mg Oral Tablet - take 1 tablet by ORAL route every 12 hours for 10 days; 20 tablet. Prednisone 20 mg Oral Tablet - take 2 tablet by ORAL route once daily for 5 days; 10 tablet. EpiPen 0.3 mg Injection auto- injector - inject 1 pen by INTRAMUSCULAR route as directed Inject into the outer portion of the thigh, through clothing if necessary. Indicated in the emergency treatment of allergic reactions; 1 Container. - Medication Reconciliation Form, Thank You Letter, Antibiotic Education, Prescription Opioid Use form. - Follow up: Private Physician; When: 2 - 3 days; Reason: Recheck today's complaints, Continuance of care, Re-evaluation by your physician. Follow up: Doc Orozco MD; When: 2 - 3 days; Reason: Recheck today's complaints, Continuance of care, Re-evaluation by your physician. - Problem is new. - Symptoms have improved. Signatures: Dispatcher [employer] Roxie Floyd RN RN sv Anderson, Corey, MD MD cha Williams, Irene, RN RN iw Payton, PRABHU Gonsalez RN ca1 Corrections: (The following items were deleted from the chart) 19:44 18:13 12/26/2019 18:13 Discharged to Home. Impression: Insect bite (nonvenomous), right iw foot. Condition is Stable. Forms are Medication Reconciliation Form, Thank You Letter, Antibiotic Education, Prescription Opioid Use. Follow up: Private Physician; When: 2 - 3 days; Reason: Recheck today's complaints, Continuance of care, Re-evaluation by your physician. Follow up: Doc Orozco; When: 2 - 3 days; Reason: Recheck today's complaints, Continuance of care, Re-evaluation by your physician. Problem is new. Symptoms have improved. tanna
[2019-12-26] MEDS ORDERED: predniSONE 20 MG TAB ONE (18:27)
[2019-12-26] MEDS ORDERED: CEPHALEXIN 250 MG CAP ONE (18:27)
--- NOTE | 2019-12-26 19:19 | RAD REPORT ---
EXAM DESCRIPTION: RAD - Foot Right 3 View - 12/26/2019 6:37 pm CLINICAL HISTORY: Right foot pain FINDINGS: No fracture or dislocation is seen. Bones appear somewhat osteoporotic. No additional bone or joint abnormality is seen
[2019-12-26 19:50] VITALS: BP 130/83; TEMP 98.8; O2SAT 100
== END 2019-12-26 19:44 | disposition home or self-care (01) ==
LOC: ER 15:41
DX: S90.861A Insect bite (nonvenomous), right foot, initial encounter (principal); I10 Essential (primary) hypertension; E11.9 Type 2 diabetes mellitus without complications; Z85.3 Personal history of malignant neoplasm of breast; Z90.11 Acquired absence of right breast and nipple; Z88.5 Allergy status to narcotic agent; Z88.6 Allergy status to analgesic agent
CPT/HCPCS: 99283; J7512

== ENCOUNTER 2020-11-07 12:44 | Emergency (ER) | payer OTHER ==
--- OUTSIDE RECORDS SUMMARY | 2020-11-07 12:49 | XMS REPORT | Continuity of Care Document ---
:1950 Author Organization [facility] t Address [address] [place] [address] Care Team Providers Name Role Phone JOHNNY Primary Care Physician Unavailable Chip KELSEY Attending Clinician JOHNNY Attending Clinician Unavailable Johnny KELSEY Attending Clinician Renzo KELSEY Attending Clinician Julius TOOL ENGINE LATHE SET UP OPERATOR Attending Clinician RENZO Attending Clinician Unavailable Rico MENDOZA Attending Clinician RICO Attending Clinician Unavailable Charlotte HANSEN Attending Clinician Ellen Saini Attending Clinician Doctor Unassigned, Name Attending Clinician Unavailable Payers Payer Name Policy Type Policy Effective Date Expiration Date Sour ce Number AETNA MEDICAREAETNA [id number] 2019 MD Ulloa MEDICARE 00:00:00 [id number]/ 2020-PresentMedicar e Problems Condition Condition Condition Status [...] Disease Active Overview: drug user drug user Melchor pérez of this n note might be different from the original. Managed by Dr. Cody Aguilar, [place] Allergies, Adverse Reactions, Alerts Allergy Allergy Status Severity Reaction(s) Onset Inactive Treating Comm ents Source Name Type Date Date Clinician Antisept Propensi Active "[facility] - Solution adverse 00:00: Medical reaction 00 Center s Codeine Propensi [place] [address] [facility] to Vomiting 4-10 [facility] [...] Diagnosis Comments Start Date Stop Date Source Natural mother Colon cancer Bruce son Maternal uncle Colon cancer Bruce son Social History Social Habit Start Date Stop Date Quantity Comments Source History SDOH [facility] Std Drinks [facility] History SDOH [facility] - Alcohol Binge Medical Stefan ter Sex Assigned At [facility] Tobacco use and 2020-07-04 2020-07-04 Never used MD Dorman on exposure 00:00:00 00:00:00 Alcohol intake 2020-07-04 2020-07-04 Current MD Anderso n 00:00:00 00:00:00 non-drinker of alcohol (finding) History SDOH 2018-09-01 2018-09-[address] [facility] - Alcohol Frequency 00:00:00 00:00:00 Medical Center Smoking Status Start Date Stop Date Source Never smoker MD Ulloa Medications Ordered Filled Start Stop Current Ordering Indication Dosage Frequency Signature Comments Components Source Medication Medication Date Date Medication? Clinician (SIG) Name Name lisinopril Yes 20mg Take 20 mg M D (PRINIVIL,Z 2-10 by mouth. And erso ESTRIL) 20 18:19: n mg tablet 47 amLODIPine Yes 5mg Take 5 mg MD (NORVASC) 5 2-10 by mouth. And erso mg tablet 18:19: n 47 omeprazole 2019-05 2020- No Take by (PriLOSEC) 0-28 08-12 mouth Anderso 10 MG 08:34: 00:00 daily. n capsule 37 :00 famotidine Yes 20mg Take 20 mg M D (PEPCID) 20 8-04 by mouth Darin rso mg tablet 00:00: daily. n 00 triamcinolo 2018-05 Yes Pruritic Apply M D ne 1-19 rash topically Anderso (TRIDERM) 00:00: to n 0.1% cream 00 affected area(s) 3 (three) times a day as needed for rash. metoprolol Yes 50mg Take 50 mg M D tartrate 7-11 by mouth Anderso (LOPRESSOR) 00:00: at n 50 mg 00 bedtime. tablet BASAGLAR Yes INJECT 20 KWIKPEN 6-20 UNITS Anderso U-100 00:00: SUBCUTANEO n INSULIN 100 00 USLY ONCE unit/mL (3 DAILY mL) insulin pen magnesium Yes Hypomagnese 500mg Take 1 MD oxide 500 5-30 kyaw tablet Anderso mg tablet 00:00: (500 mg) n 00 by mouth twice daily. amLODIPine Yes 5mg QD Take [address] (NORVASC) 5 4-11 by mouth Luke s - MG tablet 15:30: daily. Medica [address] cyclobenzap Yes 10mg Take [address] [facility] [address] rine 4-11 by mouth 3 [facility] - (FLEXERIL) 15:30: (three) Medi alexandro 10 MG 41 times Center tablet daily as needed for Muscle spasms. gabapentin 2019-0 Yes 300mg Q.5D Take [address] (NEURONTIN) 4-11 mg by [facility] - 300 MG 15:30: mouth 2 Medical capsule 41 (two) Center times daily. HYDROcodone 2019-0 Yes 1{tbl} Take [address] -acetaminop 4-11 tablet by Cody es - hen (NORCO 15:30: mouth Medica l 7.5-325) 41 every 6 Center 7.5-325 mg (six) per tablet hours as needed for Pain. hydrOXYzine 2019-0 Yes 10mg Take [address] (ATARAX) 10 4-11 by mouth 4 Keren kes - mg/5 mL 15:30: (four) Medical syrup 41 times Center daily as needed for Itching. lisinopril 2019-0 Yes 20mg QD Take [address] (PRINIVIL,Z 4-11 by mouth Luke s - ESTRIL) 20 15:30: daily . Medi alexandro MG tablet 41 Center meloxicam 0 Yes 15mg QD Take [address] (MOBIC) 15 4-11 by mouth [facility] - MG tablet 15:30: daily. Medica l 41 Center metFORMIN 0 Yes 750mg Q.5D Take [address] (GLUCOPHAGE 4-11 mg by [facility] - -XR) 750 MG 15:30: mouth 2 Med ical 24 hr 41 (two) Center tablet times daily. metoprolol 2019-0 Yes 50mg QD Take [address] (TOPROL-XL) 4-11 by mouth Luke s - 50 MG 24 hr 15:30: nightly. Me dical tablet 41 Center zolpidem 2019-0 Yes 10mg Take [address] (AMBIEN) 10 4-11 by mouth Luke s - mg tablet 15:30: every Medical 41 night as Center needed for Insomnia. ALPRAZolam 2019-0 Yes .25mg Take 0.[address] (XANAX) 4-11 mg by [facility] - 0.25 MG 15:30: mouth Medical tablet 41 every Center night as needed for Anxiety. ALPRAZolam 2018-2020- No MD (XANAX) 4-08 02-10 Anderso 0.25 mg 00:00: 00:00 n tablet 00 :00 gabapentin 2018- Yes 3 (three) (NEURONTIN) 3-06 times a Bruce grant 300 mg 00:00: day. n capsule 00 [...] Yes TAKE 1 rine 6-20 TABLET BY Andchalino (FLEXERIL) 00:00: MOUTH 2 n 10 mg 00 TIMES tablet DAILY NEEDED MAY MAKE DROWSY Vital Signs Vital Name Observation Time Observation Value Comments Source WEIGHT 2020-07-04 12:45:33 75.5 kg WEIGHT 2020-07-04 12:45:33 75.5 kg Systolic blood pressure 2020-07-04 18:45:33 124 mm[Hg] MD Ulloa Diastolic blood pressure 2020-07-04 18:45:33 82 mm[Hg] MD Ulloa Heart rate 2020-07-04 18:45:33 96 /min MD Bruce calzada Body temperature 2020-07-04 18:45:33 36.72 Aaliyah MD Tanja beckman Respiratory rate 2020-07-04 18:45:33 18 /min MD Tanja beckman Body weight 2020-07-04 18:45:33 75.5 kg MD Bruce calzada BMI 2020-07-04 18:45:33 29.86 kg/m2 MD Bruce calzada Procedures Procedure Date / Time Performed Performing Clinician Sourc e MAMMO DIGITAL DIAGNOSTIC 2020-07-04 17:21:00 Stephanie Gómez MD BILATERAL W EDGAR Plan of Care Planned Activity Planned Date Details Comments Source Future Scheduled 2020-07-[address] [facility] - Test 00:00:00 malignant neoplasm of [facility] breast (procedure) [code = 681682659] Future Scheduled 2020-05-[address] [facility] - Test 00:00:00 (12+) [code = [facility] DEPRESSION SCREENING (12+)] Future Scheduled 2020-01-24 INFLUENZA VACCINE (#1) [facility] Test 00:00:00 [code = INFLUENZA Medical Ce nter VACCINE (#1)] Future Scheduled 2019-06-[address] [facility] - Test 00:00:00 WELLNESS (YEAR 2 or Medical Center FIRST YEAR if no IPPE) [code = MEDICARE ANNUAL WELLNESS (YEAR 2 or FIRST YEAR if no IPPE)] Future Scheduled 2017-02-06 PNEUMOCOCCAL 65+ YRS [facility] - Test 00:00:00 (1 of 1 - Medical Center [id number] PCV13) [code = PNEUMOCOCCAL 65+ YRS (1 of 1 - [id number] PCV13)] Future Scheduled 2002-02-06 SHINGLES VACCINES ([address] [facility] - Test 00:00:00 of 2) [code = SHINGLES Medic al Center VACCINES (1 of 2)] Future Scheduled 1971-02-06 DTAP/TDAP/TD VACCINES [facility] - Test 00:00:00 (1 - Tdap) [code = Medical C enter DTAP/TDAP/TD VACCINES (1 - Tdap)] Future Scheduled 1970-02-06 HEPATITIS C SCREENING [facility] - Test 00:00:00 [code = HEPATITIS C Medical Center SCREENING] Future Scheduled [address] [facility] - Test 00:00:00 malignant [facility]oplasm of [facility] colon (procedure) [code = 766226886] Encounters Start End Encounter Admission Attending Care Care Encounter Source Date/Time Date/Time Type Type Clinicians Facility Department ID 2020-07-04 2020-07-04 Outpatient ASA TURNER AUNG HORAN [id number] 12:38:42 13:27:27 MILES Dorman o lelo 2020-07-04 2020-07-04 Outpatient ASA HARVEY AUNG HORAN [id number] 12:06:34 12:06:34 JUANY lind 2020-07-04 2020-07-04 Outpatient ASA GÓMEZ AUNG HORAN [id number] 10:24:19 10:24:19 STEPHANIE lind 2020-01-04 2020-01-04 Outpatient ASA HARVEY AUNG [facility]ORAN [id number] 07:35:59 07:35:59 JUANY Dorman robin lelo 2019-07-19 2019-07-19 Emergency Ede [facility] [id number] 11:46:40 13:39:00 Sanjuanita Oneal [id number] [place] [id number] [place] [id number] 2019-07-19 2019-07-19 Orders Doctor [place]TE [id number] 00:00:00 00:00:00 Only Unassigned, KAREN [id number] [place] [facility] [id number] Results Test Description Test Time Test Comments Results Result [facility] e Comments Mammography 2020-07-04 There is no [facility] 18:52:40 mammographic Diagnostic evidence of Bilateral with malignancy. Edgar Follow-up mammogram in 1 year is recommended. BI-RADS Category 2:Benign Finding(s) Interface, Radiology Results In - 07/04/2020 12:52 PM CST CLINICAL INDICATION:Patient is a 70 year old female and is seen for history of breast cancer MAMMO DIGITAL DIAGNOSTIC BILATERAL W TOMODigital Mammogram evaluated with Computer Aided Detection (CAD). COMPARISON:The present examination has been compared to prior imaging studies performed atan outside location on 08/13/2016 and 09/29/2017, and at [facility] on 07/15/2018, 12/07/2018, 02/16/2019 and 07/06/2019. FINDINGS:There are scattered areas of fibroglandular density. 1: There is a post surgical scar with associated skin thickening and surgicalclips in the right breast inner hemisphere at 3 o'clock. The patient is statuspost segmentectomy with radiation for a weakly ER+, MD-, HER2 - right 3o'clockmalignancy in July 2018. 2: There are benign appearing calcifications with diffuse/scattereddis tribution in both breasts. Tomosynthesis performed in CC and MLO projections. IMPRESSION:There is no mammographic evidence of malignancy. Follow-up mammogram in 1 year is recommended. BI-RADS Category 2:Benign Finding(s) RAD, CHEST, 1 2018-09-02 Reason for FINAL REPORT PATIENT VIEW, NON DEPT 14:32:00 Exam:->C50.21 ID: [id number] Clinical History: C50.211 Comparison Study: None Findings: The heart and lungs are within normal limits. A left-sided Port-A-Cath is in place, the tip projecting over the SVC The pleural spaces are clear. Surgical clips project over the right thorax. Degenerative changes are noted. Impression: No active cardiopulmonary disease. Signed: Ramesh Choi MDReport Verified Date/Time: 09/02/2018 14:32:25 Reading Location: [facility] B1 C013W Consult Reading Room , TUNNEL CATH 2018-09-02 Reason for FINAL REPORT PATIENT CENTRAL INS 14:06:00 Exam:->C50.21 ID: [id number] LEFT W/PORT C 1 INTERNAL JUGULAR CHEST PORT INSERTION, UNDER FLUOROSCOPY. History: Right breast cancer. Port catheter needed for chemotherapy.. Modality: Sonography and fluoroscopy. Sedation: Versed two mg and fentanyl 125 mcg given intravenously for conscious sedation. Vital signs were monitored throughout the procedure by a nurse, and remained stable. Physician intra-service time was 30 minutes. Bisque Kiln Placer: Steff Approach: Left internal jugular vein Fluoroscopy [...] needle into the right atrium. A 4 Tajik micropuncture sheath was placed. A subcutaneous tunnel [...] MDReport Verified Date/Time: 09/02/2018 14:06:01 Reading Location: [facility] Radiology Reading Room
--- NOTE | 2020-11-07 14:48 | RAD REPORT ---
EXAM DESCRIPTION: CT - Spine Lumbar Wo Con - 11/07/2020 2:32 pm CLINICAL HISTORY: Radiculopathy. LOWER BACK PAIN COMPARISON: Follow Up Breast [facility] dated 04/21/2018; Breast Core BX w/US Guidance dated 04/26/20 18 TECHNIQUE: Axial noncontrast CT imaging of the lumbar spine was performed with coronal and sagittal re-formatted images. All CT scans are performed using dose optimization technique as appropriate and may include automated exposure control or mA/KV adjustment according to patient size. FINDINGS: No acute lumbar spine fracture seen. No aggressive marrow pattern or malalignment. Paraspinal tissues are normal in thickness. No paraspinal abscess or hematoma seen. Postsurgical changes are present lower lumbar spine. Posterior bulging of disc material seen particul joe notable at L3-4 L4-5 and L5-S1. There is evidence of mild to moderate central canal stenosis at L3-4. IMPRESSION: No acute lumbar spine abnormality is detected. Moderate lower lumbar degenerative spondylosis with postsurgical changes evident.
[2020-11-07] MEDS ORDERED: FENTANYL CITR 100 MCG/2 ML ONE (15:00)
[2020-11-07 15:01] LABS: Urine Blood Negative (Negative); Urine Glucose Negative (Negative); Urine Protein 1+ (Negative); Urine Specific Gravity 1.025 (1.005-1.030); Urine pH 5.5 (5.0-7.0)
[2020-11-07 15:13] LABS: Urine Bacteria <20 /HPF (<20); Urine RBC <5 /HPF (NONE SEEN)
--- NOTE | 2020-11-07 15:20 | EDPHYS ---
Physician Documentation [facility] Name: Soledad Cortes Age: 70 yrs Sex: Female : 1950 Arrival Date: 11/07/2020 Time: 12:47 Bed 6 Private MD: MOHIT Physician Jc Jean Baptiste HPI: 11/07 14:15 This 70 yrs old Black Female presents to ER via Ambulatory with complaints of Back Pain.cp 14:15 The patient presents with pain that is chronic. The symptoms are located in the low cp back. Historical: - Allergies: 13:33 Codeine; ca1 13:33 Talwin; ca1 13:33 Toradol; ca1 - PMHx: 13:33 breast cancer; CHRONIC LOW BACK PAIN; Diabetes - NIDDM; Hypertension; ca1 - PSHx: 13:33 Mastectomy, Right; ca1 - Immunization history:: Client reports receiving the 2nd dose of the Covid vaccine, Client reports receiving the 1st dose of the Covid vaccine, Pneumococcal vaccine is up to date, Flu vaccine is up to date. - Social history:: Smoking status: Patient denies any tobacco usage or history of. ROS: 14:30 Back: Positive for pain at rest, pain with movement, of the lumbar area and right low cp back. Vital Signs: 13:31 BP 122 / 84; Pulse 96; Resp 16 S; Temp 97.9(TE); Pulse Ox 99% on R/A; Weight 71.21 kg ca1 (R); Height 5 ft. 2 in. (157.48 cm) (R); Pain 9/10; 13:31 Body Mass Index 28.72 (71.21 kg, 157.48 cm) ca1 MDM: 14:01 Patient medically screened. cp 11/07 14:14 Order name: Urine Microscopic Only cp 11/07 15:01 Order name: Urine Dipstick-Ancillary; Complete Time: 15:03 EDMS 11/07 14:12 Order name: CT Lumbar Spine Wo Con; Complete Time: 15:03 cp 11/07 14:14 Order name: Urine Dipstick-Ancillary (obtain specimen); Complete Time: 15:02 cp Administered Medications: 14:43 Drug: fentaNYL (PF) 25 mcg Route: IM; Site: left deltoid; aa5 15:35 Follow up: Response: Pain is decreased aa5 Disposition: 11/07/20 15:19 Discharged to Home. Impression: Sciatica, right side. - Condition is Stable. - Discharge Instructions: Sciatica, Back Exercises. - Prescriptions for Cyclobenzaprine 10 mg Oral Tablet - take 1 tablet by ORAL route every 8 hours As needed; 20 tablet. Medrol (Brandon) 4 mg Oral Tablets, Dose Pack - take 1 tablet by ORAL route as directed - follow package instructions; 1 packet. - Medication Reconciliation Form, Thank You Letter, Antibiotic Education, Prescription Opioid Use form. - Follow up: Min Osborn DO; When: 2 - 3 days; Reason: Recheck today's complaints. - Problem is an acute exacerbation. - Symptoms have improved. Signatures: Dispatcher [employer] EDFabienne Handy Audri RN RN aa5 Juanito Spears PA PA cp Acob, Cheryl, RN RN ca1 Corrections: (The following items were deleted from the chart) 15:44 15:19 11/07/2020 15:19 Discharged to Home. Impression: Sciatica, right side. Condition bd is Stable. Forms are Medication Reconciliation Form, Thank You Letter, Antibiotic Education, Prescription Opioid Use. Follow up: Min Osborn; When: 2 - 3 days; Reason: Recheck today's complaints. Problem is an acute exacerbation. Symptoms have improved. cp
--- NOTE | 2020-11-07 15:20 | ER ---
Nurse's Notes [facility] Name: Soledad Cortes Age: 70 yrs Sex: Female : 1950 Arrival Date: 11/07/2020 Time: 12:47 Bed 6 Private MD: Diagnosis: Sciatica, right side Presentation: 11/07 13:31 Chief complaint: Patient states: R lower back pain radiating to the R leg since ca1 Thursday. Denies urinary symptoms. Coronavirus screen: Client denies travel out of the [place] in the last 14 days. At this time, the client does not indicate any symptoms associated with coronavirus-19. Ebola Screen: Patient negative for fever greater than or equal to 101.5 degrees Fahrenheit, and additional compatible Ebola Virus Disease symptoms Patient denies exposure to infectious person. Patient denies travel to an Ebola-affected area in the 21 days before illness onset. No symptoms or risks identified at this time. Initial Sepsis Screen: Does the patient meet any 2 criteria? No. Patient's initial sepsis screen is negative. Does the patient have a suspected source of infection? No. Patient's initial sepsis screen is negative. Risk Assessment: Do you want to hurt yourself or someone else? Patient reports no desire to harm self or others. Onset of symptoms was November 07, 2020. 13:31 Method Of Arrival: Ambulatory ca1 13:31 Acuity: JOHN 3 ca1 Triage Assessment: 13:45 General: Appears distressed, uncomfortable, Behavior is cooperative, appropriate for bp age, anxious. Pain: Complains of pain in right leg. EENT: No deficits noted. Neuro: Level of Consciousness is awake, alert, obeys commands, Oriented to Appropriate for age Gait is steady. Cardiovascular: No deficits noted. Respiratory: No deficits noted. GI: No signs and/or symptoms were reported involving the gastrointestinal system. : No signs and/or symptoms were reported regarding the genitourinary system. Derm: No deficits noted. Musculoskeletal: Circulation, motion, and sensation intact. Range of motion: intact in all extremities. Historical: - Allergies: 13:33 Codeine; ca1 13:33 Talwin; ca1 13:33 Toradol; ca1 - PMHx: 13:33 breast cancer; CHRONIC LOW BACK PAIN; Diabetes - NIDDM; Hypertension; ca1 - PSHx: 13:33 Mastectomy, Right; ca1 - Immunization history:: Client reports receiving the 2nd dose of the Covid vaccine, Client reports receiving the 1st dose of the Covid vaccine, Pneumococcal vaccine is up to date, Flu vaccine is up to date. - Social history:: Smoking status: Patient denies any tobacco usage or history of. Screenin:45 Abuse screen: Denies threats or abuse. Denies injuries from another. Nutritional bp screening: No deficits noted. Tuberculosis screening: No symptoms or risk factors identified. Assessment: 13:45 General: SEE TRIAGE NOTE. bp Vital Signs: 13:31 BP 122 / 84; Pulse 96; Resp 16 S; Temp 97.9(TE); Pulse Ox 99% on R/A; Weight 71.21 kg ca1 (R); Height 5 ft. 2 in. (157.48 cm) (R); Pain 9/10; 13:31 Body Mass Index 28.72 (71.21 kg, 157.48 cm) ca1 ED Course: 12:47 Patient arrived in ED. as 13:32 Triage completed. ca1 13:33 Arm band placed on right wrist. ca1 13:45 Patient has correct armband on for positive identification. Bed in low position. Call bp light in reach. Side rails up X2. 13:48 Masood Leach, RN is Primary Nurse. bp 13:55 Juanito Spears PA is PHCP. cp 13:55 Jc Jean Baptiste MD is Attending Physician. cp 14:32 CT Lumbar Spine Wo Con In Process Unspecified. EDMS 14:57 Urine collected: clean catch specimen, clear. aa5 15:18 Min Osborn DO is Referral Physician. cp Administered Medications: 14:43 Drug: fentaNYL (PF) 25 mcg Route: IM; Site: left deltoid; aa5 15:35 Follow up: Response: Pain is decreased aa5 Outcome: 15:19 Discharge ordered by MD. cp 15:44 Patient left the ED. bd Signatures: Dispatcher [employer] EDMS Fabienne Damian Amelia as Calderon, Audri, RN RN aa5 Juanito Spears PA PA cp Masood Leach, RN RN bp Sunshine Cain RN RN ca1
[2020-11-07 15:49] VITALS: BP 122/84; TEMP 97.9; O2SAT 99
== END 2020-11-07 15:44 | disposition home or self-care (01) ==
LOC: ER 12:44
DX: M54.31 Sciatica, right side (principal); I10 Essential (primary) hypertension; Z85.3 Personal history of malignant neoplasm of breast; Z88.5 Allergy status to narcotic agent
CPT/HCPCS: 72131; J3010; 81003; 81015

== ENCOUNTER 2021-08-04 16:50 | Emergency (ER) | payer OTHER ==
--- OUTSIDE RECORDS SUMMARY | 2021-08-04 16:53 | XMS REPORT | Continuity of Care Document ---
:1950 Author Organization [facility] t Address [address] [place] [address] Care Team Providers Name Role Phone [phone] Primary Care Physician Unavailable Umair SAENZ Attending Clinician Luis Enrique RN, F Attending Clinician Unavailable Darius CINDER DUMP CRANE OPERATOR Attending Clinician DARIUS Attending Clinician Unavailable Indra RN, M Attending Clinician Unavailable Jocelyne RN, L Attending Clinician JOHNNY Attending Clinician Unavailable CANDICE Attending Clinician Unavailable RUBINA Attending Clinician Unavailable Lito PAC, S Attending Clinician MORSE, S Attending Clinician Unavailable Doctor Unassigned, Name Attending Clinician Unavailable LITO, S Admitting Clinician Unavailable Payers Payer Name Policy Type Policy Number Effective Date Expiration Date S shona AETNA MEDICAREAETNA [id number] 2019 MD Ulloa MEDICARE 00:00:00 [id number] [address] AETNA MEDICARE ADV [id number] 2018 2020 00:00:00 00:00:00 Problems Condition Condition Condition Status Onset Resolution Last Treating Co mments Source Name Details Category Date Date Treatment Clinician Date Peripheral Peripheral Disease Active M D neuropathi neuropathi 6-18 An derso [...] Disease Active Overview: drug user drug user Williamtin Tanja pérez of this n note might be different from the original. [facility] [place] Allergies, Adverse Reactions, Alerts Allergy Allergy Status Severity Reaction(s) Onset Inactive Treating Comm ents Source Name Type Date Date Clinician CODEINE DRUG Active N/V [facility] INGREDI -13 ity of 00:00: [address] [place] DRUG Active N/V [facility] COMPOUND -13 ity of 00:00: [address] [place] DRUG Active N/V Univers C INGREDI 02-04 ity of 00:00: [address] Family History Family Member Diagnosis Comments Start Date Stop Date Source Maternal uncle Colon cancer MD Barrera son Natural mother Colon cancer Bruce son Social History Social Habit Start Date Stop Date Quantity Comments Source Alcohol intake 2021-01-15 2021-01-15 Current MD Heidi lind 00:00:00 00:00:00 non-drinker of alcohol (finding) Tobacco use and 2018-05-26 2018-05-26 Smokeless tobacco MD Ulloa exposure 00:00:00 00:00:00 non-user Sex Ass[birth year] F MD oDrman on 00:00:00 00:00:00 Smoking Status Start Date Stop Date Source Never smoked tobacco MD Ulloa Medications Ordered Filled Start Stop Current Ordering Indication Dosage Frequency Signature Comments Components Source Medication Medication Date Date Medication? Clinician (SIG) Name Name lisinopril Yes 20mg Take 20 mg M D (PRINIVIL,Z 2-10 by mouth. And erso ESTRIL) 20 12:19: n mg tablet 47 amLODIPine Yes 5mg Take 5 mg MD (NORVASC) 5 2-10 by mouth. And erso mg tablet 12:19: n 47 famotidine Yes 20mg Take 20 mg M D (PEPCID) 20 8-04 by mouth Darin rso mg tablet 00:00: daily. n 00 triamcinolo 2018-05- No Pruritic Apply MD ne 06-12 08-24 rash topically Anderso (TRIDERM) 00:00: 00:00 to n 0.1% cream 00 :00 affected area(s) 3 (three) times a day as needed for rash. metoprolol Yes 50mg Take 50 mg M D tartrate 11 by mouth Anderso (LOPRESSOR) 00:00: at n 50 mg 00 bedtime. tablet BASAGLAR Yes INJECT 20 MD KWIKPEN 6-20 UNITS Anderso U-100 00:00: SUBCUTANEO n INSULIN 100 00 USLY ONCE unit/mL (3 DAILY mL) insulin pen magnesium 2020- No Hypomagnese 500mg Take 1 MD oxide 500 10-21 kyaw tablet Anderso mg tablet 00:00: 00:00 (500 mg) n 00 :00 by mouth twice daily. gabapentin Yes 3 (three) MD (NEURONTIN) 3-06 times a Bruce so 300 mg 00:00: day. n capsule 00 HYDROcodone Yes TAKE 1 MD -acetaminop 6-20 TABLET BY And erso hen (NORCO) 00:00: MOUTH 4 n 7.5 mg-325 00 TIMES mg per DAILY MAY tablet MAKE DROWSY meloxicam Yes TAKE 1 MD (MOBIC) 15 6-20 TABLET BY Darin rso mg tablet 00:00: MOUTH WITH n 00 FOOD ONCE DAILY DO NOT TAKE ASPIRIN cyclobenzap Yes TAKE 1 MD rine 6-20 TABLET BY Anderso (FLEXERIL) 00:00: MOUTH 2 n 10 mg 00 TIMES tablet DAILY NEEDED MAY MAKE DROWSY Vital Signs Vital Name Observation Time Observation Value Comments Source WEIGHT 2020-07-04 12:45:33 75.5 kg Systolic blood pressure 2021-01-15 18:47:27 126 mm[Hg] MD Ulloa Diastolic blood pressure 2021-01-15 18:47:27 68 mm[Hg] MD Ulloa Heart rate 2021-01-15 18:47:27 112 /min MD Bruce calzada Body temperature 2021-01-15 18:47:27 37.22 Aaliyah MD Tanja beckman Respiratory rate 2021-01-15 18:47:27 18 /min MD Tanja beckman Body weight 2021-01-15 18:47:27 73.1 kg MD Bruce calzada BMI 2021-01-15 18:47:27 28.92 kg/m2 MD Bruce calzada Procedures This patient has no known procedures. Plan of Care Planned Activity Planned Date Details Comments Source Future Scheduled Test 2020-12-29 00:00:00 COVID-19 Vaccination (3 MD Ulloa - Booster for Moderna series) [code = COVID-19 Vaccination (3 - Booster for Moderna series)] Encounters Start End Encounter Admission Attending Care Care Encounter Source Date/Time Date/Time Type Type Clinicians Facility Department ID 2021-01-15 2021-01-15 Outpatient ASA MCCOY MDA MDA [id number] 13:37:14 13:37:14 CAMRYN lind 2020-07-04 2020-07-04 Outpatient ASA TURNER MDA MDA [id number] 12:38:42 13:27:27 MILES lind 2020-07-04 2020-07-04 Outpatient ASA HARVEY MDA MDA [id number] 12:06:34 12:06:34 JUANY Dorman o lelo 2020-07-04 2020-07-04 Outpatient ASA CESPEDES MDA MDA [id number] 10:24:19 10:24:19 STEPHANIE lind 2020-01-04 2020-01-04 Outpatient ASA HARVEY MDA MDA [id number] 07:35:59 07:35:59 JUANY lind 2019-07-19 2019-07-19 Emergency [facility] [id number] 11:46:40 13:39:00 Jase Oneal [id number] [place] [id number] Nathalie [id number] 2019-07-19 2019-07-19 Emergency X KATHLEEN MORSE ERT [id number] Univers 11:46:40 13:39:00 JASE de oliveira [facility] 2019-07-19 2019-07-19 Orders Doctor CHARLOTTE [id number] 00:00:00 00:00:00 Only Unassigned, KAREN [id number] [facility] [id number] Results Test Description Test Time Test Comments Results Result [facility] Comments RAD, CHEST, 1 2018-09-02 Reason for FINAL REPORT PATIENT VIEW, NON DEPT 14:32:00 Exam:->C50.211 ID: [id number] Clinical History: C50.211 Comparison Study: None Findings: The heart and lungs are within normal limits. A left-sided Port-A-Cath is in place, the tip projecting over the SVC The pleural spaces are clear. Surgical clips project over the right thorax. Degenerative changes are noted. Impression: No active cardiopulmonary disease. Signed: Ramesh Choi MDReport Verified Date/Time: 09/02/2018 14:32:25 Reading Location: [address] Consult Reading Room , TUNNEL CATH 2018-09-02 Reason for FINAL REPORT PATIENT CENTRAL INS W/PORT 14:06:00 Exam:->C50.211 ID: [id number] LEFT C INTERNAL JUGULAR CHEST PORT INSERTION, UNDER FLUOROSCOPY. History: Right breast cancer. Port catheter needed for chemotherapy.. Modality: Sonography and fluoroscopy. Sedation: Versed two mg and fentanyl 125 mcg given intravenously for conscious sedation. Vital signs were monitored throughout the procedure by a nurse, and remained stable. Physician intra-service time was 30 minutes. Tomb Maker Helper: Steff Approach: Left internal jugular vein Fluoroscopy [...] needle into the right atrium. A 4 Vietnamese micropuncture sheath was placed. A subcutaneous tunnel [...] MDReport Verified Date/Time: 09/02/2018 14:06:01 Reading Location: [facility] Radiology Reading Room
--- OUTSIDE RECORDS SUMMARY | 2021-08-04 16:53 | XMS REPORT | Clinical Summary ---
:1950 Author Organization [facility] MD Barrera [facility] Address [address] [place] [address] Care Team Providers Name Role Phone Surjit Nguyen MD Unavailable MD Raegan Primary Care Provider Ferny Al MD Unavailable MD Irena Unavailable Joni Delgadillo MD Unavailable Joni Degladillo MD Unavailable Allergies Active Allergy Reactions Severity Noted Date Comments Antiseptic Solution 09/01/2018 "surgica l scrub" Chlorhexidin-Isopropyl Rash Low 09/06/2018 Alcohol Codeine Nausea And Vomiting 02/05/2016 Ketorolac Nausea And Vomiting 02/05/2016 Pentazocine Lactate Nausea And Vomiting 09/01/2018 Talwin Compound Nausea And Vomiting 02/05/2016 Medications Medication Sig Dispensed Refills Start End Status Date Date HYDROcodone-acetami TAKE 1 TABLET BY 0 11/12/19 Active nophen (NORCO) 7.5 MOUTH 4 TIMES 18 mg-325 mg per DAILY MAY MAKE tablet DROWSY meloxicam (MOBIC) TAKE 1 TABLET BY 0 20 Active 15 mg tablet MOUTH WITH FOOD 18 ONCE DAILY DO NOT TAKE ASPIRIN cyclobenzaprine TAKE 1 TABLET BY 0 20 Active (FLEXERIL) 10 mg MOUTH 2 TIMES 18 tablet DAILY NEEDED MAY MAKE DROWSY lisinopril Take 20 mg by 0 Activ e (PRINIVIL,ZESTRIL) mouth. 20 mg tablet amLODIPine Take 5 mg by 0 Active (NORVASC) 5 mg mouth. tablet gabapentin 3 (three) times a 0 07/29/19 A ctive (NEURONTIN) 300 mg day. 19 capsule BASAGLAR KWIKPEN INJECT 20 UNITS 0 11/12/19 Active U-100 INSULIN 100 SUBCUTANEOUSLY 19 unit/mL (3 mL) ONCE DAILY insulin pen metoprolol tartrate Take 50 mg by 0 12/03/19 Active (LOPRESSOR) 50 mg mouth at bedtime. 19 tablet famotidine (PEPCID) Take 20 mg by 0 12/27/19 Active 20 mg tablet mouth daily. 20 magnesium oxide 500 Take 1 tablet (500 60 tablet 2 10/22/19 0 Discontinued mg mg) by mouth twice tabletIndications: daily. Hypomagnesemia triamcinolone Apply topically to 85.2 g 0 04/12/20 Discontinued (TRIDERM) 0.1% affected area(s) 3 (Not creamIndications: (three) times a Applicable) Pruritic rash day as needed for rash. Active Problems Patient Care Coordination Note Formatting of this note might be differe nt from the original. Pt allergic to chlorahexidine. Needs so ap and water for port access. 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 Cody Aguilar, [place] Encounters Date Type Specialty Care Team Description 07/08/2021 Telephone Oncology Denise Block FNP 06/11/2021 Telephone Breast Surgical Luis Enrique, Sarah F, burning plant operator 01/15/2021 Office Visit Oncology Pari Madrid NP Infiltratin g duct carcinoma of up per inner quadrant of right female br east 01/15/2021 Travel 01/11/2021 Documentation /GI Med Sommer Burrell RN 01/03/2021 Telephone Surgical Oncology Greta Casanova RN after 08/04/2020 Surgical History Surgery Date Site/Laterality Comments TUBAL LIGATION GANGLION CYST EXCISION Bilateral LAMINECTOMY Twice Medical History Medical History Date Comments Hypertension Diabetes mellitus type 2 without retinopathy Lower back injury 2006 Insomnia Chronic back pain Narcotic drug user Managed by Dr. Yanna Aguilar, [place]ULIS[place] Family History Medical History Relation Name Comments Colon cancer Maternal Uncle Colon cancer Mother Relation Name Status Comments Maternal Uncle Mother Social History Tobacco Use Types Packs/Day Years Used Date Never Smoker Smokeless Tobacco: Never Used Alcohol Use Standard Drinks/Week Comments No 0 (1 standard drink = 0.6 oz pure alcoho l) Sex Assigned at Date Recorded Female 12/29/2019 6:20 PM CDT Job Start Date Occupation Industry Not on file Not on file Not on file Obstetrics History Para Term AB IAB SAB Ectopic Multiple Living Live Births 2 1 1 Date Outcome GA Total Labor/2nd/3rd Weight Sex Delivery Anes PTL Shelby A 1 A5 Name Clin Labor Para AB Last Filed Vital Signs Vital Sign Reading Time Taken Comments Blood Pressure 126/68 01/15/2021 1:47 PM CDT Pulse 112 01/15/2021 1:47 PM CDT Temperature 37.2 C (99 F) 01/15/2021 1:47 PM CDT Respiratory Rate 18 01/15/2021 1:47 PM CDT Oxygen Saturation - - Inhaled Oxygen Concentration - - Weight 73.1 kg (161 lb 2.5 oz) 01/15/2021 1:47 PM CDT Height - - Body Mass Index 28.92 09/07/2018 9:26 AM CDT Plan of Treatment Health Maintenance Due Date Last Done Comments COVID-19 Vaccination (3 - Booster for 12/29/2020 07/29/2020 , 07/01/2020 Moderna series) Results Not on fileafter 08/04/2020 Insurance Payer Benefit Plan / Subscriber ID Effective Dates Phone Addre ss Type Group AETNA MEDICARE AETNA MEDICARE [id number] 2019-Presen [address] [place] [address] [address] [place], [place] [id number] Soledad Cortes Personal/Family Self [address] [place] [address] ([address] [place], [place] [id number] Care Teams Finance Manager Relationship Specialty Start Date End Date Padma Nguyen, PCP - External Obstetrics/Gynecology 05/04/18 MD Referring [address] [id number] Peter Carlin MD PCP - General Breast Surgery 05/24/[address] [place] [address] [id number] Katherine lA MD Internal Medicine 08/23/18 [address] [place] [address] Min Osborn MD Anesthesiology 08/23/18 [address] [facility] [address] [place] [address] Nawaf Delgadillo Physician Radiation Oncology 11/24/18 MD Joni [address] [place] [address] Nawaf Delgadillo Radiation Oncology 03/01/19 MD Joni [address] [place] [address]
[2021-08-04] MEDS ORDERED: FENTANYL CITR 100 MCG/2 ML ONE (18:11)
[2021-08-04] MEDS ORDERED: ONDANSETRON 4 MG/2 ML VIAL ONE (18:11)
[2021-08-04] MEDS ORDERED: NA CHLORIDE 0.9% 1,000 ML ONE (18:11)
[2021-08-04 18:52] LABS: Absolute Lymphocytes (CBC) 2.5 K/uL (0.7-4.9); Hematocrit 37.4 % (36.0-45.0); Lymphocytes % 31.7 % (15.3-44.8); MPV 7.7 fL (7.6-11.3); RBC Red Blood Cell Count 4.62 M/uL (3.86-4.86)
[2021-08-04 18:54] LABS: Protime INR 1.06
--- NOTE | 2021-08-04 19:01 | RAD REPORT ---
EXAM DESCRIPTION: RAD - Chest Single View - 08/04/2021 6:44 pm CLINICAL HISTORY: COUGH COMPARISON: Chest Single View dated 12/18/2019; Chest Single View dated 07/17/2019; Chest Single View dated 10/04/2017; Chest Pa And Lat (2 Views) dated 06/13/2017 FINDINGS: Lines: None. Lungs: Increased ill-defined bilateral airspace disease. Pleural: No significant pleural effusions or pneumothorax. Cardiac: Mild cardiomegaly. Bones: No acute fractures. Other: IMPRESSION: Ill-defined airspace opacities bilaterally could represent multifocal pneumonia, less li frankie edema.
[2021-08-04 19:16] LABS: Albumin 3.9 g/dL (3.4-5.0); Bilirubin Direct 0.1 mg/dL (0-0.2); Bilirubin Total 0.6 mg/dL (0.2-1.0); Protein, Total 8.4 g/dL (6.4-8.2); Troponin High Sensitivity 3.4 pg/mL (<58.9)
[2021-08-04 19:17] LABS: Magnesium 1.8 mg/dL (1.8-2.4); Potassium 3.5 mmol/L (3.5-5.1)
--- NOTE | 2021-08-04 19:41 | RAD REPORT ---
EXAM DESCRIPTION: CT - Head C Spine Cap Ann Cruz - 08/04/2021 7:28 pm CLINICAL HISTORY: PAIN COMPARISON: No comparisons TECHNIQUE: CT head without contrast. CT cervical spine without contrast with coronal and sagittal reformatted images. CT chest, abdomen and pelvis with coronal and sagittal reformatted images of the spine. All CT scans are performed using dose optimization technique as appropriate and may include automated exposure control or mA/KV adjustment according to patient size. FINDINGS: CT HEAD WITHOUT CONTRAST: No intracranial hemorrhage, hydrocephalus or extra-axial fluid collection. No acute large vascular te rritory infarct. The paranasal sinuses and mastoids are clear. The calvarium is intact. CT CERVICAL SPINE WITHOUT CONTRAST: No fracture or subluxation. The prevertebral soft tissues are normal in thickness.Mild cervical spondylosis with neural foraminal narrowing noted bilaterally at C6-7 and C7-T1. No central spinal stenosis is appreciated. CT CHEST, ABDOMEN, PELVIS: Thorax: Chest Wall: No abnormal mass Lungs: Low lung volumes with scattered ground-glass opacities favored represent hypoventilation. Pleura: No effusions or pneumothorax. Nina/Mediastinum: No lymphadenopathy. Aorta/Pulmonary Arteries: Unremarkable Heart: Normal size. Abdomen/Pelvis: Liver: Hepatic steatosis. Too small to characterize low-density lesion left hepatic lobe is statistic ally benign. Biliary: Cholecystectomy Stomach: No significant focal abnormality. Duodenum: No significant focal abnormality. Pancreas: Atrophic pancreas. Spleen: No significant abnormality. Adrenal: No suspicious lesions. Kidney/ureter: No hydronephrosis. No renal calculi. Retroperitoneum: No retroperitoneal adenopathy. Vascular: No aneurysm. Atherosclerosis . Bowel: No significant focal abnormality. No appendicitis identified. Peritoneum: No ascites or free air. Bladder: Grossly unremarkable. Reproductive: No adnexal masses. Bones: No acute fracture. Scattered mild degenerative disc disease in the thoracic and lumbar spine. Other: n/a IMPRESSION: Negative for acute traumatic findings involving the head, neck, chest, abdomen, or pelvi s. No acute findings . Incidental findings as noted above.
--- NOTE | 2021-08-04 19:50 | EDPHYS ---
Physician Documentation [facility] Name: Soledad Cortes Age: 71 yrs Sex: Female : 1950 Arrival Date: 08/04/2021 Time: 16:51 Bed 8 Private MD: MOHIT Physician Juanito Ulloa HPI: 08/04 18:30 This 71 yrs old Black Female presents to ER via Ambulatory with complaints of L arm tanna Pain, Low Back Pain. 18:30 The patient or guardian complains of pain, that is acute. The complaints affect the tanna right bicep, dorsal aspect of right forearm, right tricep and palmar aspect of right forearm. Context: The problem was sustained at an unknown location. Onset: The symptoms/episode began/occurred today. 18:30 Treatment prior to arrival includes: no previous treatment, COMPRESSION. Modifying tanna factors: The symptoms are alleviated by nothing. the symptoms are aggravated by nothing. The patient presents with pain that is acute, with no known mechanism of injury, that is chronic, with no known mechanism of injury, and decreased range of motion. The symptoms are located in the low back. The pain radiates to the lumbar area and right low back. The problem was sustained from unknown cause. Historical: - Allergies: 17:06 Codeine; ww 17:06 Toradol; ww 17:06 Talwin; ww - PMHx: 17:06 breast cancer; CHRONIC LOW BACK PAIN; Hypertension; Diabetes - NIDDM; ww - PSHx: 17:06 masectomy; back; ww - Immunization history:: Adult Immunizations up to date. - Social history:: Smoking status: Patient denies any tobacco usage or history of. - Family history:: not pertinent. ROS: 18:30 Constitutional: Negative for fever, chills, and weight loss, Eyes: Negative for injury, tanna pain, redness, and discharge, ENT: Negative for injury, pain, and discharge, Neck: Negative for injury, pain, and swelling, Cardiovascular: Negative for chest pain, palpitations, and edema, Respiratory: Negative for shortness of breath, cough, wheezing, and pleuritic chest pain, Abdomen/GI: Negative for abdominal pain, nausea, vomiting, diarrhea, and constipation, : Negative for injury, bleeding, discharge, and swelling, Skin: Negative for injury, rash, and discoloration, Neuro: Negative for headache, weakness, numbness, tingling, and seizure, Psych: Negative for depression, anxiety, suicide ideation, homicidal ideation, and hallucinations, Allergy/Immunology: Negative for hives, rash, and allergies, Endocrine: Negative for neck swelling, polydipsia, polyuria, polyphagia, and marked weight changes, Hematologic/Lymphatic: Negative for swollen nodes, abnormal bleeding, and unusual bruising. 18:30 Back: Positive for decreased range of motion, pain at rest, pain with movement, of the right low back. 18:30 MS/extremity: Positive for pain, of the right arm, NO SWELLING. NORMAL ROM. Exam: 18:30 Constitutional: This is a well developed, well nourished patient who is awake, alert, tanna and in no acute distress. Head/Face: Normocephalic, atraumatic. Eyes: Pupils equal round and reactive to light, extra-ocular motions intact. Lids and lashes normal. Conjunctiva and sclera are non-icteric and not injected. Cornea within normal limits. Periorbital areas with no swelling, redness, or edema. ENT: Nares patent. No nasal discharge, no septal abnormalities noted. Tympanic membranes are normal and external auditory canals are clear. Oropharynx with no redness, swelling, or masses, exudates, or evidence of obstruction, uvula midline. Mucous membranes moist. Neck: Trachea midline, no thyromegaly or masses palpated, and no cervical lymphadenopathy. Supple, full range of motion without nuchal rigidity, or vertebral point tenderness. No Meningismus. Chest/axilla: Normal chest wall appearance and motion. Nontender with no deformity. No lesions are appreciated. Cardiovascular: Regular rate and rhythm with a normal S1 and S2. No gallops, murmurs, or rubs. Normal PMI, no JVD. No pulse deficits. Respiratory: Lungs have equal breath sounds bilaterally, clear to auscultation and percussion. No rales, rhonchi or wheezes noted. No increased work of breathing, no retractions or nasal flaring. Abdomen/GI: Soft, non-tender, with normal bowel sounds. No distension or tympany. No guarding or rebound. No evidence of tenderness throughout. Female : Normal external genitalia. Skin: Warm, dry with normal turgor. Normal color with no rashes, no lesions, and no evidence of cellulitis. MS/ Extremity: Pulses equal, no cyanosis. Neurovascular intact. Full, normal range of motion. Neuro: Awake and alert, GCS 15, oriented to person, place, time, and situation. Cranial nerves II-XII grossly intact. Motor strength 5/5 in all extremities. Sensory grossly intact. Cerebellar exam normal. Normal gait. Psych: Awake, alert, with orientation to person, place and time. Behavior, mood, and affect are within normal limits. 18:30 Back: pain, that is mild, ROM is painful, normal spinal alignment noted, CVA tenderness, is absent, vertebral tenderness, is not appreciated, muscle spasm, is appreciated in the left low back, left mid back, right mid back and right low back. 18:36 Musculoskeletal/extremity: DVT Exam: No signs of deep vein thrombosis. no pain, no tanna swelling, no tenderness, negative Homans' sign noted on exam, no appreciated bluish discoloration, no erythema, no increased warmth. 18:36 Musculoskeletal/extremity: ROM: intact in all extremities, full active range of motion, tanna full passive range of motion, Circulation is intact in all extremities. Pulses: Sensation intact. Compartment Syndrome exam of affected extremity: is normal. no pain, no numbness, no tingling, no sensation deficit, no palor, no weak pulses, Joints: All joints appear normal with full range of motion. Tendon exam: specific tendon testing normal through active and passive range of motion 18:46 ECG was reviewed by the Attending Physician. [facility] Vital Signs: 17:03 BP 140 / 75; Pulse 104; Resp 18; Temp 98.1; Pulse Ox 97% on R/A; Weight 71.21 kg; ww Height 5 ft. 2 in. (157.48 cm); 18:00 BP 114 / 67; Pulse 93; Resp 15; Pulse Ox 97% ; jl7 20:07 BP 117 / 70; Pulse 89; Resp 16; Pulse Ox 98% on R/A; sm5 17:03 Body Mass Index 28.72 (71.21 kg, 157.48 cm) MDM: 17:54 Patient medically screened. [facility] 18:34 Differential diagnosis: contusion, tendonitis. Data reviewed: vital signs, nurses [facility] notes, lab test result(s), EKG, radiologic studies, CT scan, plain films. Data interpreted: residential monitor: rate is 104 beats/min, rhythm is regular, Pulse oximetry: on room air is 97 %. Test interpretation: by ED physician or midlevel provider: ECG, plain radiologic studies. Counseling: I had a detailed discussion with the patient and/or guardian regarding: the historical points, exam findings, and any diagnostic results supporting the discharge/admit diagnosis, lab results, radiology results, the need for outpatient follow up, for definitive care, a display designer outside, a family practitioner. 08/04 17:57 Order name: Basic Metabolic Panel; Complete Time: 19:33 08/04 17:57 Order name: CBC with Diff; Complete Time: 19:33 08/04 17:57 Order name: LFT's; Complete Time: 19:33 08/04 17:57 Order name: Magnesium; Complete Time: 19:33 08/04 17:57 Order name: NT PRO-BNP; Complete Time: 19:33 08/04 17:57 Order name: PT-INR; Complete Time: 19:33 08/04 17:57 Order name: Troponin HS; Complete Time: 19:33 08/04 17:57 Order name: XRAY Chest (1 view); Complete Time: 19:33 08/04 17:57 Order name: Lipase; Complete Time: 19:33 08/04 17:57 Order name: CT Traumagram (Head C Spine CAP W Con) 08/04 19:49 Order name: INCENTIVE SPIROMETRY 08/04 17:57 Order name: EKG; Complete Time: 17:57 08/04 17:57 Order name: Cardiac monitoring 08/04 17:57 Order name: EKG - Nurse/Tech; Complete Time: 18:51 08/04 17:57 Order name: IV Saline Lock; Complete Time: 18:51 08/04 17:57 Order name: Labs collected and sent; Complete Time: 18:51 08/04 17:57 Order name: O2 Per Protocol; Complete Time: 18:51 08/04 17:57 Order name: O2 Sat Monitoring; Complete Time: 18:51 [facility] EC:46 Rate is 96 beats/min. Rhythm is regular. QRS [place] is Normal. DC interval is normal. QRS tanna interval is normal. QT interval is normal. No Q waves. T waves are Normal. No ST changes noted. Clinical impression: NSR w/ Non-specific ST/T Changes. Interpreted by me. Reviewed by me. Administered Medications: 18:51 Drug: NS 0.9% 500 ml Route: IV; Rate: bolus; Site: right forearm; ww 18:55 Drug: fentaNYL (PF) 25 mcg Route: IVP; Site: left antecubital; jl7 18:55 Drug: Zofran (Ondansetron) 4 mg Route: IVP; Site: left antecubital; jl7 18:58 Drug: NS 0.9% 1000 ml Route: IV; Rate: 125 ml/hr; Site: left antecubital; jl7 20:07 Drug: Decadron - Dexamethasone 10 mg Route: IVP; Site: left forearm; sm5 20:08 Not Given (Physician Discretion): fentaNYL (PF) 25 mcg IVP once; RASS on ADMIN: sm5 Combtv4, Very Agttd3, Agttd2, Rstlss1, AlertClm0, Drwsy-1, Lt Sdtn-2, Mod Sdtn-3, Dp Sdtn-4, UnArsble-5 Disposition Summary: 08/04/21 19:50 Discharge Ordered Location: Home tanna Problem: new tanna Symptoms: have improved tanna Condition: Stable tanna Diagnosis - Low back pain tanna - Lymphedema, not elsewhere classified tanna - Sciatica, right side tanna Followup: tanna - With: Private Physician - When: 1 - 2 days - Reason: Recheck today's complaints, Continuance of care, Re-evaluation by your physician Followup: tanna - With: - When: 1 - 2 days - Reason: Recheck today's complaints, Continuance of care, Re-evaluation by your physician Discharge Instructions: - Discharge Summary Sheet tanna - Acute Back Pain, Adult tanna - Musculoskeletal Pain tanna - Sciatica tanna - Lymphedema tanna - How to Use an Incentive Spirometer tanna - Chronic Back Pain, Tzhe-mn-Htnc tanna - Sciatica, Rwcs-se-Vukg tanna - Radicular Pain tanna Forms: - Medication Reconciliation Form tanna - Thank You Letter tanna - Antibiotic Education tanna - Prescription Opioid Use tanna Prescriptions: - Dexamethasone 0.5 mg Oral Tablet - take 4 tablet by ORAL route 2 times per day; 24 tablet; Refills: 0, Product tanna Selection Permitted - Diclofenac Sodium 75 mg Oral tablet,delayed release (DR/EC) - take 1 tablet by ORAL route 2 times per day; 14 tablet; Refills: 0, Product tanna Selection Permitted Signatures: Dispatcher [employer] Juanito Melgar MD MD cha Leal, Jahala, RN RN jl7 Jessica Olvera RN RN sm5 Juany Claire RN RN ww
--- NOTE | 2021-08-04 19:50 | ER ---
Nurse's Notes [facility] Name: Soledad Cortes Age: 71 yrs Sex: Female : 1950 Arrival Date: 08/04/2021 Time: 16:51 Bed 8 Private MD: Diagnosis: Low back pain;Lymphedema, not elsewhere classified;Sciatica, right side Presentation: 08/04 17:03 Chief complaint: Patient states: Right lower back pain that started last night and is ww getting worse. Patient states that she is having problems ambulating. Coronavirus screen: Vaccine status: Patient reports receiving the 2nd dose of the covid vaccine. Client denies travel out of the [place] in the last 14 days. Ebola Screen: Patient denies travel to an Ebola-affected area in the 21 days before illness onset. Initial Sepsis Screen: Does the patient meet any 2 criteria? No. Patient's initial sepsis screen is negative. Does the patient have a suspected source of infection? No. Patient's initial sepsis screen is negative. Risk Assessment: Do you want to hurt yourself or someone else? Patient reports no desire to harm self or others. Onset of symptoms was August 03, 2021. 17:03 Method Of Arrival: Ambulatory ww 17:03 Acuity: JOHN 3 ww Triage Assessment: 17:06 General: Appears uncomfortable, Behavior is calm, cooperative. Pain: Complains of pain ww in back. Neuro: Level of Consciousness is awake, alert, obeys commands, Oriented to person, place, time, situation, Speech is normal. Cardiovascular: Capillary refill < 3 seconds Patient's skin is warm and dry. Respiratory: Airway is patent Respiratory effort is even, unlabored, Respiratory pattern is regular, symmetrical. GI: No signs and/or symptoms were reported involving the gastrointestinal system. : No signs and/or symptoms were reported regarding the genitourinary system. Derm: No deficits noted. Historical: - Allergies: 17:06 Codeine; ww 17:06 Toradol; ww 17:06 Talwin; ww - PMHx: 17:06 breast cancer; CHRONIC LOW BACK PAIN; Hypertension; Diabetes - NIDDM; ww - PSHx: 17:06 masectomy; back; ww - Immunization history:: Adult Immunizations up to date. - Social history:: Smoking status: Patient denies any tobacco usage or history of. - Family history:: not pertinent. Screenin:30 Abuse screen: Denies threats or abuse. Denies injuries from another. Nutritional 7 screening: No deficits noted. Tuberculosis screening: No symptoms or risk factors identified. Fall Risk IV access (20 points). Total Kemp Fall Scale indicates No Risk (0-24 pts). Assessment: 17:30 General: Appears in no apparent distress. uncomfortable, Behavior is calm, cooperative, jl7 appropriate for age. Pain: Complains of pain in low back area Pain currently is 10 out of 10 on a pain scale. Pain began chronic, pt denies trauma. Pain: Complains of pain in right arm Pain currently is 10 out of 10 on a pain scale. Pain began chronic, pt denies trauma. Neuro: Level of Consciousness is awake, alert, obeys commands, Oriented to person, place, time, situation. Cardiovascular: Patient's skin is warm and dry. Respiratory: Airway is patent Respiratory effort is even, unlabored, Respiratory pattern is regular, symmetrical. Derm: Skin is pink, warm \T\ dry. 18:30 Reassessment: Patient appears in no apparent distress at this time. No changes from jl7 previously documented assessment. Patient and/or family updated on plan of care and expected duration. Pain level reassessed. Patient is alert, oriented x 3, equal unlabored respirations, skin warm/dry/pink. Vital Signs: 17:03 BP 140 / 75; Pulse 104; Resp 18; Temp 98.1; Pulse Ox 97% on R/A; Weight 71.21 kg; Height 5 ft. 2 in. (157.48 cm); 18:00 BP 114 / 67; Pulse 93; Resp 15; Pulse Ox 97% ; jl7 20:07 BP 117 / 70; Pulse 89; Resp 16; Pulse Ox 98% on R/A; sm5 17:03 Body Mass Index 28.72 (71.21 kg, 157.48 cm) ED Course: 16:51 Patient arrived in ED. ds1 17:06 Triage completed. 17:07 Arm band placed on Patient placed in an exam room, on a stretcher. ll1 17:12 Juan Miller, PRABHU is Primary Nurse. 7 17:30 Patient has correct armband on for positive identification. Bed in low position. Call jl7 light in reach. Side rails up X 1. Pulse ox on. NIBP on. Warm blanket given. 17:54 Juanito Ulloa MD is Attending Physician. tanna 18:00 Missed attempt(s): 22 gauge in left antecubital area. Bleeding controlled, band aid jl7 applied, catheter tip intact. 18:10 Missed attempt(s): 22 gauge in left forearm. Bleeding controlled, band aid applied, jl7 catheter tip intact. 18:44 XRAY Chest (1 view) In Process Unspecified. EDMS 18:45 Inserted saline lock: 20 gauge in left forearm, using aseptic technique. ww 18:49 EKG done, by ED staff, reviewed by Juanito Ulloa MD. jw7 19:28 CT Traumagram (Head C Spine CAP W Con) In Process Unspecified. EDMS 19:50 Modesto Vela MD is Referral Physician. [facility] 20:07 INCENTIVE SPIROMETRY Sent. 5 20:07 No provider procedures requiring assistance completed. IV discontinued, intact, sm5 bleeding controlled, No redness/swelling at site. Pressure dressing applied. Administered Medications: 18:51 Drug: NS 0.9% 500 ml Route: IV; Rate: bolus; Site: right forearm; ww 18:55 Drug: fentaNYL (PF) 25 mcg Route: IVP; Site: left antecubital; jl7 18:55 Drug: Zofran (Ondansetron) 4 mg Route: IVP; Site: left antecubital; jl7 18:58 Drug: NS 0.9% 1000 ml Route: IV; Rate: 125 ml/hr; Site: left antecubital; 7 20:07 Drug: Decadron - Dexamethasone 10 mg Route: IVP; Site: left forearm; 5 20:08 Not Given (Physician Discretion): fentaNYL (PF) 25 mcg IVP once; RASS on ADMIN: sm5 Combtv4, Very Agttd3, Agttd2, Rstlss1, AlertClm0, Drwsy-1, Lt Sdtn-2, Mod Sdtn-3, Dp Sdtn-4, UnArsble-5 Outcome: 19:50 Discharge ordered by . tanna 20:07 Discharged to home ambulatory. 5 20:07 Condition: stable 20:07 Discharge instructions given to patient, Instructed on discharge instructions, follow up and referral plans. medication usage, incentive spirometer Demonstrated understanding of instructions, follow-up care, medications, incentive spirometer Prescriptions given X 2. 20:09 Patient left the ED. 5 Signatures: Dispatcher [employer] EDJuanito Holt MD MD cha [place], Demi ds1 Juan Miller RN RN jl7 Keara Swanson RN RN ll1 Jessica Olvera RN RN sm5 Juany Claire RN RN Brittni Bryant [facility]
[2021-08-04] MEDS ORDERED: dexAMETHasone 10 MG/ML VIAL ONE (20:01)
[2021-08-04 20:39] VITALS: TEMP 98.1
[2021-08-04 20:42] VITALS: BP 117/70; O2SAT 98
== END 2021-08-04 20:09 | disposition home or self-care (01) ==
LOC: ER 16:50
DX: M54.31 Sciatica, right side (principal); I89.0 Lymphedema, not elsewhere classified; I10 Essential (primary) hypertension; Z85.3 Personal history of malignant neoplasm of breast; Z88.5 Allergy status to narcotic agent
CPT/HCPCS: 93005; 85025; 80048; 36415; 83735; 85610; 82565; 80076; 84484; 83690; 83880; 70450; 72125; 71260; 74177; 71045; 99284; Q9967; J3010; J1100; J7030; J2405

== ENCOUNTER 2022-04-11 16:57 | Emergency (ER) | payer OTHER ==
--- OUTSIDE RECORDS SUMMARY | 2022-04-11 17:00 | XMS REPORT | Clinical Summary ---
:1950 Author Organization [facility] MD Barrera [facility] Address [address] [place] [address] Care Team Providers Name Role Phone Padma Nguyen MD Unavailable Peter Carlin MD Primary Care Provider Katherine Al MD Unavailable Min Osborn MD Unavailable Nawaf Delgadillo MD Unavailable Nawaf Delgadillo MD Unavailable Allergies Active Allergy Reactions Severity Noted Date Comments Antiseptic Solution 09/01/2018 "surgica l scrub" Chlorhexidin-Isopropyl Rash Low 09/06/2018 Alcohol Codeine Nausea And Vomiting 02/05/2016 Ketorolac Nausea And Vomiting 02/05/2016 Pentazocine Lactate Nausea And Vomiting 09/01/2018 Talwin Compound Nausea And Vomiting 02/05/2016 Medications Medication Sig Dispensed Refills Start Date End Date Status HYDROcodone-acetamino TAKE 1 TABLET BY 0 11/11/2017 Active phen (NORCO) 7.5 MOUTH 4 TIMES DAILY mg-325 mg per tablet MAY MAKE DROWSY meloxicam (MOBIC) 15 TAKE 1 TABLET BY 0 11/11/2017 Active mg tablet MOUTH WITH FOOD ONCE DAILY DO NOT TAKE ASPIRIN cyclobenzaprine TAKE 1 TABLET BY 0 11/11/2017 Active (FLEXERIL) 10 mg MOUTH 2 TIMES DAILY tablet NEEDED MAY MAKE DROWSY lisinopril Take 20 mg by mouth. 0 Active (PRINIVIL,ZESTRIL) 20 mg tablet amLODIPine (NORVASC) Take 5 mg by mouth. 0 Active 5 mg tablet gabapentin 3 (three) times a 0 07/28/2018 Active (NEURONTIN) 300 mg day. capsule BASAGLAR KWIKPEN INJECT 20 UNITS 0 11/11/2018 Active U-100 INSULIN 100 SUBCUTANEOUSLY ONCE unit/mL (3 mL) DAILY insulin pen metoprolol tartrate Take 50 mg by mouth 0 12/02/2018 Active (LOPRESSOR) 50 mg at bedtime. tablet famotidine (PEPCID) Take 20 mg by mouth 0 12/27/2019 Active 20 mg tablet daily. Active Problems Patient Care Coordination Note Formatting of this note might be differe nt from the original. Pt allergic to chlorahexidine. Needs soa p and water for port access. 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 05/26/2018 Cancer Staging: Clinical stage from 2018: Stage IB (cT1c, cN0, cM0, G3, ER+, FL-, HER2-) - Signed by Peter Carlin MD on 05/26/2018 Pathologic stage from 08/19/2018: Stage I IA (pT2, pN0, cM0, G3, ER+, FL-, HER2-) - Signed by Peter Carlin MD on 08/19/2018 Lower back injury 05/25/2006 Chronic back pain Diabetes mellitus type 2 without retinopathy Hypertension Insomnia Narcotic drug user Overview: Managed by YULISSA Colon Encounters Date Type Specialty Care Team Description 07/08/2021 Telephone Oncology Denise Block FNP 06/11/2021 Telephone Breast Surgical Oncology Sarah Dudley RN after 04/11/2021 Surgical History Surgery Date Site/Laterality Comments TUBAL LIGATION GANGLION CYST EXCISION Bilateral LAMINECTOMY Twice Medical History Medical History Date Comments Hypertension Diabetes mellitus type 2 without retinopathy Lower back injury 2006 Insomnia Chronic back pain Narcotic drug user Managed by YULISSA Caba Family History Medical History Relation Name Comments Colon cancer Maternal Uncle Colon cancer Mother Relation Name Status Comments Maternal Uncle Mother Social History Tobacco Use Types Packs/Day Years Used Date Smoking Tobacco: Never Smokeless Tobacco: Never Alcohol Use Standard Drinks/Week Comments No 0 [...] Labor Para AB Last Filed Vital Signs Not on file Plan of Treatment Health Maintenance Due Date Last Done Comments COVID-19 Vaccination (3 - Booster for 09/23/2020 07/29/2020 , 07/01/2020 Moderna series) Results Not on fileafter 04/11/2021 Insurance Payer Benefit Plan / Subscriber ID Effective Dates Phone Addre ss Type Group AETNA MEDICARE AETNA MEDICARE [id number] 2019-Presen [address] [place] [address] ([place]) [place] [id number] Soledad Cortes Personal/Family Self [address] [place] [address] (Home) [place] [address] Soledad Cortes Personal/Family Self [address] [place] [address] ([place]) [place] [address] Care Teams Real Time Trader Relationship Specialty Start Date End Date Padma Nguyen, PCP - External Obstetrics/Gynecology 05/04/18 Referring [address] [address] Peter Carlin MD PCP - General Breast Surgery 05/24/[address] [place] [address] [id number] Katherine Al MD Internal Medicine 08/23/18 Min Osborn MD Anesthesiology 08/23/[address] [place] [address] [address] [place] [address] Nawaf Delgadillo Physician Radiation Oncology 11/24/[address] MD Jon[address] [place], [place] [id number] Nawaf Delgadillo Radiation Oncology 03/01/19 MD Joni [address] [place] [address] [address] [place], [place] [id number]
--- OUTSIDE RECORDS SUMMARY | 2022-04-11 17:01 | XMS REPORT | Continuity of Care Document ---
:1950 Author Organization [facility] t Address [address] [place] [address] Dr. Hendricks [address] [place] [address] Care Team Providers Name Role Phone [phone] Primary Care Physician Unavailable JASE MORSE Attending Clinician Unavailable Jase Saini Attending Clinician Denise Espinal Attending Clinician Luis Enrique PELLETIER, August Attending Clinician Unavailable CAMRYN MCCOY Attending Clinician Unavailable MILES TURNER Attending Clinician Unavailable JUANY HARVEY Attending Clinician Unavailable STEPHANIE CESPEDES Attending Clinician Unavailable Doctor Unassigned, [place] Attending Clinician Unavailable JASE MORSE Admitting Clinician Unavailable Payers Payer Name Policy Type Policy Number Effective Date Expiration Date Alexx [employer] MEDICARE OUT [id number] 2019 OF NETWORK 00:00:00 Problems Condition Condition Condition Status Onset Resolution Last Treating Co mments Source Name Details Category Date Date Treatment Clinician Date Peripheral Peripheral Disease Active U nivers neuropathi neuropathi 6-18 it y of c pain c pain 00:00: [place] 00 [facility] Infiltrati Infiltrati Disease Active U nivers ng duct ng duct - it[place] of carcinoma carcinoma 00:[place] upper 00 inner inner Anderso quadrant quadrant n of right of right Cancer female female Center breast breast Lower back Lower back Disease Active U nivers injury injury 05-25 ity of 00:00: [place] 00 [facility] Chronic Chronic Disease Active Univers back pain back pain ity of [place] [facility] Diabetes Diabetes Disease Active Unive rs mellitus mellitus ity of type 2 type 2 [place] without without MD retinopath retinopath An derso y y n [facility] Hypertensi Hypertensi Disease Active U nivers on on ity of [place] [facility] Insomnia Insomnia Disease Active Unive rs ity of [place] MD [facility] Narcotic Narcotic Disease Active Overview: Un chucky drug user drug user Formattin i ty of g of this [place] note MD might be Heidi lowery n from the Cancer original. Center Managed by Dr. Cody Copeland [facility] [place] No known No known Disease Unive rs active active ity of problems problems [place] [facility] Allergies, Adverse Reactions, Alerts Allergy Allergy Status Severity Reaction(s) Onset Inactive Treating Comm ents Source Name Type Date Date Clinician Chlorhex Propensi Active Rash Univer s idin-Iso ty to 4-15 ity of propyl adverse 00:00: [place] Alcohol reaction 00 [facility] CHLORHEX DRUG Active Low Rash IDIN-ISO 4-15 Anderso PROPYL 00:00: n ALCOHOL 00 Antisept Propensi Active "surgical Uni vers ic ty to 4-10 scrub" ity of Solution adverse 00:00: [place] reaction 00 [facility] Pentazoc Propensi Active Nausea And Un chucky ine ty to Vomiting 4-10 ity of Lactate adverse 00:00: [place] reaction 00 [facility] Codeine Propensi Active Nausea And [facility] adverse 00:00: Medical reaction 00 [facility] Ket[place]ola Propensi Active Nausea And [facility] ty to Vomiting 4-10 [facility] adverse 00:00: Medical reaction 00 Center s PENTAZOC DRUG Active NandV 2019-0 INE INGREDI 4-10 Anderso LACTATE 00:00: n 00 ANTISEPT DRUG Active 2019-0 IC INGREDI 4-10 Anderso SOLUTION 00:00: n 00 Codeine Propensi Active Nausea And 2016-0 Uni vers ty to Vomiting 9-13 ity of adverse 00:00: [place] reaction 00 MD alexx lind [facility] [place]or[place] Propensi Active Nausea And 2016-0 Un chucky c ty to Vomiting -13 ity of adverse 00:00: [place] reaction 00 MD alexx lind [facility] Talwin Propensi Active Nausea And 2016-0 Univ ers Compound ty to Vomiting - ity of adverse 00:00: [place] reaction 00 MD alexx lind [facility] KETOROLA DRUG Active NandV 2016-0 MD C INGREDI 9-13 Anderso 00:00: n 00 TALWIN DRUG Active NandV 2016-0 MD COMPOUND 9-13 Anderso 00:00: n 00 CODEINE DRUG Active NandV 2016-0 MD INGREDI 9-13 Anderso 00:00: n 00 CODEINE DRUG Active N/V 2016-0 Univers INGREDI 9-13 ity of 00:00: [place] 00 [facility] TALWIN DRUG Active N/V 2016-0 Univers COMPOUND 9-13 ity of 00:00: [place] 00 [facility] KETOROLA DRUG Active N/V 2016-0 Univers C INGREDI 9-13 ity of 00:00: [place] 00 [facility] Family History Family Member Diagnosis Comments Start Date Stop Date Source Maternal uncle Colon cancer Universi ty [facility] Cance r [place] Natural mother [facility] Social History Social Habit Start Date Stop Date Quantity Comments Source History SDOH [facility] St[facility] Cent[facility] r Drinks History SDOH [facility] Alcohol Binge Medical Stefan ter History SDOH [facility] Alcohol Comment Medical C enter ASSERTION [facility] [place] [facility] Exposure to 2022-03-20 2022-03-30 Not sure [facility]-2 00:00:00 12:11:00 [facility] (event) [place] Alcohol intake 2021-01-15 2021-01-15 Current University 00:00:00 00:00:00 non-drinker of [place] MD Tanja beckman alcohol [facility] (finding) Tobacco use and 2018-09-01 2018-09-[address] [facility] [address] [facility] exposure 00:00:00 00:00:00 Medical Center History SDOH 2018-09-01 2018-09-[address] [facility] Alcohol Frequency 00:00:00 00:00:00 Medical Center Sex Assigned At [address] [facility] 00:00:00 00:00:00 Medical Center Smoking Status Start Date Stop Date Source Tobacco smoking consumption [facility] Branch Never smoked tobacco [facility] Medications Ordered Filled Start Stop Current Ordering Indication Dosage Frequency Signature Comments Components Source Medication Medication Date Date Medication? Clinician (SIG) Name Name dexamethaso 2021-05 No 10mg 10 mg, Uni vers ne sod phos 05-30 11-06 Oral, ity of PF 19:45: 19:55 ONCE, 1 [place] injection 00 :00 dose, On Medica l 10 mg [place] Branch 03/30/22 at 1345, 1 mL naproxen 2021-05 Yes [id number] 500mg Take 1 U nivers (NAPROSYN) -06 tablet by ity of 500 mg 00:00: mouth in [place] tablet 00 the Medical morning Branch and 1 tablet in the evening. Take with meals. lisinopril Yes 20mg Take 20 mg U nivers (PRINIVIL,Z 2-10 by mouth. ity of ESTRIL) 20 12:19: [place] mg tablet 47 MD [facility] amLODIPine Yes 5mg Take 5 mg Un chucky (NORVASC) 5 2-10 by mouth. ity of mg tablet 12:19: [place] 47 MD [facility] famotidine Yes 20mg Take 20 mg U nivers (PEPCID) 20 8-04 by mouth ity of mg tablet 00:00: daily. [place] 00 MD [facility] ibuprofen 2019- Yes [id number] 600mg Take 1 Univers 600 mg 2-25 tablet by ity of tablet 00:00: mouth [place] 00 every 6 Medical (six) Branch hours as needed for Pain (scale 4-6). metoprolol Yes 50mg Take 50 mg U nivers tartrate 7-11 by mouth ity of (LOPRESSOR) 00:00: at [place] 50 mg 00 bedtime. MD tablet [facility] BASAGLAR Yes INJECT 20 Univ ers KWIKPEN 6-20 UNITS ity of U-100 00:00: SUBCUTANEO [place] INSULIN 100 00 USLY ONCE MD unit/mL (3 DAILY Anderso mL) insulin n pen [facility] predniSONE 2018-0 Yes [id number] 50mg Take 1 Univers 50 mg 4-13 tablet by ity of tablet 00:00: mouth [place] 00 daily. Medical Branch famotidine 2018- Yes [id number] 40mg Take 1 Univers (PEPCID) 40 4-13 tablet by ity of mg tablet 00:00: mouth [place] 00 daily. Medical Branch amLODIPine 2018-0 Yes 5mg QD Take [address] (NORVASC) 5 4-11 by mouth Luke s MG tablet 15:30: daily. Medica l 41 Center cyclobenzap 0 Yes 10mg Take [address] rine 4-11 by mouth 3 [facility]ukes (FLEXERIL) 15:30: (three) Medi alexandro 10 MG 41 times Center tablet daily as needed for Muscle spasms. gabapentin 0 Yes 300mg Q.5D Take [address] (NEURONTIN) 4-11 mg by [facility] 300 MG 15:30: mouth 2 Medical capsule 41 (two) Center times daily. HYDROcodone 2019-0 Yes 1{tbl} Take [address] -acetaminop 4-11 tablet by Cody moe (NORCO 15:30: mouth Medica l 7.5-325) 41 every 6 Center 7.5-325 mg (six) per tablet hours as needed for Pain. hydrOXYzine [id number] Yes 10mg Take [address] (ATARAX) 10 4-11 by mouth 4 Keren kes mg/5 mL 15:30: (four) Medical syrup 41 times Center daily as needed for Itching. lisinopril 2019-0 Yes 20mg QD Take [address] (PRINIVIL,Z 4-11 by mouth Luke s ESTRIL) 20 15:30: daily . Medi alexandro MG tablet 41 Center meloxicam 2018-0 Yes 15mg QD Take [address] (MOBIC) 15 4-11 by mouth [facility]ukes MG tablet 15:30: daily. Medica l 41 Center metFORMIN 2019-0 Yes 750mg Q.5D Take [address] (GLUCOPHAGE 4-11 mg by [facility]ukes -XR) 750 MG 15:30: mouth 2 Med ical 24 hr 41 (two) Center tablet times daily. metoprolol 2019-0 Yes 50mg QD Take [address] (TOPROL-XL) 4-11 by mouth Luke s 50 MG 24 hr 15:30: nightly. Me dical tablet 41 Center zolpidem 2018-0 Yes 10mg Take [address] (AMBIEN) 10 4-11 by mouth Luke s mg tablet 15:30: every Medical 41 night as Center needed for Insomnia. ALPRAZolam 2019-0 Yes .25mg Take 0.[address] (XANAX) 4-11 mg by [facility] 0.25 MG 15:30: mouth Medical tablet 41 every Center night as needed for Anxiety. gabapentin 2019-0 Yes 3 (three) Un chucky (NEURONTIN) 3-06 times a ity o f 300 mg 00:00: day. [place] capsule 00 MD [facility] cyclobenzap 2019-0 Yes 5mg Take 1 Univ ers rine 5 mg 1-06 tablet by ity o f tablet 00:00: mouth 3 [place] 00 (three) Medical times Branch daily. traMADOL 2019-0 Yes 50mg Take 1 Univers (ULTRAM) 50 1-06 tablet by ity of mg tablet 00:00: mouth [place] 00 every 6 Medical (six) Branch hours as needed for Pain (scale 4-6). pregabalin 2019-0 Yes 25mg Take 1 Unive rs 25 mg 1-06 capsule by ity of capsule 00:00: mouth 3 [place] 00 (three) Medical times Branch daily. HYDROcodone 2017-0 Yes TAKE 1 Univ ers -acetaminop 6-20 TABLET BY ity of hen (NORCO) 00:00: MOUTH 4 Audie as 7.5 mg-325 00 TIMES MD mg per DAILY SEPTEMBER Anderso tablet MAKE n DROWSY [facility] [place] meloxicam 2017- Yes TAKE 1 Univer s (MOBIC) 15 6-20 TABLET BY ity of mg tablet 00:00: [place]TH [place] 00 FOOD ONCE MD DAILY DO Anderso NOT TAKE n ASPIRIN [facility] cyclobenzap Yes TAKE 1 Univ ers rine 6-20 TABLET BY ity of (FLEXERIL) 00:00: [place]TH 2 [place] 10 mg 00 TIMES MD tablet DAILY Anderso NEEDED MAY n MAKE Cancer DROWSY Center HYDROcodone Yes TAKE 1 Univ ers -acetaminop 6-20 TABLET BY ity of hen 7.5-325 00:00: MOUTH 4 Audie as mg per 00 TIMES Medical tablet DAILY MAY Branch MAKE DROWSY Immunizations Ordered Filled Immunization Date Status Comments Sourc e Immunization Name Name SARS-COV-2 COVID-19 2020-07-29 Completed Unive rsity of MODERNA 12+ YRS 00:00:00 [place] Med ical VACCINE Branch SARS-COV-2 COVID-19 2020-07-01 Completed Unive rsity of MODERNA 12+ YRS 00:00:00 [facility] ical VACCINE Branch Vital Signs Vital Name Observation Time Observation Value Comments Source Systolic blood 2022-03-30 19:00:00 140 mm[Hg] Univer sity of pressure [facility] Diastolic blood 2022-03-30 19:00:00 97 mm[Hg] Unive rsity of pressure [facility] Heart rate 2022-03-30 19:00:00 81 /min [facility] Respiratory rate 2022-03-30 19:00:00 16 /min [facility] Oxygen saturation in 2022-03-30 19:00:00 97 /min [facility] Arterial blood by [facility] Pulse oximetry Branch Body temperature 2022-03-30 18:08:00 37 Aaliyah [facility] Body height 2022-03-30 18:08:00 157.5 cm [facility] Body weight 2022-03-30 18:08:00 72.576 kg [facility] BMI 2022-03-30 18:08:00 29.26 kg/m2 [facility] WEIGHT 2020-07-04 12:45:33 75.5 kg Procedures Procedure Date / Time Performed Performing Clinician Sour e CONSENT/REFUSAL FOR 2022-03-30 17:52:15 Doctor Unassigned, No Un [facility] DIAGNOSIS AND Name Medical Branch TREATMENT Plan of Care Planned Activity Planned Date Details Comments Source Future Scheduled 2022-03-22 COVID-19 Vaccination Uni versity of [place] Test 10:24:51 (3 - Booster for MD [facility] Moderna series) [code Center = COVID-19 Vaccination (3 - Booster for Moderna series)] Encounters Start End Encounter Admission Attending Care Care Encounter Source Date/Time Date/Time Type Type Clinicians Facility Department ID 2022-03-30 2022-03-30 Emergency X [facility] ERT [id number] Univers 12:12:00 14:00:00 JASE ity of [facility] 2022-03-30 2022-03-30 Emergency [facility] [id number] Univers 12:12:00 14:00:00 Jase S [place] [id number] i ty [facility] [id number] [facility] [id number] [address] 2021-07-08 2021-07-08 Telephone Umair, 1.2.840.1 [id number] Univers 00:00:00 00:00:00 Denise [id number] ity of [id number] [place] .[id number] .[id number] [facility] Center 2021-06-11 2021-06-11 Telephone Luis Enrique, 1.2.840.1 [id number] Univers 00:00:00 00:00:00 August F [id number] ity of 3.412.2.7 [place] .[id number] .[id number] [facility] Center 2021-01-15 2021-01-15 Outpatient ASA MCCOY MDA MDA [id number] 13:37:14 13:37:14 CAMRYN lind 2020-07-04 2020-07-04 Outpatient ASA TURNER MDA MDA [id number] 12:38:42 13:27:27 MILES lind 2020-07-04 2020-07-04 Outpatient ASA HARVEY MDA MDA [id number] 12:06:34 12:06:34 JUANY lind 2020-07-04 2020-07-04 Outpatient ASA CESPEDES MDA MDA [id number] 10:24:19 10:24:19 STEPHANIE grant n 2020-01-04 2020-01-04 Outpatient ASA HARVEY MDA [facility] [id number] 07:35:59 07:35:59 JUANY lind 2019-07-19 2019-07-19 Emergency [facility] [id number] 11:46:40 13:39:00 Jase [place] [id number] [place] 4.2.7.2.686 [place] [id number] 2019-07-19 2019-07-19 Emergency X [facility] ERT [id number] Univers 11:46:40 13:39:00 JASE de oliveira [facility] 2019-07-19 2019-07-19 Orders Doctor [place] [id number] 00:00:00 00:00:00 Only Unassigned, KAREN [id number] [place] [facility] [id number] [id number] Results Test Description Test Time Test Comments Results Result [facility] e Comments RAD, CHEST, 1 2018-09-02 Reason for FINAL REPORT PATIENT VIEW, NON DEPT 14:32:00 Exam:->C50.211 ID: [id number] Clinical History: C50.211 Comparison Study: None Findings: The heart and lungs are within normal limits. A left-sided Port-A-Cath is in place, the tip projecting over the SVC The pleural spaces are clear. Surgical clips project over the right thorax. Degenerative changes are noted. Impression: No active cardiopulmonary disease. Signed: Ramesh Choi MDReport Verified Date/Time: 09/02/2018 14:32:25 Reading Location: [address] Consult Reading Room , TUNNEL CATH 2018-09-02 Reason for FINAL REPORT PATIENT CENTRAL INS W/PORT 14:06:00 Exam:->C50.211 ID: [id number] LEFT C INTERNAL JUGULAR CHEST PORT INSERTION, UNDER FLUOROSCOPY. History: Right breast cancer. Port catheter needed for chemotherapy.. Modality: Sonography and fluoroscopy. Sedation: Versed two mg and fentanyl 125 mcg given intravenously for conscious sedation. Vital signs were monitored throughout the procedure by a nurse, and remained stable. Physician intra-service time was 30 minutes. Toe Trimmer: Steff Approach: Left internal jugular vein Fluoroscopy [...] needle into the right atrium. A 4 Malay micropuncture sheath was placed. A subcutaneous tunnel [...] MDReport Verified Date/Time: 09/02/2018 14:06:01 Reading Location: [facility] Radiology Reading Room
[2022-04-11 19:41] LABS: Barbiturates NEGATIVE (NEGATIVE); Benzodiazepines POSITIVE (NEGATIVE); Cocaine NEGATIVE (NEGATIVE); METHAMPHETAM NEGATIVE (NEGATIVE); Methadone NEGATIVE (NEGATIVE); Opiates POSITIVE (NEGATIVE); Phencyclidine NEGATIVE (NEGATIVE); THC Cannibis NEGATIVE (NEGATIVE)
[2022-04-11 19:51] LABS: Specific Gravity > 1.030 (1.005-1.030); Urine Bacteria 20-50 /HPF (<20); Urine Bilirubin NEGATIVE (Negative); Urine Blood Trace (Negative); Urine Clarity Extremely Turbid (Clear); Urine Color Yellow (Yellow); Urine Glucose 2+ (Negative); Urine Mucus 4+ /HPF (None Seen); Urine Protein 2+ (Negative); Urine RBC 21-50 /HPF (None Seen); Urine Urobilinogen 1+ (Normal); Urine WBC Clump Few /HPF (None Seen)
[2022-04-11] MEDS ORDERED: NA CHLORIDE 0.9% 500 ML ONE (19:57)
--- NOTE | 2022-04-11 20:08 | RAD REPORT ---
EXAM DESCRIPTION: RAD - Chest Single View - 04/11/2022 8:03 pm CLINICAL HISTORY: COUGH COMPARISON: Chest Single View dated 08/04/2021; Chest Single View dated 12/18/2019; Chest Single View dated 07/17/2019; Chest Single View dated 10/04/2017 FINDINGS: Lines: None. Lungs: No evidence of edema or pneumonia. Pleural: No significant pleural effusions or pneumothorax. Cardiac: Mild cardiomegaly. Mediastinum: Within normal limits. Bones: No acute fractures. Other: None IMPRESSION: No acute cardiopulmonary disease.
--- NOTE | 2022-04-11 20:11 | RAD REPORT ---
EXAM DESCRIPTION: CT - Head Brain Wo Cont - 04/11/2022 8:01 pm CLINICAL HISTORY: Mental status change, unknown cause COMPARISON: Head Brain Wo Cont dated 09/30/2015; HEAD BRAIN W O CONTRAST dated 04/09/2013 TECHNIQUE: All CT scans are performed using dose optimization technique as appropriate and may inclu de automated exposure control or mA/KV adjustment according to patient size. FINDINGS: No intracranial hemorrhage, hydrocephalus or extra-axial fluid collection.No areas of brai n edema or evidence of midline shift. Mild chronic small vessel ischemic changes. The paranasal sinuses and mastoids are clear. The calvarium is intact. IMPRESSION: No acute intracranial abnormality.
[2022-04-11 20:21] LABS: Absolute Lymphocytes (CBC) 2.1 K/uL (0.7-4.9); Hematocrit 36.5 % (36.0-45.0); Lymphocytes % 27.2 % (15.3-44.8); MCV 81.4 fL (80-100); MPV 7.2 fL (7.6-11.3); RBC Red Blood Cell Count 4.49 M/uL (3.86-4.86)
[2022-04-11 20:28] LABS: Protime INR 1.14
[2022-04-11] MEDS ORDERED: CEFTRIAXONE 1000 MG/VIAL ONE (20:36)
[2022-04-11] MEDS ORDERED: CIPROFLOXACIN HCL 500 MG TAB ONE (20:36)
[2022-04-11 20:45] LABS: ALT/SGPT 18 U/L (12-78); AST/SGOT 15 U/L (15-37); Albumin 3.6 g/dL (3.4-5.0); Alkaline Phosphatase 85 U/L (45-117); BUN Blood Urea Nitrogen 14 mg/dL (7-18); Bicarbonate 27 mmol/L (21-32); Bilirubin Direct 0.2 mg/dL (0-0.2); Bilirubin Total 0.7 mg/dL (0.2-1.0); Glomerular Filtration Rate 47 ml/min (=/>90); Glucose Level 170 mg/dL (74-106); NT PRO-BNP 94 pg/mL (<125); Potassium 3.4 mmol/L (3.5-5.1); Protein, Total 7.8 g/dL (6.4-8.2); Sodium Level 135 mmol/L (136-145); Troponin High Sensitivity 5.5 pg/mL (<58.9)
--- NOTE | 2022-04-11 21:24 | ER ---
Nurse's Notes [facility] Name: Soledad Cortes Age: 72 yrs Sex: Female : 1950 Arrival Date: 04/11/2022 Time: 16:58 Bed 27 Private MD: Katherine Al F Diagnosis: Visual hallucinations;Other recurrent depressive disorders;Anxiety disorder, unspecified;UTI/ Urinary tract infection, site not specified Presentation: 04/11 17:12 Chief complaint: Patient states: "Im seeing things that are not there, im hallucinating vg1 and I cant remember; you can tell me to do something and I suddenly forget what was just told to me" Hallucinations began on Thursday04/09/22; Pt states lower back pain, denies burning upon urination, also states lower ABD pain for four days. Coronavirus screen: Vaccine status: Patient reports receiving the 2nd dose of the covid vaccine. Client denies travel out of the [place] in the last 14 days. Ebola Screen: Patient negative for fever greater than or equal to 101.5 degrees Fahrenheit, and additional compatible Ebola Virus Disease symptoms. Risk Assessment: Do you want to hurt yourself or someone else? Patient reports no desire to harm self or others. Onset of symptoms was April 09, 2022. 17:12 Method Of Arrival: Ambulatory [facility] 17:12 Acuity: JOHN 2 vg1 17:17 Initial Sepsis Screen: Does the patient meet any 2 criteria? No. Patient's initial vg1 sepsis screen is negative. Does the patient have a suspected source of infection? No. Patient's initial sepsis screen is negative. Triage Assessment: 17:19 General: Appears uncomfortable, Behavior is cooperative. Pain: Complains of pain in vg1 back and abdomen Pain currently is 9 out of 10 on a pain scale. Neuro: Level of Consciousness is awake, alert, obeys commands, Oriented to person, place, time, situation. Respiratory: Airway is patent Respiratory effort is even, unlabored. Historical: - Allergies: 17:17 Codeine; vg1 17:17 Talwin; vg1 17:17 Toradol; vg1 - Home Meds: 17:42 zolpidem 5 mg Oral tab 1 tab once daily [Active]; Xanax Oral [Active]; cyclobenzaprine hb 10 mg Oral tab 1 tab as needed [Active]; lisinopril 40 mg Oral tab 1 tab once daily [Active]; metoprolol tartrate 50 mg Oral tab 1 tab 2 times per day [Active]; bupropion HCl 150 mg Oral Tb24 1 tab once daily [Active]; Naproxen Sodium Oral [Active]; - PMHx: 17:17 breast cancer; CHRONIC LOW BACK PAIN; Diabetes - NIDDM; Hypertension; vg1 17:19 Depressive disorder; Anxiety; vg1 - PSHx: 17:17 back; masectomy; vg1 - Immunization history:: Client reports receiving the 2nd dose of the Covid vaccine. - Social history:: Smoking status: Patient denies any tobacco usage or history of. Screenin:44 Abuse screen: Denies threats or abuse. Denies injuries from another. Nutritional hb screening: No deficits noted. Tuberculosis screening: No symptoms or risk factors identified. Fall Risk None identified. Assessment: 17:44 General: Appears in no apparent distress. Behavior is calm, cooperative. Neuro: Level hb of Consciousness is awake, alert, obeys commands, Oriented to person, place, time, situation. Cardiovascular: Patient's skin is warm and dry. Respiratory: Respiratory effort is even, unlabored, Respiratory pattern is regular, symmetrical. GI: No signs and/or symptoms were reported involving the gastrointestinal system. : No signs and/or symptoms were reported regarding the genitourinary system. EENT: No signs and/or symptoms were reported regarding the EENT system. Derm: Skin is pink, warm \\T\\ dry. Musculoskeletal: No signs and/or symptoms reported regarding the musculoskeletal system. 18:54 Reassessment: Patient appears in no apparent distress at this time. Patient and/or hb family updated on plan of care and expected duration. Pain level reassessed. Patient is alert, oriented x 3, equal unlabored respirations, skin warm/dry/pink. 20:28 Reassessment: Patient appears in no apparent distress at this time. Patient and/or hb family updated on plan of care and expected duration. Pain level reassessed. Patient is alert, oriented x 3, equal unlabored respirations, skin warm/dry/pink. Vital Signs: 17:17 BP 143 / 73; Pulse 80; Resp 15; Temp 97.9; Pulse Ox 100% ; Weight 72.57 kg; Height 5 1 ft. 2 in. (157.48 cm); Pain 9/10; 20:20 BP 148 / 82; Pulse 78; Resp 15; Pulse Ox 99% on R/A; hb 17:17 Body Mass Index 29.26 (72.57 kg, 157.48 cm) 1 ED Course: 16:58 Patient arrived in ED. as 16:59 Katherine Al MD is Private Physician. as 17:17 Triage completed. vg1 17:19 Arm band placed on. vg1 17:22 Juanito Ulloa MD is Attending Physician. [facility] 17:44 Patient has correct armband on for positive identification. hb 18:54 Martha Bain, RN is Primary Nurse. hb 19:40 Inserted saline lock: 20 gauge in left antecubital area, using aseptic technique. Blood hb collected. 19:47 Wood Prater is PHCP. jl9 20:03 Head Brain Wo Cont In Process Unspecified. EDMS 20:04 XRAY Chest (1 view) In Process Unspecified. EDMS 21:23 Louie Eugene MD is Referral Physician. jl9 21:39 CT Stone Protocol In Process Unspecified. EDMS Administered Medications: 20:11 Drug: NS 0.9% 500 ml Route: IV; Rate: bolus; Site: left antecubital; hb 20:47 Drug: Rocephin (cefTRIAXone) 1 grams Route: IV; Rate: per protocol; Site: left hb antecubital; 20:47 Drug: Cipro (ciprofloxacin) 500 mg Route: PO; hb Medication: 17:44 VIS not applicable for this client. hb Outcome: 21:23 Discharge ordered by . [place] 21:52 Patient left the ED. hb Signatures: Dispatcher [employer] EDMS Juanito Ulloa MD MD cha Martinez, Amelia as Martha aBin, RN RN Neisha Shipley RN RN [facility] Wood Prater [id number]
--- NOTE | 2022-04-11 21:25 | EDPHYS ---
Physician Documentation [facility] Name: Soledad Cortes Age: 72 yrs Sex: Female : 1950 Arrival Date: 04/11/2022 Time: 16:58 Bed 27 Private MD: Katherine Al F ED Physician Juanito Ulloa HPI: 04/11 19:02 This 72 yrs old Black Female presents to ER via Ambulatory with complaints of tanna hallucinations. 19:02 The patient presents to the emergency department with anxiety, depression. Onset: The tanna symptoms/episode began/occurred 5 day(s) ago. Past psychiatric history: Prior diagnosis: depression. Associated signs and symptoms: The patient has no apparent associated signs or symptoms. Severity of symptoms: At their worst the symptoms were mild in the emergency department the symptoms are unchanged. The patient has experienced similar episodes in the past, a few times. Historical: - Allergies: 17:17 Codeine; vg1 17:17 Talwin; vg1 17:17 Toradol; vg1 - Home Meds: 17:42 zolpidem 5 mg Oral tab 1 tab once daily [Active]; Xanax Oral [Active]; cyclobenzaprine hb 10 mg Oral tab 1 tab as needed [Active]; lisinopril 40 mg Oral tab 1 tab once daily [Active]; metoprolol tartrate 50 mg Oral tab 1 tab 2 times per day [Active]; bupropion HCl 150 mg Oral Tb24 1 tab once daily [Active]; Naproxen Sodium Oral [Active]; - PMHx: 17:17 breast cancer; CHRONIC LOW BACK PAIN; Diabetes - NIDDM; Hypertension; vg1 17:19 Depressive disorder; Anxiety; vg1 - PSHx: 17:17 back; masectomy; vg1 - Immunization history:: Client reports receiving the 2nd dose of the Covid vaccine. - Social history:: Smoking status: Patient denies any tobacco usage or history of. ROS: 19:03 Constitutional: Negative for fever, chills, and weight loss, Eyes: Negative for injury, tanna pain, redness, and discharge, ENT: Negative for injury, pain, and discharge, Neck: Negative for injury, pain, and swelling, Cardiovascular: Negative for chest pain, palpitations, and edema, Respiratory: Negative for shortness of breath, cough, wheezing, and pleuritic chest pain, Abdomen/GI: Negative for abdominal pain, nausea, vomiting, diarrhea, and constipation, Back: Negative for injury and pain, : Negative for injury, bleeding, discharge, and swelling, MS/Extremity: Negative for injury and deformity, Skin: Negative for injury, rash, and discoloration, Psych: Negative for depression, anxiety, suicide ideation, homicidal ideation, and hallucinations, Allergy/Immunology: Negative for hives, rash, and allergies, Endocrine: Negative for neck swelling, polydipsia, polyuria, polyphagia, and marked weight changes, Hematologic/Lymphatic: Negative for swollen nodes, abnormal bleeding, and unusual bruising. 19:03 Neuro: Positive for HALLUCINATING. Exam: 19:03 Constitutional: This is a well developed, well nourished patient who is awake, alert, tanna and in no acute distress. Head/Face: Normocephalic, atraumatic. Eyes: Pupils equal round and reactive to light, extra-ocular motions intact. Lids and lashes normal. Conjunctiva and sclera are non-icteric and not injected. Cornea within normal limits. Periorbital areas with no swelling, redness, or edema. ENT: Nares patent. No nasal discharge, no septal abnormalities noted. Tympanic membranes are normal and external auditory canals are clear. Oropharynx with no redness, swelling, or masses, exudates, or evidence of obstruction, uvula midline. Mucous membranes moist. Neck: Trachea midline, no thyromegaly or masses palpated, and no cervical lymphadenopathy. Supple, full range of motion without nuchal rigidity, or vertebral point tenderness. No Meningismus. Chest/axilla: Normal chest wall appearance and motion. Nontender with no deformity. No lesions are appreciated. Cardiovascular: Regular rate and rhythm with a normal S1 and S2. No gallops, murmurs, or rubs. Normal PMI, no JVD. No pulse deficits. Respiratory: Lungs have equal breath sounds bilaterally, clear to auscultation and percussion. No rales, rhonchi or wheezes noted. No increased work of breathing, no retractions or nasal flaring. Abdomen/GI: Soft, non-tender, with normal bowel sounds. No distension or tympany. No guarding or rebound. No evidence of tenderness throughout. Back: No spinal tenderness. No costovertebral tenderness. Full range of motion. Skin: Warm, dry with normal turgor. Normal color with no rashes, no lesions, and no evidence of cellulitis. MS/ Extremity: Pulses equal, no cyanosis. Neurovascular intact. Full, normal range of motion. Neuro: Awake and alert, GCS 15, oriented to person, place, time, and situation. Cranial nerves II-XII grossly intact. Motor strength 5/5 in all extremities. Sensory grossly intact. Cerebellar exam normal. Normal gait. Psych: Awake, alert, with orientation to person, place and time. Behavior, mood, and affect are within normal limits. 19:44 ECG was reviewed by the Attending Physician. tanna Vital Signs: 17:17 BP 143 / 73; Pulse 80; Resp 15; Temp 97.9; Pulse Ox 100% ; Weight 72.57 kg; Height 5 vg1 ft. 2 in. (157.48 cm); Pain 9/10; 20:20 BP 148 / 82; Pulse 78; Resp 15; Pulse Ox 99% on R/A; hb 17:17 Body Mass Index 29.26 (72.57 kg, 157.48 cm) vg1 MDM: 17:22 Patient medically screened. tanna 19:05 Differential diagnosis: drug withdrawal. acute psychotic break, depression, psychosis tanna secondary to non-compliance. Data reviewed: vital signs, nurses notes, lab test result(s), EKG, radiologic studies, CT scan. Data interpreted: cardiac monitor technician: rate is 80 beats/min, rhythm is normal sinus rhythm, regular, Pulse oximetry: on room air is 100 %. Test interpretation: by ED physician or midlevel provider: ECG, plain radiologic studies. Counseling: I had a detailed discussion with the patient and/or guardian regarding: the historical points, exam findings, and any diagnostic results supporting the discharge/admit diagnosis, lab results, radiology results, the need for outpatient follow up, for definitive care, a family practitioner, a psychiatrist. 04/11 19:00 Order name: Basic Metabolic Panel; Complete Time: :22 [facility] 04/11 19:00 Order name: CBC with Diff; Complete Time: :22 [facility] 04/11 19:00 Order name: LFT's; Complete Time: :22 [facility] 04/11 19:00 Order name: Magnesium; Complete Time: : [facility] 04/11 19:00 Order name: NT PRO-BNP; Complete Time: : [facility] 04/11 19:00 Order name: PT-INR; Complete Time: : [facility] 04/11 19:00 Order name: Troponin HS; Complete Time: : [facility] 04/11 19:00 Order name: XRAY Chest (1 view); Complete Time: 21: [facility] 04/11 19:00 Order name: CT Head Brain wo Cont [facility] 04/11 19:00 Order name: UDS; Complete Time: 20: [facility] 04/11 19:00 Order name: Asprin; Complete Time: : [facility] 04/11 19:00 Order name: Tylenol Level; Complete Time: : [facility] 04/11 19:47 Order name: Urinalysis; Complete Time: 20:03 [facility] 04/11 19:54 Order name: Urine Culture [facility] 04/11 19:00 Order name: EKG; Complete Time: 19: [facility] 04/11 19:00 Order name: Cardiac monitoring; Complete Time: 20:29 [facility] 04/11 19:00 Order name: EKG - Nurse/Tech; Complete Time: 20:29 [facility] 04/11 19:00 Order name: IV Saline Lock; Complete Time: 20:29 [facility] 04/11 19:00 Order name: Labs collected and sent; Complete Time: 20:29 [facility] 04/11 19:00 Order name: O2 Per Protocol; Complete Time: 20:29 [facility] 04/11 19:00 Order name: O2 Sat Monitoring; Complete Time: 20:29 [facility] 04/11 19:00 Order name: Urine Dipstick-Ancillary (obtain specimen); Complete Time: 19: [facility] 04/11 19:04 Order name: Head Brain Wo Cont; Complete Time: : [facility] 04/11 20:04 Order name: CT Stone Protocol [facility] EC:44 Rate is 79 beats/min. Rhythm is regular. QRS Ethel is Normal. AL interval is normal. QRS tanna interval is normal. QT interval is normal. No Q waves. T waves are Normal. No ST changes noted. Clinical impression: NSR w/ Non-specific ST/T Changes, LVH, and No evidence of ischemia. Interpreted by me. Reviewed by me. Administered Medications: 20:11 Drug: NS 0.9% 500 ml Route: IV; Rate: bolus; Site: left antecubital; hb 20:47 Drug: Rocephin (cefTRIAXone) 1 grams Route: IV; Rate: per protocol; Site: left hb antecubital; 20:47 Drug: Cipro (ciprofloxacin) 500 mg Route: PO; hb Disposition Summary: 04/11/22 21:23 Discharge Ordered Location: Home jl9 Problem: new jl9 Symptoms: have improved jl9 Condition: Stable jl9 Diagnosis - Visual hallucinations jl9 - Other recurrent depressive disorders jl9 - Anxiety disorder, unspecified jl9 - UTI/ Urinary tract infection, site not specified jl9 Followup: tanna - With: Private Physician - When: 2 - 3 days - Reason: Recheck today's complaints, Continuance of care, Re-evaluation by your physician Followup: tanna - With: - When: 2 - 3 days - Reason: Recheck today's complaints, Re-evaluation by your physician Discharge Instructions: - Discharge Summary Sheet tanna - Dysuria tanna - Managing Depression, Adult tanna - Managing Anxiety, Adult tanna - Urinary Tract Infection, Adult tanna - Urinary Tract Infection, Adult, [id number] [facility] Forms: - Medication Reconciliation Form jl9 - Thank You Letter jl9 - Antibiotic Education jl9 - Prescription Opioid Use jl9 Prescriptions: - Cipro 250 mg Oral Tablet - take 1 tablet by ORAL route every 12 hours; 14 tablet; Refills: 0, Product tanna Selection Permitted - Bactrim DS 800-160 mg Oral Tablet - take 1 tablet by ORAL route every 12 hours for 5 days; 10 tablet; Refills: 0, tanna Product Selection Permitted Signatures: Dispatcher [employer] Juanito Melgar MD MD cha Baxter, Heather, RN RN Neisha Majano RN RN [facility] jl9
--- NOTE | 2022-04-11 21:53 | RAD REPORT ---
[facility] DESCRIPTION: [facility] - 04/11/2022 9:37 pm CLINICAL HISTORY: Flank pain, kidney stone suspected COMPARISON: <Comparisons> TECHNIQUE: CT of the abdomen and pelvis was performed. All CT scans are performed using dose optimization technique as appropriate and may include automated exposure control or mA/KV adjustment according to patient size. FINDINGS: Lower chest: No acute abnormality. Liver: No acute abnormality or suspicious lesions. Biliary: No biliary ductal dilatation. Cholecystectomy . Stomach: No significant focal abnormality. Duodenum: No significant focal abnormality. Pancreas: No significant abnormality. Spleen: No significant abnormality. Adrenal: No suspicious lesions. Kidney/ureter: No hydronephrosis. No renal calculi. Retroperitoneum: No retroperitoneal adenopathy. Vascular: No aneurysm. Bowel: No significant focal abnormality. Normal appendix. Peritoneum: No ascites or free air. Bladder: Circumferential bladder wall thickening. Reproductive: No adnexal masses. Bones: No acute fracture. Disc height loss at L4-5. Other: n/a IMPRESSION: No acute intra-abdominal or pelvic finding.
[2022-04-11 22:49] VITALS: TEMP 97.9
[2022-04-11 22:55] VITALS: BP 148/82; O2SAT 99
--- NOTE | 2022-04-12 19:11 | EKG ---
Test Date: 2022-04-11 Test Time: 19:36:11 Laboratory Administrative Director: YAMILE MEASUREMENT RESULTS: Intervals: Rate: 79 OK: 216 QRSD: 88 QT: 362 QTc: 415 [place]: P: 38 OK: 216 QRS: -11 T: -2 INTERPRETIVE STATEMENTS: Sinus rhythm with 1st degree AV block Possible Left atrial enlargement Left ventricular hypertrophy Nonspecific T wave abnormality Abnormal ECG Compared to ECG 08/04/2021 17:40:25 First degree AV block now present Left ventricular hypertrophy now present T-wave abnormality still present Electronically Signed On 04-12-22 19:10:18 ACQUISITIONS EDITOR by Modesto Vela
== END 2022-04-11 21:52 | disposition home or self-care (01) ==
LOC: ER 16:57
DX: F33.8 Other recurrent depressive disorders (principal); F41.9 Anxiety disorder, unspecified; N39.0 Urinary tract infection, site not specified; E11.9 Type 2 diabetes mellitus without complications; I10 Essential (primary) hypertension; Z88.5 Allergy status to narcotic agent; Z88.8 Allergy status to other drugs, medicaments and biological substances
CPT/HCPCS: 93005; 87088; 85025; 81001; 87086; 80048; 36415; 83735; 80329 ×2; 85610; 80076; 84484; 83880; 80307; 70450; 76377; 74176; 71045; 96374; 99284; J7040

== ENCOUNTER 2022-04-21 12:24 | Emergency (ER) | payer OTHER ==
[2022-04-21 15:25] LABS: Absolute Lymphocytes (CBC) 2.2 K/uL (0.7-4.9); Hematocrit 37.1 % (36.0-45.0); Lymphocytes % 34.7 % (15.3-44.8); MCV 80.3 fL (80-100); MPV 7.5 fL (7.6-11.3); RBC Red Blood Cell Count 4.62 M/uL (3.86-4.86)
[2022-04-21 15:34] LABS: Specific Gravity 1.021 (1.005-1.030); Urine Bilirubin NEGATIVE (Negative); Urine Blood Negative (Negative); Urine Clarity Clear (Clear); Urine Color Light-Yellow (Yellow); Urine Glucose NEGATIVE (Negative); Urine Mucus Slight /HPF (None Seen); Urine Protein TRACE (Negative); Urine RBC <5 /HPF (None Seen); Urine Urobilinogen Normal (Normal); Urine pH 7.5 (5.0-7.0)
[2022-04-21 15:42] LABS: Albumin 3.9 g/dL (3.4-5.0); Bilirubin Total 0.8 mg/dL (0.2-1.0); Potassium 4.1 mmol/L (3.5-5.1); Protein, Total 8.2 g/dL (6.4-8.2)
--- NOTE | 2022-04-21 16:18 | ER ---
Nurse's Notes [facility] Name: Soledad Cortes Age: 72 yrs Sex: Female : 1950 Arrival Date: 04/21/2022 Time: 12:30 Bed IW2 Private MD: Katherine Al F Diagnosis: Paresthesia of skin;Anemia, unspecified;Visual hallucinations Presentation: 04/21 14:29 Chief complaint: Patient states: "I'm hallucinating. I'm seeing a bunch of little pin ss worms on my skin." Pt reports that this began Thursday. Coronavirus screen: Client denies travel out of the [place] in the last 14 days. Ebola Screen: Patient denies exposure to infectious person. Patient denies travel to an Ebola-affected area in the 21 days before illness onset. Initial Sepsis Screen: Does the patient meet any 2 criteria? No. Patient's initial sepsis screen is negative. Does the patient have a suspected source of infection? No. Patient's initial sepsis screen is negative. Risk Assessment: Do you want to hurt yourself or someone else? Patient reports no desire to harm self or others. Onset of symptoms was April 18, 2022. 14:29 Method Of Arrival: Wheelchair ss 14:29 Acuity: JOHN 3 ss Historical: - Allergies: 14:30 Codeine; ss 14:30 Talwin; ss 14:30 Toradol; ss - PMHx: 14:30 Anxiety; Diabetes - NIDDM; Hypertension; depressive disorder; breast cancer; CHRONIC ss LOW BACK PAIN; - PSHx: 14:30 back; masectomy; ss Vital Signs: 14:30 BP 141 / 93; Pulse 93; Resp 18; Temp 98.5(O); Pulse Ox 100% on R/A; Weight 72.57 kg; ss Height 5 ft. 2 in. (157.48 cm); Pain 0/10; 14:30 Body Mass Index 29.26 (72.57 kg, 157.48 cm) ED Course: 12:30 Patient arrived in ED. rg4 12:30 Katherine Al MD is Private Physician. rg4 14:06 Andrew Stover DO is Attending Physician. ms3 14:30 Triage completed. ss 14:30 Arm band placed on right wrist. ss 15:30 Inserted saline lock: 22 gauge in left hand, using aseptic technique. ,using aseptic ss technique. Insertion by RN Blood collected. 16:17 Katherine Al MD is Referral Physician. ms3 16:34 No provider procedures requiring assistance completed. IV discontinued, intact, ss bleeding controlled, No redness/swelling at site. Pressure dressing applied. Administered Medications: No medications were administered Outcome: 16:18 Discharge ordered by . ms3 16:34 Discharged to home ambulatory. ss 16:34 Condition: good 16:34 Discharge instructions given to patient, Instructed on discharge instructions, follow up and referral plans. Demonstrated understanding of instructions, follow-up care. 16:35 Patient left the ED. ss Signatures: Kathy Bertrand RN RN Geovanna Mayen rg4 Andrew Stover DO DO ms3
--- NOTE | 2022-04-21 16:18 | EDPHYS ---
Physician Documentation [facility] Name: Soledad Cortes Age: 72 yrs Sex: Female : 1950 Arrival Date: 04/21/2022 Time: 12:30 Bed IW2 Private MD: Katherine Al F ED Physician Andrew Stover HPI: 04/21 16:19 This 72 yrs old Black Female presents to ER via Wheelchair with complaints of ms3 Hallucinations. 16:19 72-year-old female with past medical history of anxiety, diabetes, hypertension, ms3 depressive disorder presents for burning of the skin on her hands. Patient states she also sees worms and feels like they are crawling under her skin. Patient states her symptoms began 2 weeks ago. Patient denies alleviating or inciting factors. Patient states the discomfort is a 9/10 and described as stinging. Historical: - Allergies: 14:30 Codeine; ss 14:30 Talwin; ss 14:30 Toradol; ss - PMHx: 14:30 Anxiety; Diabetes - NIDDM; Hypertension; depressive disorder; breast cancer; CHRONIC ss LOW BACK PAIN; - PSHx: 14:30 back; masectomy; ss ROS: 16:19 Constitutional: Negative for fever, and chills. ENT: Negative for injury, pain, and ms3 discharge, Neck: Negative for injury, pain, and swelling, Cardiovascular: Negative for chest pain, and palpitations. Respiratory: Negative for shortness of breath, cough, wheezing, and pleuritic chest pain, Abdomen/GI: Negative for abdominal pain, nausea, vomiting, diarrhea, and constipation, MS/Extremity: Negative for injury and deformity. 16:19 Skin: Positive for paresthesias. 16:19 All other systems are negative. 16:19 Psych: Positive for sensation of worms crawling in her skin. Patient states she has ms3 seen the worms . Exam: 16:19 Constitutional: This is a well developed, well nourished patient who is awake, alert, ms3 and in no acute distress. Head/Face: Normocephalic, atraumatic. Eyes: Pupils equal round and reactive to light, extra-ocular motions intact. Lids and lashes normal. Conjunctiva and sclera are non-icteric and not injected. Periorbital areas with no swelling, redness, or edema. Neck: Trachea midline, no cervical lymphadenopathy. Supple, full range of motion without nuchal rigidity, or vertebral point tenderness. No Meningismus. Chest/axilla: Normal chest wall appearance and motion. Nontender with no deformity. Cardiovascular: Regular rate and rhythm with a normal S1 and S2. No gallops, murmurs, or rubs. Normal PMI, no JVD. No pulse deficits. Respiratory: Lungs have equal breath sounds bilaterally, clear to auscultation and percussion. No rales, rhonchi or wheezes noted. No increased work of breathing, no retractions or nasal flaring. Abdomen/GI: Soft, non-tender, with normal bowel sounds. No distension or tympany. No guarding or rebound. No evidence of tenderness throughout. Skin: Warm, dry with normal turgor. Normal color with no rashes, no lesions, and no evidence of cellulitis. MS/ Extremity: Pulses equal, no cyanosis. Neurovascular intact. Full, normal range of motion. Neuro: Awake and alert, GCS 15, oriented to person, place, time, and situation. Cranial nerves II-XII grossly intact. Motor strength 5/5 in all extremities. Sensory grossly intact. Cerebellar exam normal. Psych: Awake, alert, with orientation to person, place and time. Behavior, mood, and affect are within normal limits. Vital Signs: 14:30 BP 141 / 93; Pulse 93; Resp 18; Temp 98.5(O); Pulse Ox 100% on R/A; Weight 72.57 kg; ss Height 5 ft. 2 in. (157.48 cm); Pain 0/10; 14:30 Body Mass Index 29.26 (72.57 kg, 157.48 cm) ss MDM: 14:18 Patient medically screened. ms3 16:21 Differential Diagnosis Uremia vs UTI vs Hallucinations. Data reviewed: vital signs, ms3 nurses notes, lab test result(s), and as a result, I will discharge patient. Counseling: I had a detailed discussion with the patient and/or guardian regarding: the historical points, exam findings, and any diagnostic results supporting the discharge/admit diagnosis, lab results, the need for outpatient follow up, to return to the emergency department if symptoms worsen or persist or if there are any questions or concerns that arise at home. Special discussion: I discussed with the patient/guardian in detail that at this point there is no indication for admission to the hospital. It is understood, however, that if the symptoms persist or worsen the patient needs to return immediately for re-evaluation. ED course: Discussed labs with patient. Patient understands agrees with plan. Patient to follow-up with her primary care physician in 2 to 3 days. All questions were answered. Return precautions discussed include worsening symptoms, or any other concerns. On reevaluation patient is alert and oriented x4, in no apparent distress, nontoxic appearing. 04/21 14:19 Order name: CBC with Diff; Complete Time: 16:01 ms3 04/21 14:19 Order name: CMP; Complete Time: 16:01 ms3 04/21 14:19 Order name: Urine Dipstick-Ancillary (obtain specimen); Complete Time: 16:22 ms3 04/21 14:19 Order name: Urinalysis; Complete Time: 16:01 ms3 Administered Medications: No medications were administered Disposition Summary: 04/21/22 16:18 Discharge Ordered Location: Home ms3 Condition: Stable ms3 Diagnosis - Paresthesia of skin ms3 - Anemia, unspecified ms3 - Visual hallucinations ms3 Followup: ms3 - With: Katherine Al MD - When: 2 - 3 days - Reason: Recheck today's complaints Discharge Instructions: - Discharge Summary Sheet ms3 - Anemia ms3 - Paresthesia ms3 Forms: - Medication Reconciliation Form ms3 - Thank You Letter ms3 - Antibiotic Education ms3 - Prescription Opioid Use ms3 Signatures: Dispatcher [employer] Kathy Sanchez RN RN Andrew Ang DO DO ms3
[2022-04-21 17:04] VITALS: BP 141/93; TEMP 98.5; O2SAT 100
== END 2022-04-21 16:35 | disposition home or self-care (01) ==
LOC: ER 12:24
DX: R44.1 Visual hallucinations (principal); R20.2 Paresthesia of skin; D64.9 Anemia, unspecified; I10 Essential (primary) hypertension; Z88.5 Allergy status to narcotic agent
CPT/HCPCS: 36415; 80053; 81001; 85025; 99283

== ENCOUNTER 2024-03-31 10:29 | Emergency (ER) | payer OTHER ==
--- OUTSIDE RECORDS SUMMARY | 2024-03-31 10:32 | XMS REPORT | Clinical Summary ---
Author Name Unknown Organization [facility] Address [address] [place] [address] Care Team Providers Care Dog Trainer Name Role Phone Padma Nguyen MD Unavailable [phone] Peter Carlin MD Primary Care Provider [phone] Katherine Al MD Unavailable [phone] Min Osborn MD Unavailable Nawaf Delgadillo MD Unavailable Nawaf Delgadillo MD Unavailable Amelia Muller MD Unavailable Allergies Active Allergy Reactions Criticality Noted Date Comments Antiseptic Solution 09/01/2018 "surgical scrub" Chlorhexidin-Isopropyl Alcohol Rash Low 09/06/2018 Codeine Nausea And Vomiting 02/05/2016 Ketorolac Nausea And Vomiting 02/05/2016 Pentazocine Lactate Nausea And Vomiting 019 Talwin Compound Nausea And Vomiting 02/05/2016 Medications Medication Sig Dispensed Refills Start Date End Date Status HYDROcodone-acetam inophen (NORCO) 7.5 mg-325 mg per tablet TAKE 1 TABLET BY MOUTH 4 TIMES DAILY MAY MAKE DROWSY 0 11/11/2017 Active meloxicam (MOBIC) 15 mg tablet TAKE 1 TABLET BY MOUTH WITH FOOD ONCE DAILY DO NOT TAKE ASPIRIN 0 11/11/2017 Active cyclobenzaprine (FLEXERIL) 10 mg tablet TAKE 1 TABLET BY MOUTH 2 TIMES DAILY NEEDED MAY MAKE DROWSY 0 11/11/2017 Activ e lisinopril (PRINIVIL,ZESTRIL) 20 mg tablet Take 20 mg by mouth. Ac tive amLODIPine (NORVASC) 5 mg tablet Take 5 mg by mouth. Activ e gabapentin (NEURONTIN) 300 mg capsule 3 (three) times a day. 0 07/28/2018 Ac tive BASAGLAR KWIKPEN U-100 INSULIN 100 unit/mL (3 mL) insulin pen INJECT 20 UNITS SUBCUTANEOUSLY ONCE DAILY 0 11/11/2018 Active metoprolol tartrate (LOPRESSOR) 50 mg tablet Take 50 mg by mouth at bedtime. 0 12/02/2018 Active famotidine (PEPCID) 20 mg tablet Take 20 mg by mouth daily. 12/27/2019 Active Active Problems Patient Care Coordination No te Formatting of this note migh t be different from the original. Pt allergic to chlorahexidine. Needs soap and water for port access. 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 05/26/2018 Cancer Staging:Clinical stage from 05/26/2018:Stage IB(cT1c, cN0, cM0, G3, ER+, GA-, HER2-) - Signed by Peter Carlin MD on 05/26/2018 Pathologic stage from 08/19/2018:Stage IIA(pT2, pN0, cM0, G3, ER+, GA-, HER2-) - Signed by Peter Carlin MD on 08/19/2018 Lower back injury 05/25/2006 Chronic back pain Diabetes mellitus type 2 without retinopathy Hypertension Insomnia Narcotic drug user Overview: Managed by YULISSA Colon Surgical History Surgery Date Site/Laterality Comments TUBAL LIGATION GANGLION CYST EXCISION Bilateral LAMINECTOMY Twice Medical History Medical History Date Comments Hypertension Diabetes mellitus type 2 wit hout retinopathy Lower back injury 2006 Insomnia Chronic back pain Narcotic drug user Managed by YULISSA Bui Family History Medical History Relation Name Comments Colon cancer Maternal Uncle Colon cancer Mother Relation Name Status Comments Maternal Uncle Mother Social History Tobacco Use Types Packs/Day Years Used Date Smoking Tobacco: Never Smokeless Tobacco: Never Alcohol Use Standard Drinks/Week Comments No 0 (1 standard drink = 0.6 oz pur e alcohol) Sex and Gender Information Value Date Recorded Sex Assigned at Female 12/29/2019 6:20 PM CDT Gender Identity Female 12/29/2019 6:20 PM CDT Sexual Orientation Straight 12/29/2019 6: 20 PM CDT Job Start Date Occupation Industry Not on file Not on file Not on file Obstetrics History Para Term AB IAB SAB Ectopic Multiple Livin g Live Births 2 1 1 Date Outcome GA Total Labor Labor/2nd/3rd Weight Sex Type Anes PTL Shelby A1 A5 Name Clin Para AB Plan of Treatment Health Maintenance Due Date Last Done Comments Pneumococcal Vaccine: 65+ Ye ars (1 of 1 - PCV) 02/06/2017 COVID-19 Vaccine ( season) 01/24/202411/2020, 07/01/2020 Influenza Vaccine (#1) 2024 Care Teams Dog Trainer Relationship Specialty Start Date End Date Padma Nguyen MD [address] [place] [id number] PCP - External Referring Obstetrics/Gynecology 05/04/18 Peter Carlin MD [address] [place] [phone] [email or web address] PCP - General Breast Surgery 05/24/18 Katherine Al MD [address] [place] [phone] [email or web address] Internal Medicine 08/23/18 Min Osborn MD [address] [address] [place] [phone] Anesthesiology 08/23/18 Nawaf Delgadillo MD [address] [place] [address] [place] [address] [email or web address] Physician Radiation Oncology 11/24/18 Nawaf Delgadillo MD [address] [place] [address] [place] [address] [email or web address] [email or web address] Oncology 03/01/19 Amelia Muller MD [address] [place] [phone] [email or web address] Consulting Physician Breast Medical Oncology 08/23/18
--- NOTE | 2024-03-31 10:59 | EDPHYS ---
Physician Documentation [facility] Name: Soledad Cortes Age: 74 yrs Sex: Female : 1950 Arrival Date: 03/31/2024 Time: 10:29 Bed 11 Private MD: ED Physician Aldo Merchant HPI: 03/31 10:56 This 74 yrs old Black Female presents to ER via Ambulatory with complaints of Eye rn Problem. 10:56 The patient is experiencing matting or discharge, tearing, The patient sustained None. rn to the right eye, caused by an unknown mechanism. Onset: The symptoms/episode began/occurred 2 day(s) ago. Aggravated by nothing. Alleviated by nothing. Severity of symptoms: At their worst the symptoms were mild in the emergency department the symptoms are unchanged. The patient has not experienced similar symptoms in the past. Historical: - Allergies: 10:43 Codeine; ll1 10:43 Talwin; ll1 10:43 Toradol; ll1 - PMHx: 10:43 Anxiety; breast cancer; CHRONIC LOW BACK PAIN; depressive disorder; Diabetes - NIDDM; ll1 Hypertension; - PSHx: 10:43 back; masectomy; ll1 - Immunization history:: Adult Immunizations up to date. - Social history:: Smoking status: Patient denies any tobacco usage or history of. - Family history:: not pertinent. - Hospitalizations: : No recent hospitalization is reported. ROS: 10:56 Constitutional: Negative for fever, chills, and weight loss, Eyes: Positive for right rn eye redness and tearing Exam: 10:56 Constitutional: This is a well developed, well nourished patient who is awake, alert, rn and in no acute distress. Eyes: Mild erythema right eye, no foreign body, no lesions, conjunctival injection noted Vital Signs: 10:44 BP 172 / 82; Pulse 91; Resp 17; Temp 98; Pulse Ox 98% ; Weight 72.57 kg; Height 5 ft. 2 ll1 in. ; Pain 7/10; 10:44 Body Mass Index 29.26 (72.57 kg, 157.48 cm) ll1 10:44 Pain Scale: Adult ll1 MDM: 10:42 Medical Screening Exam initiated rn 10:56 Differential diagnosis: Data reviewed: vital signs, nurses notes, and as a result, I rn will discharge patient. Counseling: I had a detailed discussion with the patient and/or guardian regarding the historical points, exam findings, and any diagnostic results supporting the discharge/admit diagnosis, the need for outpatient follow up, to return to the emergency department if symptoms worsen or persist or if there are any questions or concerns that arise at home. Special discussion: I discussed with the patient/guardian in detail that at this point there is no indication for admission to the hospital. It is understood, however, that if the symptoms persist or worsen the patient needs to return immediately for re-evaluation. Administered Medications: No medications were administered Disposition Summary: 03/31/24 10:58 Discharge Ordered Notes: Location: Home rn Problem: new rn Symptoms: are unchanged rn Condition: Stable rn Diagnosis - Unspecified acute conjunctivitis, right eye rn Followup: rn - With: Private Physician - When: As needed - Reason: Recheck today's complaints, Re-evaluation by your physician Discharge Instructions: - Discharge Summary Sheet rn - Bacterial Conjunctivitis, Adult rn Forms: - Medication Reconciliation Form rn - Antibiotic purchasing intern - Prescription Opioid Use rn - Patient Portal Instructions rn - Leadership Thank You Letter rn Prescriptions: - Vigamox 0.5 % Ophthalmic Drops - instill 1 drop OPHTHALMIC route every 8 hours for 7 days; 5 milliliter; rn Refills: 0, Product Selection Permitted Signatures: Aldo Merchant MD MD rn Lewis, Lynsay, RN RN ll1
--- NOTE | 2024-03-31 10:59 | ER ---
Nurse's Notes [facility] Name: Soledad Cortes Age: 74 yrs Sex: Female : 1950 Arrival Date: 03/31/2024 Time: 10:29 Bed 11 Private MD: Diagnosis: Unspecified acute conjunctivitis, right eye Presentation: 03/31 10:44 Chief complaint: Patient states: R eye red, irritated, pain since Thursday. Coronavirus ll1 screen: Client denies travel out of the [place] in the last 14 days. At this time, the client does not indicate any symptoms associated with coronavirus-19. Ebola Screen: Patient denies travel to an Ebola-affected area in the 21 days before illness onset. Initial Sepsis Screen: Does the patient meet any 2 criteria? No. Patient's initial sepsis screen is negative. Does the patient have a suspected source of infection? No. Patient's initial sepsis screen is negative. Risk Assessment: Do you want to hurt yourself or someone else? Patient reports no desire to harm self or others. Onset of symptoms was March 29, 2024. 10:44 Method Of Arrival: Ambulatory ll1 10:44 Acuity: JOHN 4 ll1 Historical: - Allergies: 10:43 Codeine; ll1 10:43 Talwin; ll1 10:43 Toradol; ll1 - PMHx: 10:43 Anxiety; breast cancer; CHRONIC LOW BACK PAIN; depressive disorder; Diabetes - NIDDM; ll1 Hypertension; - PSHx: 10:43 back; masectomy; ll1 - Immunization history:: Adult Immunizations up to date. - Social history:: Smoking status: Patient denies any tobacco usage or history of. - Family history:: not pertinent. - Hospitalizations: : No recent hospitalization is reported. Screenin:06 Abuse screen: Denies threats or abuse. Denies injuries from another. Nutritional ss screening: No deficits noted. Tuberculosis screening: Never had TB. Assessment: 11:06 General: Appears in no apparent distress. comfortable, Behavior is calm, cooperative. ss Neuro: Level of Consciousness is awake, alert, obeys commands, Oriented to person, place, time, situation. Respiratory: Airway is patent Respiratory effort is even, unlabored, Respiratory pattern is regular, symmetrical. GI: No signs and/or symptoms were reported involving the gastrointestinal system. EENT: Reports redness noted to R eyes. Pt also c/o itching. Derm: Skin is pink, warm \T\ dry. normal. Vital Signs: 10:44 BP 172 / 82; Pulse 91; Resp 17; Temp 98; Pulse Ox 98% ; Weight 72.57 kg; Height 5 ft. 2 ll1 in. ; Pain 7/10; 10:44 Body Mass Index 29.26 (72.57 kg, 157.48 cm) ll1 10:44 Pain Scale: Adult ll1 ED Course: 10:34 Patient arrived in ED. mr 10:42 Aldo Merchant MD is Attending Physician. rn 10:43 Arm band placed on Patient placed in an exam room, on a stretcher. ll1 10:44 Triage completed. ll1 11:06 Patient has correct armband on for positive identification. ss 11:06 No provider procedures requiring assistance completed. Patient did not have IV access ss during this emergency room visit. Administered Medications: No medications were administered Medication: 11:06 VIS not applicable for this client. ss Outcome: 10:58 Discharge ordered by . rn 11:06 Discharged to home ambulatory, ss 11:06 Condition: good 11:06 Discharge instructions given to patient, Instructed on discharge instructions, follow up and referral plans. medication usage, Demonstrated understanding of instructions, follow-up care, medications, Prescriptions given X 1, 11:08 Patient left the ED. ss Signatures: Ria Werner, Manpreet Reg mr Aldo Merchant MD MD rn Blanchard, Shelby, RN RN ss Lewis, Lynsay, RN RN 1
[2024-03-31 11:13] VITALS: BP 172/82; TEMP 98; O2SAT 98
== END 2024-03-31 11:08 | disposition home or self-care (01) ==
LOC: ER 10:29
DX: H10.31 Unspecified acute conjunctivitis, right eye (principal)
CPT/HCPCS: 99283

== ENCOUNTER 2024-04-28 13:18 | Emergency (ER) | payer OTHER ==
--- OUTSIDE RECORDS SUMMARY | 2024-04-28 13:21 | XMS REPORT | Clinical Summary ---
Author Name Unknown Organization [facility] Address [address] [place] [address] Care Team Providers Care [employer] Specialists Name Role Phone Padma Nguyen MD Unavailable [phone] Peter Carlin MD Primary Care Provider [phone] Katherine Al MD Unavailable [phone] Min Osborn MD Unavailable [phone] Nawaf Delgadillo MD Unavailable Nawaf Delgadillo MD Unavailable Amelia Muller MD Unavailable Allergies Active Allergy Reactions Criticality Noted Date Comments Antiseptic Solution 09/01/2018 "surgical scrub" Chlorhexidin-Isopropyl Alcohol Rash Low 09/06/2018 Codeine Nausea And Vomiting 02/05/2016 Ketorolac Nausea And Vomiting 02/05/2016 Pentazocine Lactate Nausea And Vomiting 019 Talwin Compound Nausea And Vomiting 02/05/2016 Medications * This document contains information received from the source organization and may not represent a complete record from that organization. HYDROcodone-ac etaminophen (NORCO) 7.5 mg-325 mg per tablet TAKE 1 TABLET BY MOUTH 4 TIMES DAILY MAY MAKE DROWSY 0 8 Active meloxicam (MOBIC) 15 mg tablet TAKE 1 TABLET BY MOUTH WITH FOOD ONCE DAILY DO NOT TAKE ASPIRIN 0 8 Active cyclobenzaprin e (FLEXERIL) 10 mg tablet TAKE 1 TABLET BY MOUTH 2 TIMES DAILY NEEDED MAY MAKE DROWSY 0 8 Active lisinopril (PRINIVIL,ZEST RIL) 20 mg tablet Take 20 mg by mouth. Active amLODIPine (NORVASC) 5 mg tablet Take 5 mg by mouth. Active gabapentin (NEURONTIN) 300 mg capsule 3 (three) times a day. 0 9 Active BASAGLAR KWIKPEN U-100 INSULIN 100 unit/mL (3 mL) insulin pen INJECT 20 UNITS SUBCUTANEOUSLY ONCE DAILY 0 9 Active metoprolol tartrate (LOPRESSOR) 50 mg tablet Take 50 mg by mouth at bedtime. 0 9 Active famotidine (PEPCID) 20 mg tablet Take 20 mg by mouth daily. 0 Active Active Problems Patient Care Coordination No te Formatting of this note migh t be different from the original. Pt allergic to chlorahexidine. Needs soap and water for port access. 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 Cody Aguilar, YULISSA Surgical History Surgery Date Site/Laterality Comments TUBAL LIGATION GANGLION CYST EXCISION Bilateral LAMINECTOMY Twice Medical History Medical History Date Comments Hypertension Diabetes mellitus type 2 wit hout retinopathy Lower back injury 2006 Insomnia Chronic back pain Narcotic drug user Managed by Dr German Aguilar [place] Family History Medical History Relation Name Comments Colon cancer Maternal Uncle Colon cancer Mother Relation Name Status Comments Maternal Uncle Mother Social History Tobacco Use Types Packs/Day Years Used Date Smoking Tobacco: Never Smokeless Tobacco: Never Alcohol Use Standard Drinks/Week Comments No 0 (1 standard drink = 0.6 oz pur e alcohol) Comments No Sex and Gender Information Value Date Recorded Sex Assigned at Female 12/29/2019 6:20 PM CDT Legal Sex Female 8:37 AM RECEIVING COORDINATOR Gender Identity Female 12/29/2019 6:20 PM CDT Sexual Orientation Straight 12/29/2019 6: 20 PM CDT Occupation Industry Job Start Date Job End Date disabled Not on file Not on file Not [...] season) 01/24/202411/2020, 07/01/2020 Influenza Vaccine (#1) 2024 Insurance MEDICARE PPO [employer] MEDICARE PPO MEDICARE PPO Care Teams [employer] Specialists Relationship Specialty Start Date End Date Padma Nguyen MD [address] [place] [id number] [email or web address] PCP - External Referring Obstetrics/Gynecology 05/04/18 Peter Carlin MD [address] [place] [phone] [email or web address] PCP - General Breast Surgery 05/24/18 Katherine Al MD [address] [place] [phone] [email or web address] Internal Medicine 08/23/18 Min Osborn MD [id number] [place] [address] Anesthesiology 08/23/18 Nawaf Delgadillo MD [address] [place] [address] [email or web address] [email or web address] Radiation Oncology 11/24/18 Nawaf Delgadillo MD [address] [place] [address] [email or web address] [email or web address] Oncology 03/01/19 Amelia Muller MD [address] [place] [phone] [email or web address] Consulting Physician Breast Medical Oncology 08/23/18
[2024-04-28 14:39] LABS: Absolute Eosinophils 0.2 K/uL (0-0.5); Absolute Lymphocytes (CBC) 1.4 K/uL (0.7-4.9); Absolute Monocytes 0.5 K/uL (0.1-1.3); Basophils % 0.6 % (0-1.3); Eosinophils % 2.8 % (0-4.4); Hematocrit 37.6 % (36.0-45.0); Hemoglobin 11.8 g/dL (12.0-15.0); Lymphocytes % 19.8 % (15.3-44.8); MCHC 31.3 g/dL (32.0-36.0); MCV 82.9 fL (80-100); MPV 8.2 fL (7.6-11.3); Monocytes % 7.1 % (3.3-12.3); Neutrophils % 69.7 % (41.7-73.7); Platelets 255 thou/uL (152-406); RBC Red Blood Cell Count 4.53 M/uL (3.86-4.86); Red Cell Distribution Width 14.2 % (12.1-15.2)
[2024-04-28 14:43] LABS: PT Prothrombin Time 11.8 SECONDS (9.4-12.5); Protime INR 1.06
[2024-04-28 14:57] LABS: ALT/SGPT < 14 U/L (13-56); AST/SGOT < 10 U/L (15-37); Albumin 3.3 g/dL (3.4-5.0); Albumin/Globulin Ratio 0.8 (1.1-1.8); Alkaline Phosphatase 108 U/L (45-117); Anion Gap 7.4 mEq/L (5.0-15.0); BUN Blood Urea Nitrogen 13 mg/dL (7-18); Bicarbonate 27 mEq/L (21-32); Bilirubin Direct 0.2 mg/dL (0-0.2); Bilirubin Indirect, Calculated 0.4 mg/dL (0.2-0.8); Bilirubin Total 0.6 mg/dL (0.2-1.0); Globulin 4.2 g/dL (2.3-3.5); Glomerular Filtration Rate 47 ml/min (=/>90); Glucose Level 279 mg/dL (74-106); Magnesium 1.6 mg/dL (1.6-2.4); NT PRO-BNP 1065 pg/mL (<125); Potassium 3.4 mEq/L (3.5-5.1); Protein, Total 7.5 g/dL (6.4-8.2); Sodium Level 135 mEq/L (136-145); Troponin High Sensitivity 7.2 pg/mL (<58.9)
--- NOTE | 2024-04-28 15:53 | RAD REPORT ---
EXAMINATION: UPPER EXTREMITY VENOUS UNILATE CLINICAL INDICATION: Female, 74 years old. [facility] MAIN PAIN Bed Name: 3 TECHNIQUE: Complete venous duplex sonography of the left upper extremity was performed. The examinati on included compression for vein patency, color Doppler imaging and flow augmentation in response to distal compression of the internal jugular, brachiocephalic, subclavian, axillary, brachial, radia l, ulnar, cephalic and basilic veins. COMPARISON: No prior exam. FINDINGS: Duplex sonography testing of the veins of the left upper extremity is completed. Color flow imaging s hows all veins to be compressible with appropriate color filling. Pulsatile and phasic flow is present within the upper extremity deep and superficial veins examined. IMPRESSION: There is no deep vein or superficial vein thrombosis.
[2024-04-28] MEDS ORDERED: NA CHLORIDE 0.9% 1,000 ML ONE (16:41)
[2024-04-28] MEDS ORDERED: POTASSIUM 25 MEQ EFFERV TAB ONE (16:41)
--- NOTE | 2024-04-28 16:55 | RAD REPORT ---
EXAMINATION: ONE VIEW CHEST XR CLINICAL INDICATION: Female, 74 years old.,CHEST PAIN TECHNIQUE: Frontal chest projection is submitted. Examination is limited by patient positioning and t echnique. COMPARISON: 04/11/2022 FINDINGS: The lungs are well inflated and clear. No pneumothorax or sizable effusion. The heart is again at th e upper limit of normal in size. Mediastinal contours are unremarkable. IMPRESSION: No acute intrathoracic abnormalities.
--- NOTE | 2024-04-28 17:00 | ER ---
Nurse's Notes [facility] Name: Soledad Cortes Age: 74 yrs Sex: Female : 1950 Arrival Date: 04/28/2024 Time: 13:18 Bed 13 Private MD: Diagnosis: Pain in left arm;Type 2 diabetes mellitus with hyperglycemia Presentation: 04/28 13:55 Chief complaint: Patient states: left arm and right hand pain, started on Thursday, no ko1 injuries just woke up and it was hurting. Coronavirus screen: At this time, the client does not indicate any symptoms associated with coronavirus-19. Ebola Screen: No symptoms or risks identified at this time. Initial Sepsis Screen: Does the patient meet any 2 criteria? No. Patient's initial sepsis screen is negative. Does the patient have a suspected source of infection? No. Patient's initial sepsis screen is negative. Risk Assessment: Do you want to hurt yourself or someone else? Patient reports no desire to harm self or others. Onset of symptoms is unknown. 13:55 Method Of Arrival: Ambulatory ko1 13:55 Acuity: JOHN 3 ko1 Triage Assessment: 13:59 General: Appears in no apparent distress. Behavior is calm, cooperative, appropriate ko1 for age. Pain: Complains of pain in right hand and left arm. Historical: - Allergies: 13:59 Codeine; ko1 13:59 Talwin; ko1 13:59 Toradol; ko1 - PMHx: 13:59 Anxiety; breast cancer; CHRONIC LOW BACK PAIN; depressive disorder; Diabetes - NIDDM; ko1 Hypertension; - PSHx: 13:59 back; masectomy; ko1 - Immunization history:: Adult Immunizations unknown. - Infectious Disease History:: Denies. - Social history:: Smoking status: Patient denies any tobacco usage or history of. Screenin:47 [facility] ED Fall Risk Assessment (Adult) History of falling in the last 3 months, cm10 including since admission No falls in past 3 months (0 pts) Confusion or Disorientation No (0 pts) Intoxicated or Sedated No (0 pts) Impaired Gait No (0 pts) Mobility Assist Device Used No (0 pt) Altered Elimination No (0 pt) Score/Fall Risk Level 0 - 2 = Low Risk Oriented to surroundings, Maintained a safe environment, Hourly rounding (assess needs \T\ fall precautionary measures) done. Abuse screen: Denies threats or abuse. Denies injuries from another. Nutritional screening: No deficits noted. Tuberculosis screening: No symptoms or risk factors identified. Assessment: 16:47 General: Appears in no apparent distress. comfortable, Behavior is calm, cooperative. cm10 Neuro: No deficits noted. Level of Consciousness is awake, alert, obeys commands, Oriented to person, place, time, situation, Appropriate for age. Cardiovascular: No deficits noted. Heart tones present Patient's skin is warm and dry. Respiratory: No deficits noted. Airway is patent Respiratory effort is even, unlabored, Respiratory pattern is regular, symmetrical, Breath sounds are clear bilaterally. Musculoskeletal: No deficits noted. Reports pain in left arm and right hand. Vital Signs: 13:55 BP 181 / 78; Pulse 93; Resp 15; Temp 98.2; Pulse Ox 97% ; ko1 16:30 BP 170 / 83; Pulse 91; Resp 17; Pulse Ox 100% ; cm10 ED Course: 13:29 Patient arrived in ED. im 13:30 Charlotte Flower PA-C is PHCP. sb4 13:30 Aldo Merchant MD is Attending Physician. sb4 13:59 Triage completed. ko1 13:59 Arm band placed on right wrist. Patient placed in waiting room, Patient notified of ko1 wait time. 14:19 Basic Metabolic Panel Sent. bc6 14:19 CBC with Diff Sent. bc6 14:19 LFT's Sent. bc6 14:19 Magnesium Sent. bc6 14:19 NT PRO-BNP Sent. bc6 14:19 PT-INR Sent. bc6 14:19 Initial lab(s) drawn, by ED staff, sent to lab. Inserted saline lock: 20 gauge in left cm10 antecubital area, using aseptic technique. Blood collected. Flushed with 10 mL NS. 14:20 Troponin HS Sent. bc6 15:14 UPPER EXTREMITY VENOUS UNILATE In Process Unspecified. EDMS 15:26 XRAY Chest (1 view) In Process Unspecified. EDMS 16:45 Jennifer Sousa, RN is Primary Nurse. cm10 16:47 Patient has correct armband on for positive identification. Bed in low position. Call cm10 light in reach. Side rails up X2. Provided Education on: ER process and procedures.. Client placed on continuous cardiac and pulse oximetry monitoring. NIBP monitoring applied. gambling monitor on. 17:28 No provider procedures requiring assistance completed. IV discontinued, intact, jl7 bleeding controlled, No redness/swelling at site. Pressure dressing applied. Administered Medications: 17:28 Discontinued: ns 0.9% 1000 ml IV at 1 bolus Per protocol; to be given as a bolus over jl7 60 minutes 16:46 Drug: Potassium PO Effervescent Tablet 25 mEq PO once; dissolve in 4 ounces of water or cm10 juice Route: PO; 17:28 Follow up: Response: No adverse reaction jl7 16:46 Drug: NS 0.9% IV 1000 ml IV at 1 bolus Per protocol; to be given as a bolus over 60 cm10 minutes Route: IV; Rate: 1 bolus; Site: left antecubital; 17:28 Follow up: Response: No adverse reaction; IV Status: Order to discontinue infusion jl7 Medication: 16:47 VIS not applicable for this client. cm10 Outcome: 16:59 Discharge ordered by MD. ramos 17:28 Discharged to home ambulatory, 7 17:28 Condition: stable 17:28 Discharge instructions given to patient, Instructed on discharge instructions, follow up and referral plans. Demonstrated understanding of instructions, follow-up care, 17:29 Patient left the ED. jl7 Signatures: Dispatcher [employer] EDJuan Reilly RN RN jl7 Camille Guillen RN RN ko1 Charlotte Flower, PA-C PA-C sb4 Talya Hinkle Itzel im Martinez, Clarissa, RN RN cm10
--- NOTE | 2024-04-28 17:00 | EDPHYS ---
Physician Documentation [facility] Name: Soledad Cortes Age: 74 yrs Sex: Female : 1950 Arrival Date: 04/28/2024 Time: 13:18 Bed 13 Private MD: ED Physician Aldo Merchant HPI: 04/28 14:07 This 74 yrs old Black Female presents to ER via Ambulatory with complaints of Arm Pain sb4 - left, Hand Pain - Right. 14:07 patient reports left arm pain x 2 days. denies any injury. states the pain is dull and sb4 extends throughout the entire arm. denies any pain with movement or radiation of the pain. denies any numbness or tingling. denies any chest pain or shortness of breath. had a right sided mastectomy 6 months ago for breast cancer that was uncomplicated. Historical: - Allergies: 13:59 Codeine; ko1 13:59 Talwin; ko1 13:59 Toradol; ko1 - PMHx: 13:59 Anxiety; breast cancer; CHRONIC LOW BACK PAIN; depressive disorder; Diabetes - NIDDM; ko1 Hypertension; - PSHx: 13:59 back; masectomy; ko1 - Immunization history:: Adult Immunizations unknown. - Infectious Disease History:: Denies. - Social history:: Smoking status: Patient denies any tobacco usage or history of. ROS: 14:07 Constitutional: Negative for fever, chills, and weight loss, sb4 14:07 MS/extremity: Positive for pain, of the left arm, 14:07 All other systems are negative, Exam: 14:07 Constitutional: This is a well developed, well nourished patient who is awake, alert, sb4 and in no acute distress. Head/Face: Normocephalic, atraumatic. Eyes: Extra-ocular motions intact. Periorbital areas with no swelling, redness, or edema. ENT: Mucous membranes moist. Respiratory: No increased work of breathing, no retractions or nasal flaring. Skin: Warm, dry with normal turgor. Normal color with no rashes, no lesions, and no evidence of cellulitis. MS/ Extremity: Pulses equal, no cyanosis. Neurovascular intact. Full, normal range of motion. 14:07 Special observations: complaints out of proportion to exam, reading newspaper, picking at nails, Vital Signs: 13:55 BP 181 / 78; Pulse 93; Resp 15; Temp 98.2; Pulse Ox 97% ; ko1 16:30 BP 170 / 83; Pulse 91; Resp 17; Pulse Ox 100% ; cm10 MDM: 14:01 Medical Screening Exam initiated sb4 16:58 Data reviewed: vital signs, nurses notes, lab test result(s), EKG, radiologic studies, sb4 and as a result, I will discharge patient. Counseling: I had a detailed discussion with the patient and/or guardian regarding the historical points, exam findings, and any diagnostic results supporting the discharge/admit diagnosis, lab results, radiology results, the need for outpatient follow up, for definitive care, to return to the emergency department if symptoms worsen or persist or if there are any questions or concerns that arise at home. 04/28 14:06 Order name: Basic Metabolic Panel; Complete Time: 14:59 sb4 04/28 14:06 Order name: CBC with Diff; Complete Time: 14:48 sb4 04/28 14:06 Order name: LFT's; Complete Time: 14:59 sb4 04/28 14:06 Order name: Magnesium; Complete Time: 14:59 sb4 04/28 14:06 Order name: NT PRO-BNP; Complete Time: 14:59 sb4 04/28 14:06 Order name: PT-INR; Complete Time: 14:44 sb4 04/28 14:06 Order name: Troponin HS; Complete Time: 14:59 sb4 04/28 14:06 Order name: XRAY Chest (1 view); Complete Time: 16:56 sb4 04/28 14:12 Order name: UPPER EXTREMITY VENOUS UNILATE; Complete Time: 16:03 EDMS 04/28 14:06 Order name: Cardiac monitoring; Complete Time: 16:21 sb4 04/28 14:06 Order name: EKG - Nurse/Tech; Complete Time: 16:11 sb4 04/28 14:06 Order name: IV Saline Lock; Complete Time: 14:19 sb4 04/28 14:06 Order name: Labs collected and sent; Complete Time: 14:19 sb4 04/28 14:06 Order name: O2 Per Protocol; Complete Time: 16:11 sb4 04/28 14:06 Order name: O2 Sat Monitoring; Complete Time: 16:11 sb4 EC:06 Rate is 94 beats/min. Rhythm is regular, Normal Sinus Rhythm. ND interval is normal at sb4 200 msec. QRS interval is normal at 96 msec. QT interval is normal at 374 msec. No Q waves. T waves are Normal. No ST changes noted. Clinical impression: Normal ECG and No evidence of ischemia. Interpreted by me. Reviewed by me. Administered Medications: 17:28 Discontinued: ns 0.9% 1000 ml IV at 1 bolus Per protocol; to be given as a bolus over jl7 60 minutes 16:46 Drug: Potassium PO Effervescent Tablet 25 mEq PO once; dissolve in 4 ounces of water or cm10 juice Route: PO; 17:28 Follow up: Response: No adverse reaction jl7 16:46 Drug: NS 0.9% IV 1000 ml IV at 1 bolus Per protocol; to be given as a bolus over 60 cm10 minutes Route: IV; Rate: 1 bolus; Site: left antecubital; 17:28 Follow up: Response: No adverse reaction; IV Status: Order to discontinue infusion jl7 Disposition: 19:42 Co-signature as Attending Physician, Aldo Merchant MD I reviewed the patient's care rn provided by the Advanced Practice Provider and agree with the diagnosis and treatment plan. Disposition Summary: 04/28/24 16:59 Discharge Ordered Notes: Location: Home sb4 Problem: new sb4 Symptoms: have improved sb4 Condition: Stable sb4 Diagnosis - Pain in left arm sb4 - Type 2 diabetes mellitus with hyperglycemia sb4 Followup: sb4 - With: Private Physician - When: As needed - Reason: Recheck today's complaints, Re-evaluation by your physician Discharge Instructions: - Discharge Summary Sheet sb4 - Diabetic Neuropathy sb4 - Hypokalemia sb4 Forms: - Patient Portal Instructions sb4 - Leadership Thank You Letter sb4 Signatures: Dispatcher [employer] Aldo Cuba MD MD rn Oliver, Kathy, RN RN [email or web address] Charlotte Flower PA-C PA-C sb4 Jennifer Sousa RN RN cm10 Juan Miller RN jl7 Corrections: (The following items were deleted from the chart) 14:06 14:06 BASIC METABOLIC PANEL+C.LAB.BRZ ordered. EDMS EDMS 14:06 14:06 CBC+H.LAB.BRZ ordered. EDMS EDMS 14: 14:06 HEPATIC FUNCTION+C.LAB.BRZ ordered. EDMS EDMS 14: 14:06 MAGNESIUM+C.LAB.BRZ ordered. EDMS EDMS 14: 14:06 PROBNP+C.LAB.BRZ ordered. EDMS EDMS 14: 14:06 PROTIME (+INR)+COAG.LAB.BRZ ordered. EDMS EDMS 14: 14:06 Troponin High Sensitivity+C.LAB.BRZ ordered. EDMS EDMS 14: 14:06 Chest Single View+RAD.RAD.BRZ ordered. EDMS EDMS 14: 14:06 Extremity Venous Uni Ltd+US.RAD.BRZ ordered. EDMS EDMS
[2024-04-28 23:24] VITALS: TEMP 98.2
[2024-04-28 23:33] VITALS: BP 170/83; O2SAT 100
== END 2024-04-28 17:29 | disposition home or self-care (01) ==
LOC: ER 13:18
DX: M79.602 Pain in left arm (principal); E11.65 Type 2 diabetes mellitus with hyperglycemia; I10 Essential (primary) hypertension
CPT/HCPCS: 85025; 80048; 36415; 83735; 85610; 80076; 84484; 83880; 71045; 93971; 96360; 99285; J7030

== ENCOUNTER 2024-05-18 11:26 | Emergency (ER) | payer OTHER ==
--- OUTSIDE RECORDS SUMMARY | 2024-05-18 11:28 | XMS REPORT | Clinical Summary ---
Author Name Unknown Organization [facility] Address [address] [place] [address] Care Team Providers Care Sand Miller Name Role Phone Padma Nguyen MD Unavailable [phone] Peter Carlin MD Primary Care Provider [phone] Katherine Al MD Unavailable [phone] Min Osborn MD Unavailable [phone] Nawaf Delgadillo MD Unavailable Nawaf Delgadillo MD [...] from 05/26/2018:Stage IB(cT1c, cN0, cM0, G3, ER+, [place]-, HER2-) - Signed by Peter Carlin MD on 05/26/2018 Pathologic stage from 08/19/2018:Stage IIA(pT2, pN0, cM0, G3, ER+, [place]-, HER2-) - Signed by Peter Carlin MD [...] drug user Managed by Dr German Aguilar [place] Family History Medical History Relation Name Comments [...] PM CDT 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 Internal Medicine 08/23/18 Min Osborn MD [id number] [place] [address] Anesthesiology 08/23/18 Nawaf Delgadillo MD [address] [place] [address] [email or web address] [email or web address] Radiation Oncology 11/24/18 Nawaf Delgadillo MD [address] [place] [address] [email or web address] [email or web address] Oncology 03/01/19 Amelia Muller MD [address] [place] [id number] [email or web address] Consulting Physician Breast Medical Oncology 08/23/18
[2024-05-18] MEDS ORDERED: NA CHLORIDE 0.9% 500 ML ONE (11:56)
[2024-05-18] MEDS ORDERED: dexAMETHasone 10 MG/ML VIAL ONE (11:56)
[2024-05-18] MEDS ORDERED: METOCLOPRAMIDE 10 MG/2mL INJ ONE (11:56)
[2024-05-18] MEDS ORDERED: DIPHENHYDRAMINE 50 MG/ML VIAL ONE (11:56)
[2024-05-18 12:08] LABS: Absolute Lymphocytes (CBC) 0.6 K/uL (0.7-4.9); Absolute Monocytes 0.7 K/uL (0.1-1.3); Absolute Neutrophil 5.6 K/uL (1.8-8.0); Basophils % 0.2 % (0-1.3); Eosinophils % 0.4 % (0-4.4); Hematocrit 35.5 % (36.0-45.0); Hemoglobin 11.2 g/dL (12.0-15.0); MCH 25.8 pg (27.0-35.0); MCHC 31.5 g/dL (32.0-36.0); MCV 81.9 fL (80-100); MPV 7.4 fL (7.6-11.3); Monocytes % 10.2 % (3.3-12.3); Neutrophils % 80.2 % (41.7-73.7); Platelets 254 thou/uL (152-406); RBC Red Blood Cell Count 4.34 M/uL (3.86-4.86); Red Cell Distribution Width 14.2 % (12.1-15.2)
[2024-05-18 12:22] LABS: Anion Gap 8.3 mEq/L (5.0-15.0); Potassium 3.3 mEq/L (3.5-5.1)
--- NOTE | 2024-05-18 12:44 | ER ---
Nurse's Notes [facility] Name: Soledad Cortes Age: 74 yrs Sex: Female : 1950 Arrival Date: 05/18/2024 Time: 11:26 Bed 5 Private MD: Diagnosis: Headache Presentation: 05/18 11:33 Chief complaint: Patient states: I got a migraine and my back is killing me , started iw last night , previous hx of migraines. Coronavirus screen: At this time, the client does not indicate any symptoms associated with coronavirus-19. Ebola Screen: No symptoms or risks identified at this time. Initial Sepsis Screen: Does the patient meet any 2 criteria? No. Patient's initial sepsis screen is negative. Does the patient have a suspected source of infection? No. Patient's initial sepsis screen is negative. Risk Assessment: Do you want to hurt yourself or someone else? Patient reports no desire to harm self or others. Onset of symptoms was May 17, 2024. 11:33 Method Of Arrival: Wheelchair iw 11:33 Acuity: JOHN 3 iw Triage Assessment: 14:37 General: Appears in no apparent distress. Behavior is calm, cooperative. ko1 Historical: - Allergies: 11:34 Codeine; iw 11:34 Talwin; iw 11:34 Toradol; iw - PMHx: 11:34 Anxiety; breast cancer; CHRONIC LOW BACK PAIN; depressive disorder; Diabetes - NIDDM; iw Hypertension; - PSHx: 11:34 back; masectomy; iw - Immunization history:: Adult Immunizations up to date. - Infectious Disease History:: Denies. - Social history:: Smoking status: Patient denies any tobacco usage or history of. Screenin:04 [facility] ED Fall Risk Assessment (Adult) History of falling in the last 3 months, ph including since admission No falls in past 3 months (0 pts) Confusion or Disorientation No (0 pts) Intoxicated or Sedated No (0 pts) Impaired Gait No (0 pts) Mobility Assist Device Used No (0 pt) Altered Elimination No (0 pt) Score/Fall Risk Level 0 - 2 = Low Risk Oriented to surroundings, Maintained a safe environment, Hourly rounding (assess needs \T\ fall precautionary measures) done. Abuse screen: Denies threats or abuse. Denies injuries from another. Nutritional screening: No deficits noted. Tuberculosis screening: No symptoms or risk factors identified. Assessment: 11:45 Pain: Complains of pain in generalized. ko1 Vital Signs: 11:33 BP 148 / 86; Pulse 94; Resp 16; Temp 98.3; Pulse Ox 95% on R/A; Weight 72.57 kg; Height iw 5 ft. 2 in. ; Pain 10/10; 14:35 BP 134 / 72; Pulse 88; Resp 15; Pulse Ox 97% on R/A; ko1 11:33 Body Mass Index 29.26 (72.57 kg, 157.48 cm) iw 11:33 Pain Scale: Adult iw ED Course: 11:28 Patient arrived in ED. ra3 11:34 Triage completed. iw 11:34 Con Joaquin MD is Attending Physician. ec2 11:38 Arm band placed on. iw 11:52 Madiha Mesa RN is Primary Nurse. ph 11:58 Initial lab(s) drawn, by me, sent to lab. Inserted saline lock: 22 gauge in left tm3 antecubital area, using aseptic technique. 12:04 BMP Sent. ph 12:07 Patient has correct armband on for positive identification. Bed in low position. Call ph light in reach. Side rails up X 1. Pulse ox on. NIBP on. Door closed. Noise minimized. Lights dimmed. Warm blanket given. Pillow given. 12:58 Patient requests rest room assistance. ko1 12:58 Assisted to bathroom. ko1 14:35 Provided Education on: meds. ko1 14:35 No provider procedures requiring assistance completed. IV discontinued, intact, ko1 bleeding controlled, No redness/swelling at site. Pressure dressing applied. Administered Medications: 12:03 Drug: metoCLOPramide IVP 10 mg IVP once; over 1 to 2 minutes Route: IVP; Site: left ph antecubital; 12:18 Follow up: Response: No adverse reaction ko1 12:03 Drug: diphenhydrAMINE IVP 50 mg IVP once Route: IVP; Site: left antecubital; ph 12:18 Follow up: Response: No adverse reaction ko1 12:03 Drug: Decadron - Dexamethasone IVP 10 mg IVP once Route: IVP; Site: left antecubital; ph 12:18 Follow up: Response: No adverse reaction ko1 12:04 Drug: NS 0.9% IV 500 ml 500 ml IV at 1 bolus once; to be given as a bolus over 30 ph minutes Volume: 500 ml; Route: IV; Rate: 1 bolus; Site: left antecubital; 14:30 Follow up: Response: No adverse reaction; IV Status: Completed infusion; IV Intake: ko1 500ml Medication: 12:04 VIS not applicable for this client. ph Intake: 14:30 IV: 500ml; Total: 500ml. ko1 Outcome: 12:43 Discharge ordered by . ec2 14:35 Discharged to home via wheelchair, with family, ko1 14:35 Condition: stable 14:35 Discharge instructions given to patient, Instructed on discharge instructions, follow up and referral plans. medication usage, Demonstrated understanding of instructions, follow-up care, medications, Prescriptions given X 1, 14:37 Patient left the ED. ko1 Signatures: Jassi Che tm3 Kristyn King RN RN Madiha Mesa RN RN ph Oliver, Kathy, RN RN ko1 Con Joaquin MD MD ec2 Faiza Shen ra3 Corrections: (The following items were deleted from the chart) 11:35 11:33 BP 148 / 86; Pulse 94bpm; Resp 16bpm; Pulse Ox 95% RA; Temp 98.3F; Pain 10, iw Adult; iw
--- NOTE | 2024-05-18 12:44 | EDPHYS ---
Physician Documentation [facility] Name: Soledad Cortes Age: 74 yrs Sex: Female : 1950 Arrival Date: 05/18/2024 Time: 11:26 Bed 5 Private MD: ED Physician Con Joaquin HPI: 05/18 11:43 This 74 yrs old Black Female presents to ER via Wheelchair with complaints of Hurts All ec2 Over. 11:43 Patient arrives today with complaints of headache. Reports history of migraines and ec2 distress similar. reports that she does not take any migraine medications regularly. Reports she takes hydrocodone for chronic pain. Reports some nausea. No vomiting otherwise no other concerns.. Historical: - Allergies: 11:34 Codeine; iw 11:34 Talwin; iw 11:34 Toradol; iw - PMHx: 11:34 Anxiety; breast cancer; CHRONIC LOW BACK PAIN; depressive disorder; Diabetes - NIDDM; iw Hypertension; - PSHx: 11:34 back; masectomy; iw - Immunization history:: Adult Immunizations up to date. - Infectious Disease History:: Denies. - Social history:: Smoking status: Patient denies any tobacco usage or history of. ROS: 11:43 Constitutional: as per hpi ec2 Exam: 11:43 Constitutional: GEN: NAD Head: atraumatic Eyes: EOMI Ears: External ears are ec2 normal. CV: regular rate LUNGS: no respiratory distress ABD: non-distended SKIN: no evidence of rashes MSK: no evidence of trauma. Neuro: Cranial nerves II through XII intact, strength intact all 4 extremities Vital Signs: 11:33 BP 148 / 86; Pulse 94; Resp 16; Temp 98.3; Pulse Ox 95% on R/A; Weight 72.57 kg; Height iw 5 ft. 2 in. ; Pain 10/10; 14:35 BP 134 / 72; Pulse 88; Resp 15; Pulse Ox 97% on R/A; ko1 11:33 Body Mass Index 29.26 (72.57 kg, 157.48 cm) iw 11:33 Pain Scale: Adult iw MDM: 11:34 Medical Screening Exam initiated ec2 11:43 Data reviewed: vital signs, nurses notes. ED course: Patient arrives today for ec2 evaluation of headache. Examination is unrevealing. Will obtain lab work, give the patient crystalloid as well as headache medications. Suspect patient's migrainous symptoms causing her complaint today. Doubt intracranial brain bleed given lack of trauma. Doubt intracranial mass given lack of focal neurologic examination. Accordingly we will forego CT imaging of the head.. 12:24 ED course: Labs nonactionable.. ec2 12:43 ED course: On reassessment patient with improvement in symptoms. Will discharge home. ec2 Return precautions given. Suspect migraine symptoms causing her symptoms today.. 05/18 11:41 Order name: CBC with Diff; Complete Time: 12:22 ec2 05/18 11:41 Order name: BMP; Complete Time: 12: ec2 05/18 11:41 Order name: IV; Complete Time: 12:04 ec2 Administered Medications: 12:03 Drug: metoCLOPramide IVP 10 mg IVP once; over 1 to 2 minutes Route: IVP; Site: left ph antecubital; 12:18 Follow up: Response: No adverse reaction ko1 12:03 Drug: diphenhydrAMINE IVP 50 mg IVP once Route: IVP; Site: left antecubital; ph 12:18 Follow up: Response: No adverse reaction ko1 12:03 Drug: Decadron - Dexamethasone IVP 10 mg IVP once Route: IVP; Site: left antecubital; ph 12:18 Follow up: Response: No adverse reaction ko1 12:04 Drug: NS 0.9% IV 500 ml 500 ml IV at 1 bolus once; to be given as a bolus over 30 ph minutes Volume: 500 ml; Route: IV; Rate: 1 bolus; Site: left antecubital; 14:30 Follow up: Response: No adverse reaction; IV Status: Completed infusion; IV Intake: ko1 500ml Disposition Summary: 05/18/24 12:43 Discharge Ordered Notes: Location: Home ec2 Condition: Stable ec2 Diagnosis - Headache ec2 Followup: ec2 - With: Private Physician - When: - Reason: Re-evaluation by your physician Discharge Instructions: - Discharge Summary Sheet ec2 - Migraine Headache ec2 Forms: - Medication Reconciliation Form ec2 - Antibiotic Education ec2 - Prescription Opioid Use ec2 - Patient Portal Instructions ec2 - Leadership Thank You Letter ec2 Prescriptions: - Compazine 10 mg Oral Tablet - take 1 tablet ORAL route every 8 hours As needed; 20 tablet; Refills: 0, ec2 Product Selection Permitted Signatures: Dispatcher [employer] Kristyn Ramsay RN RN Madiha Mesa RN RN Con Joaquin MD MD ec2 Camille Guillen RN ko1 Corrections: (The following items were deleted from the chart) 11:42 11:42 CBC+H.LAB.BRZ ordered. EDMS EDMS 11:42 11:42 BASIC METABOLIC PANEL+C.LAB.BRZ ordered. EDMS EDMS
[2024-05-18 14:49] VITALS: TEMP 98.3
[2024-05-18 14:57] VITALS: BP 134/72; O2SAT 97
== END 2024-05-18 14:37 | disposition home or self-care (01) ==
LOC: ER 11:26
DX: R51.9 Headache, unspecified (principal); E11.9 Type 2 diabetes mellitus without complications; F32.A Depression, unspecified; F41.9 Anxiety disorder, unspecified; I10 Essential (primary) hypertension; Z88.5 Allergy status to narcotic agent; Z85.3 Personal history of malignant neoplasm of breast
CPT/HCPCS: 96361; 85025; 80048; 36415; 96375; 96374; 99284; J2765; J1200; J1100; J7040

== ENCOUNTER 2024-07-28 15:04 | Emergency (ER) | payer OTHER ==
--- OUTSIDE RECORDS SUMMARY | 2024-07-28 15:07 | XMS REPORT | Clinical Summary ---
Author Name Unknown Organization [facility] Address [address] [place] [address] Care Team Providers Care Training And Development Rep Name Role Phone Padma Nguyen MD Unavailable [phone] Peter Carlin MD Primary Care Provider [phone] Katherine Al MD Unavailable [phone] Min Osborn MD Unavailable [phone] Nawaf Delgadillo MD Unavailable Nawaf Delgadillo MD [...] from 05/26/2018:Stage IB(cT1c, cN0, cM0, G3, ER+, [place]-, HER2-) - Signed by Peter Carlin MD on 05/26/2018 Pathologic stage from 08/19/2018:Stage IIA(pT2, pN0, cM0, G3, ER+, [place]-, HER2-) - Signed by Peter Carlin MD [...] drug user Managed by Dr German Aguilar [place] Family History Medical History Relation Name Comments [...] PM CDT 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 Gender Identity Female 12/29/2019 6:20 PM CDT [...] Due Date Last Done Comments Pneumococcal Vaccine: 50+ Ye ars (1 of 1 - PCV) 02/06/2002 COVID-19 Vaccine (2023- season) 01/24/202411/2020, 07/01/2020 Influenza Vaccine (#1) 2024 Insurance MEDICARE PPO [employer] MEDICARE PPO MEDICARE PPO Care Teams Training And Development Rep Relationship Specialty Start Date End Date Padma Nguyen MD [email or web address] PCP - External Referring Obstetrics/Gynecology 05/04/18 Peter Carlin MD [address] [place] [id number] [email or web address] PCP - General Breast Surgery 05/24/18 Katherine Al MD [address] [place] [phone] [email or web address] Internal Medicine 08/23/18 Min Osborn MD [address] [place] [phone] Anesthesiology 08/23/18 Nawaf Delgadillo MD [address] [place] [address] [email or web address] [email or web address] Oncology 11/24/18 Nawaf Delgadillo MD [address] [place] [address] [email or web address] 03/01/19 Amelia Muller MD [address] [place] [phone] [email or web address] Consulting Physician Breast Medical Oncology 08/23/18
--- NOTE | 2024-07-28 17:08 | ER ---
Nurse's Notes [facility] Name: Soledad Cortes Age: 74 yrs Sex: Female : 1950 Arrival Date: 07/28/2024 Time: 15:04 Bed DIS4 Private MD: Diagnosis: Confusion Presentation: 07/28 15:17 Chief complaint: Bilateral leg pain and headache x 2 days, family reports intermittent hb confusion x 4-5 days. Coronavirus screen: At this time, the client does not indicate any symptoms associated with coronavirus-19. Ebola Screen: No symptoms or risks identified at this time. Initial Sepsis Screen: Does the patient meet any 2 criteria? No. Patient's initial sepsis screen is negative. Does the patient have a suspected source of infection? No. Patient's initial sepsis screen is negative. Risk Assessment: Do you want to hurt yourself or someone else? Patient reports no desire to harm self or others. Onset of symptoms was July 27, 2024. 15:17 Method Of Arrival: Wheelchair hb 15:19 Acuity: JOHN 3 hb Triage Assessment: 15:20 General: Appears in no apparent distress. Behavior is calm, cooperative. Pain: Pain hb currently is 5 out of 10 on a pain scale. Neuro: GCS 15. Historical: - Allergies: 15:18 Codeine; hb 15:18 Talwin; hb 15:18 Toradol; hb - PMHx: 15:18 breast cancer; Diabetes - NIDDM; Anxiety; CHRONIC LOW BACK PAIN; depressive disorder; hb Hypertension; - PSHx: 15:18 back; masectomy; hb - Immunization history:: Adult Immunizations up to date. - Infectious Disease History:: Denies. - Social history:: Smoking status: Patient denies any tobacco usage or history of. - Family history:: not pertinent. Assessment: 17:00 Reassessment: not in the lobby when called. iw Vital Signs: 15:17 BP 171 / 101; Pulse 77; Resp 16; Temp 97.2(TE); Pulse Ox 100% on R/A; Pain 5/10; hb 15:17 Pain Scale: Adult hb ED Course: 15:10 Patient arrived in ED. cj3 15:11 Ben Damon MD is Attending Physician. rt 15:19 Arm band placed on. hb 15:20 Triage completed. hb 16:30 XRAY Chest (1 view) In Process Unspecified. EDMS 16:43 CT Head Brain wo Cont In Process Unspecified. EDMS Administered Medications: No medications were administered Outcome: 17:07 Discharge ordered by . rt 17:09 Patient left the ED. hb Signatures: Dispatcher [employer] EDKristyn Bolivar RN RN iw Martha Bain RN RN hb Ben Damon MD MD rt Anusha Watts cj3 Corrections: (The following items were deleted from the chart) 15:20 15:17 Chief complaint: Bilateral leg pain and headache x 2 days hb hb 15:20 15:17 Ebola Screen: No symptoms or risks identified at this time. hb hb
--- NOTE | 2024-07-28 17:08 | EDPHYS ---
Physician Documentation [facility] Name: Soledad Cortes Age: 74 yrs Sex: Female : 1950 Arrival Date: 07/28/2024 Time: 15:04 Bed DIS4 Private MD: ED Physician Ben Damon HPI: 07/28 15:59 This 74 yrs old Black Female presents to ER via Wheelchair with complaints of Altered rt Mental Status, Hallucinations, Fall. 15:59 Patient presents to the ED with intermittent confusion for the past 4 days. states that rt she had a fall today but no trauma. Reports a headache today but denies other acute complaints at this time, symptoms are moderate in severity, no other aggravating or alleviating factors.. Historical: - Allergies: 15:18 Codeine; hb 15:18 Talwin; hb 15:18 Toradol; hb - PMHx: 15:18 breast cancer; Diabetes - NIDDM; Anxiety; CHRONIC LOW BACK PAIN; depressive disorder; hb Hypertension; - PSHx: 15:18 back; masectomy; hb - Immunization history:: Adult Immunizations up to date. - Infectious Disease History:: Denies. - Social history:: Smoking status: Patient denies any tobacco usage or history of. - Family history:: not pertinent. ROS: 15:59 Constitutional: Negative for fever, chills, and weight loss, Cardiovascular: Negative rt for chest pain, palpitations, and edema, Respiratory: Negative for shortness of breath, cough, wheezing, and pleuritic chest pain, Abdomen/GI: Negative for abdominal pain, nausea, vomiting, diarrhea, and constipation, MS/Extremity: Negative for injury and deformity, Skin: Negative for injury, rash, and discoloration, 15:59 Neuro: Positive for altered mental status, Negative for loss of consciousness, Exam: 15:59 Constitutional: This is a well developed, well nourished patient who is awake, alert, rt and in no acute distress. Chest/axilla: Normal chest wall appearance and motion. Nontender with no deformity. No lesions are appreciated. Cardiovascular: Regular rate and rhythm with a normal S1 and S2. No gallops, murmurs, or rubs. Normal PMI, no JVD. No pulse deficits. Respiratory: Lungs have equal breath sounds bilaterally, clear to auscultation and percussion. No rales, rhonchi or wheezes noted. No increased work of breathing, no retractions or nasal flaring. Abdomen/GI: Soft, non-tender, with normal bowel sounds. No distension or tympany. No guarding or rebound. No evidence of tenderness throughout. Skin: Warm, dry with normal turgor. Normal color with no rashes, no lesions, and no evidence of cellulitis. MS/ Extremity: Pulses equal, no cyanosis. Neurovascular intact. Full, normal range of motion. Neuro: Awake and alert, GCS 15, oriented to person, place, time, and situation. Cranial nerves II-XII grossly intact. Motor strength 5/5 in all extremities. Sensory grossly intact. Cerebellar exam normal. Normal gait. Vital Signs: 15:17 BP 171 / 101; Pulse 77; Resp 16; Temp 97.2(TE); Pulse Ox 100% on R/A; Pain 5/10; hb 15:17 Pain Scale: Adult hb MDM: 15:17 Medical Screening Exam initiated rt 17:45 Differential Diagnosis: Intracranial hemorrhage, viral syndrome, dysrhythmia. Data rt reviewed: vital signs, nurses notes. 17:45 Independent interpretation of the following test(s) in the Emergency Department CT rt Scan: My interpretation is No intracranial hemorrhage seen on my interpretation of CT scan images. ED course: Patient's workup started, she eloped from the lobby prior to her workup being complete and before I was able to discuss with her risks and benefits of leaving before workup was finished.. 07/28 15:24 Order name: XRAY Chest (1 view); Complete Time: 17:45 rt 07/28 15:24 Order name: CT Head Brain wo Cont; Complete Time: 17:45 rt 07/28 15:24 Order name: Cardiac monitoring rt 07/28 15:24 Order name: EKG - Nurse/Tech rt 07/28 15:24 Order name: IV Saline Lock rt 07/28 15:24 Order name: Labs collected and sent rt 07/28 15:24 Order name: O2 Per Protocol rt 07/28 15:24 Order name: O2 Sat Monitoring rt Administered Medications: No medications were administered Disposition Summary: 07/28/24 17:07 Discharge Ordered Notes: Location: Home rt Condition: Undetermined rt Diagnosis - Confusion rt Followup: rt - With: Private Physician - When: As needed - Reason: Forms: - Medication Reconciliation Form rt - Antibiotic Education rt - Prescription Opioid Use rt - Patient Portal Instructions rt - Leadership Thank You Letter rt Signatures: Dispatcher [employer] EDMartha Cook, PRABHU RN Ben Garcia MD MD rt Corrections: (The following items were deleted from the chart) 15:24 15:24 BASIC METABOLIC PANEL+C.LAB.BRZ ordered. EDMS EDMS 15:24 15:24 CBC+H.LAB.BRZ ordered. EDMS EDMS 15:24 15:24 HEPATIC FUNCTION+C.LAB.BRZ ordered. EDMS EDMS 15:24 15:24 Troponin High Sensitivity+C.LAB.BRZ ordered. EDMS EDMS 15:24 15:24 Urinalysis W/Microscopic+U.LAB.BRZ ordered. EDMS EDMS 15:24 15:24 Chest Single View+RAD.RAD.BRZ ordered. EDMS EDMS 15:25 15:25 Head Brain Wo Cont+CT.RAD.BRZ ordered. EDMS EDMS
[2024-07-28 17:16] VITALS: BP 171/101; TEMP 97.2; O2SAT 100
--- NOTE | 2024-07-28 17:22 | RAD REPORT ---
EXAMINATION: ONE VIEW CHEST XR CLINICAL INDICATION: Female, 74 years old.,ams TECHNIQUE: Frontal chest projection is submitted. Examination is limited by patient positioning and t echnique. COMPARISON: 04/28/2024 FINDINGS: The lungs are well inflated and clear. No pneumothorax or sizable effusion. The heart is upper limit of normal in size. Mediastinal contours are unremarkable. IMPRESSION: No acute pulmonary process. Mildly prominent cardiac silhouette.
--- NOTE | 2024-07-28 17:25 | RAD REPORT ---
EXAM: CT Head Brain Wo Cont HISTORY: ams COMPARISON: 04/11/2022 TECHNIQUE: Multiple contiguous axial images were obtained for a CT of the brain without contrast. Sag ittal and coronal reformats were performed. One or more of the following dose reduction techniques were used: Automated exposure control, adjus tment of the mA and kV according to patient size, and iterative reconstruction. Unless otherwise specified, incidental findings do not require dedicated imaging follow-up. FINDINGS: No evidence of hydrocephalus, intracranial hemorrhage, or extra-axial fluid collection. The brain is normal in morphology. The calvarium is intact. The visualized paranasal sinuses and mastoid air cells are essentially clear . Left middle nabil bullosa incidentally noted. IMPRESSION: No evidence of acute intracranial abnormality.
== END 2024-07-28 17:09 | disposition home or self-care (01) ==
LOC: ER 15:04
DX: R41.0 Disorientation, unspecified (principal); R51.9 Headache, unspecified
CPT/HCPCS: 70450; 71045; 99281

== ENCOUNTER 2024-08-22 05:57 | Emergency (ER) | payer OTHER ==
--- OUTSIDE RECORDS SUMMARY | 2024-08-22 06:00 | XMS REPORT | Clinical Summary ---
Author Name Unknown Organization [facility] Address [address] [place] [address] Care Team Providers Care Light Oil Operator Name Role Phone Padma Nguyen MD Unavailable [phone] Peter Carlin MD Primary Care Provider Katherine Al MD Unavailable [phone] Min Osborn MD Unavailable [phone] Nawaf Delgadillo MD Unavailable Nawaf Delgadillo [...] from 05/26/2018:Stage IB(cT1c, cN0, cM0, G3, ER+, SD-, HER2-) - Signed by Peter Carlin MD on 05/26/2018 Pathologic stage from 08/19/2018:Stage IIA(pT2, pN0, cM0, G3, ER+, SD-, HER2-) - Signed by Peter Carlin MD [...] drug user Managed by Dr German Aguilar OR Family History Medical History Relation Name Comments [...] PM CDT Legal Sex Female 8:37 AM 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 08/23/18 Min Osborn MD [address] [place] [id number] Anesthesiology 08/23/18 Nawaf Delgadillo MD [address] [place] [address] [email or web address] [email or web address] Radiation Oncology 11/24/18 Nawaf Delgadillo MD [address] [place] [address] [email or web address] 03/01/19 Amelia Muller MD [address] [place] [email or web address] Physician Breast Medical Oncology 08/23/18
[2024-08-22] MEDS ORDERED: MORPHINE 4 MG/ML SYR ONE (06:22)
[2024-08-22] MEDS ORDERED: methocarbamoL 750 MG TAB ONE (06:22)
--- NOTE | 2024-08-22 07:49 | RAD REPORT ---
EXAMINATION: CT LUMBAR SPINE WITHOUT CONTRAST CLINICAL INDICATION: Back pain. Radiculopathy. TECHNIQUE: Axial CT images were obtained through the lumbar spine in soft tissue and bone windows wit hout intravenous contrast. Coronal and Sagittal reformatted images were created from the data set. One or more of the following dose reduction techniques were used: Automated exposure control, adjustm ent of the mA and/ or kV according to patient size, and/or iterative reconstruction. Unless otherwise specified, incidental findings do not require dedicated imaging follow-up. COMPARISON: 2020 FINDINGS: For purposes of this dictation, it is assumed that there are 5 non rib-bearing lumbar type vertebrae, and the most caudal fully segmented lumbar vertebra is labeled L5. No fracture seen No dislocation. Small left lateral disc herniation at L1-2 Disc bulge L2-3 with ligamentum flavum and facet hypertrophy. Mild narrowing left neural foramina. Th ecal sac 8 mm. Left lateral disc herniation L3-4. Ligamentum flavum and facet hypertrophy. Thecal sac 6 mm. Disc space narrowing L4-5. Disc bulge. Mild to moderate narrowing of the left neural foramina. Mild t o moderate narrowing of the thecal sac. Mild spondylosis L5-S1. IMPRESSION: No fracture seen. Spondylosis and small left lateral disc herniations described above. Moderate central spinal stenosis L3-4 Nonemergent MRI lumbar spine can be obtained for further evaluation.
--- NOTE | 2024-08-22 07:49 | RAD REPORT ---
EXAMINATION: CT PELVIS WITHOUT CONTRAST CLINICAL INDICATION: Right hip/leg radiculopathy. Pelvic pain. TECHNIQUE: CT pelvis was performed, without IV contrast, as per department protocol. Axial, sagittal and coronal reconstructions were obtained. One or more of the following dose reduction techniques were used: Automated exposure control, adjustment of the mA and/or kV according to patient size, and/ or iterative reconstruction. Unless otherwise specified, incidental findings do not require dedicated imaging follow-up. COMPARISON: No prior exam. FINDINGS: No fracture or dislocation seen. No evidence of avascular necrosis. Significant hip joint effusion is not present. Right hip musculature normal size and density. Small to moderate bilateral inguinal hernias containing fat. Mild osteoarthritis involves the hips. IMPRESSION: No hip fracture Mild osteoarthritis involves the hips
--- NOTE | 2024-08-22 07:53 | ER ---
Nurse's Notes [facility] Name: Soledad Cortes Age: 74 yrs Sex: Female : 1950 Arrival Date: 08/22/2024 Time: 05:57 Bed 6 Private MD: Diagnosis: Acute on chronic low back pain Presentation: 08/22 06:14 Chief complaint: Patient states: I have lower back that is shooting through my right bm8 hip making difficult to walk. Coronavirus screen: Vaccine status: Patient reports receiving the 2nd dose of the covid vaccine. At this time, the client does not indicate any symptoms associated with coronavirus-19. Ebola Screen: Patient negative for fever greater than or equal to 101.5 degrees Fahrenheit, and additional compatible Ebola Virus Disease symptoms Patient denies travel to an Ebola-affected area in the 21 days before illness onset. No symptoms or risks identified at this time. Initial Sepsis Screen: Does the patient meet any 2 criteria? No. Patient's initial sepsis screen is negative. Does the patient have a suspected source of infection? No. Patient's initial sepsis screen is negative. Risk Assessment: Do you want to hurt yourself or someone else?. Onset of symptoms was August 21, 2024 at 09:00. 06:14 Method Of Arrival: Wheelchair bm8 06:14 Acuity: JOHN 3 bm8 Triage Assessment: 06:16 General: Appears in no apparent distress. uncomfortable, Behavior is calm, cooperative, bm8 appropriate for age. Pain: Complains of pain in back, right inguinal area and right iliac crest Pain currently is 10 out of 10 on a pain scale. EENT: No deficits noted. No signs and/or symptoms were reported regarding the EENT system. Neuro: No deficits noted. Cardiovascular: No deficits noted. Respiratory: No deficits noted. Musculoskeletal: Circulation, motion, and sensation intact. Capillary refill < 3 seconds, in bilateral fingers. Range of motion: limited in right hip Reports pain in back, right inguinal area and right iliac crest. Historical: - Allergies: 06:16 Codeine; bm8 06:16 Talwin; bm8 06:16 Toradol; bm8 - Home Meds: 06:16 bupropion HCl 150 mg Oral Tb24 1 tab once daily [Active]; cyclobenzaprine 10 mg Oral bm8 tab 1 tab as needed [Active]; lisinopril 40 mg Oral tab 1 tab once daily [Active]; metoprolol tartrate 50 mg Oral tab 1 tab 2 times per day [Active]; naproxen sodium Oral [Active]; Xanax Oral [Active]; zolpidem 5 mg Oral tab 1 tab once daily [Active]; - PMHx: 06:16 Anxiety; breast cancer; CHRONIC LOW BACK PAIN; depressive disorder; Diabetes - NIDDM; bm8 Hypertension; - PSHx: 06:16 back; masectomy; bm8 - Immunization history:: Adult Immunizations up to date. - Infectious Disease History:: Denies. - Social history:: Smoking status: Patient denies any tobacco usage or history of. Screenin:19 [facility] ED Fall Risk Assessment (Adult) History of falling in the last 3 months, bm8 including since admission Yes- fall prone (multiple falls) (3 pts) Confusion or Disorientation No (0 pts) Intoxicated or Sedated No (0 pts) Impaired Gait Yes (1 pt) Mobility Assist Device Used No (0 pt) Altered Elimination No (0 pt) Score/Fall Risk Level 0 - 2 = Low Risk Oriented to surroundings, Maintained a safe environment, Educated pt \T\ family on fall prevention, incl call for assistance when getting out of bed, Assessed \T\ reinforced patient's understanding of fall precautions, Hourly rounding (assess needs \T\ fall precautionary measures) done, Used ambulatory aids as needed (educated on \T\ assisted with), Used gait belt as appropriate. Abuse screen: Denies threats or abuse. Nutritional screening: No deficits noted. Tuberculosis screening: No symptoms or risk factors identified. Assessment: :19 Reassessment: see triage assessment. bm8 Vital Signs: 06:14 BP 154 / 96; Pulse 99; Resp 20; Temp 99; Pulse Ox 100% ; Weight 64.86 kg; Height 5 ft. bm8 3 in. ; Pain 10/10; 08:11 BP 174 / 86; Pulse 89; Resp 19; Pulse Ox 100% on R/A; iw 06:14 Body Mass Index 25.33 (64.86 kg, 160.02 cm) bm8 06:14 Pain Scale: Adult bm8 Kacy Coma Score: 06:19 Eye Response: spontaneous(4). Motor Response: obeys commands(6). Verbal Response: bm8 oriented(5). Total: 15. 06:29 Eye Response: spontaneous(4). Motor Response: obeys commands(6). Verbal Response: sp4 oriented(5). Total: 15. ED Course: 06:02 Patient arrived in ED. gm2 06:07 Gregory Anne MD is Attending Physician. sp4 06:13 Anthony Bowman, RN is Primary Nurse. bm8 06:16 Triage completed. bm8 06:16 Arm band placed on right wrist. bm8 06:19 Patient has correct armband on for positive identification. Bed in low position. Adult bm8 w/ patient. Client placed on continuous cardiac and pulse oximetry monitoring. NIBP monitoring applied. Pulse ox on. NIBP on. Door closed. Warm blanket given. Verbal reassurance given. Head of bed. 06:19 No provider procedures requiring assistance completed. bm8 07:01 Attending Physician role handed off by Gregory Anne MD sp3 07:01 Constantino Rivas MD is Attending Physician. sp3 07:07 CT Lumbar Spine Wo Con In Process Unspecified. EDMS 07:07 CT Pelvis wo Cont In Process Unspecified. EDMS 08:12 Provided Education on: . iw 08:12 Patient did not have IV access during this emergency room visit. iw Administered Medications: 06:26 Drug: morphine IM 8 mg IM once Route: IM; Site: left ventrogluteal; dd2 06:26 Drug: Methocarbamol PO 750 mg PO once Route: PO; dd2 Medication: 06:19 VIS not applicable for this client. bm8 Outcome: 07:52 Discharge ordered by . sp3 08:12 Discharged to home ambulatory, with family, iw 08:12 Condition: good 08:12 Discharge instructions given to patient, family, 08:12 Patient left the ED. iw Signatures: Dispatcher [employer] EDKristyn Bolivar RN RN iw Constantino Rivas MD MD sp3 Gregory Anne MD MD sp4 Dayna Proctor 2 Anthony Bowman, RN PRABUH bm8 GIRISH HUA RN RN dd2
--- NOTE | 2024-08-22 07:53 | EDPHYS ---
Physician Documentation [facility] Name: Soledad Cortes Age: 74 yrs Sex: Female : 1950 Arrival Date: 08/22/2024 Time: 05:57 Bed 6 Private MD: ED Physician Constantino Rivas HPI: 08/22 06:07 This 74 yrs old Black Female presents to ER via Unassigned with complaints of Low Back sp4 Pain, Hip Pain. 06:13 PMH - breast cancer; Diabetes - NIDDM; Anxiety; CHRONIC LOW BACK PAIN; depressive sp4 disorder; Hypertension; . 06:25 74-year-old female presents with acute worsening of her chronic back pain. Denied sp4 weakness in the legs. Patient is on pain management regimen with a local pain management physician Min Osborn DO. Patient is being prescribed hydrocodone 7.5 mg every month, last prescription 08/03/2024 for total 84 tablets. Patient also is prescribed alprazolam by her psychiatrist. Alprazolam 0.5 mg as needed roughly 30 tablets every 3 months. Historical: - Allergies: 06:16 Codeine; bm8 06:16 Talwin; bm8 06:16 Toradol; bm8 - Home Meds: 06:16 bupropion HCl 150 mg Oral Tb24 1 tab once daily [Active]; cyclobenzaprine 10 mg Oral bm8 tab 1 tab as needed [Active]; lisinopril 40 mg Oral tab 1 tab once daily [Active]; metoprolol tartrate 50 mg Oral tab 1 tab 2 times per day [Active]; naproxen sodium Oral [Active]; Xanax Oral [Active]; zolpidem 5 mg Oral tab 1 tab once daily [Active]; - PMHx: 06:16 Anxiety; breast cancer; CHRONIC LOW BACK PAIN; depressive disorder; Diabetes - NIDDM; bm8 Hypertension; - PSHx: 06:16 back; masectomy; bm8 - Immunization history:: Adult Immunizations up to date. - Infectious Disease History:: Denies. - Social history:: Smoking status: Patient denies any tobacco usage or history of. ROS: 06:28 Constitutional: Negative for fever, chills, and weight loss, positive for acute sp4 worsening of chronic lower back pain. 06:28 All other systems are negative, Exam: 06:29 Constitutional: This is a well developed, well nourished patient who is awake, alert, sp4 and in no acute distress. Head/Face: Normocephalic, atraumatic. Eyes: Pupils equal round and reactive to light, extra-ocular motions intact. Lids and lashes normal. Conjunctiva and sclera are not injected. Cornea within normal limits. Periorbital areas with no swelling, redness, or edema. ENT: Nares patent. No nasal discharge, no septal abnormalities noted. Tympanic membranes are normal and external auditory canals are clear. Oropharynx with no redness, swelling, or masses, exudates, or evidence of obstruction, uvula midline. Mucous membranes moist. Neck: Trachea midline, no thyromegaly or masses palpated, and no cervical lymphadenopathy. Supple, full range of motion without nuchal rigidity, or vertebral point tenderness. Chest/axilla: Normal chest wall appearance and motion. Nontender with no deformity. No lesions are appreciated. Cardiovascular: Regular rate and rhythm with a normal S1 and S2. No gallops, murmurs, or rubs. Normal PMI, no JVD. No pulse deficits. Respiratory: Lungs have equal breath sounds bilaterally, clear to auscultation and percussion. No rales, rhonchi or wheezes noted. No increased work of breathing, no retractions or nasal flaring. Abdomen/GI: Soft, with normal bowel sounds. No distension or tympany. No guarding or rebound. No evidence of tenderness throughout. Back: No spinal tenderness. No costovertebral tenderness. Scar from the prior spinal surgery to the L-spine . Skin: Warm, dry with normal turgor. Normal color with no rashes, no lesions, and no evidence of cellulitis. MS/ Extremity: Pulses equal, no cyanosis. Neurovascular intact. Full, normal range of motion. Neuro: Awake and alert, GCS 15, oriented to person, place, time, and situation. Cranial nerves II-XII grossly intact. Motor strength 5/5 in all extremities. Sensory grossly intact. Patient is ambulatory with a cane Psych: Awake, alert, with orientation to person, place and time. Behavior, mood, and affect are within normal limits Vital Signs: 06:14 BP 154 / 96; Pulse 99; Resp 20; Temp 99; Pulse Ox 100% ; Weight 64.86 kg; Height 5 ft. bm8 3 in. ; Pain 10/10; 08:11 BP 174 / 86; Pulse 89; Resp 19; Pulse Ox 100% on R/A; iw 06:14 Body Mass Index 25.33 (64.86 kg, 160.02 cm) bm8 06:14 Pain Scale: Adult bm8 Kacy Coma Score: 06:19 Eye Response: spontaneous(4). Motor Response: obeys commands(6). Verbal Response: bm8 oriented(5). Total: 15. 06:29 Eye Response: spontaneous(4). Motor Response: obeys commands(6). Verbal Response: sp4 oriented(5). Total: 15. MDM: 07:02 Medical Screening Exam initiated sp3 07:06 Differential diagnosis: arthritis, strain, fracture, sciatica, contusion, Herniated sp4 disc. Data reviewed: vital signs, nurses notes, radiologic studies, CT scan. ED course: The patient is ambulatory with a cane. On chronic pain regimen hydrocodone 7.5 mg 2-[address] report is pending. Patient signed out to Dr. Rivas. 07:07 Consideration of Admission/Observation Escalation of care including sp4 admission/observation considered. 07:47 ED course: Patient signed out to me by night doctor for acute on chronic low back pain. sp3 Patient has received 8 mg of morphine IM and CT scans of the lumbar spine are pending. Pain is improved and if scans are negative we will safely discharge patient home.. 07:51 ED course: Radiology findings with no significant abnormality. Chronic findings that sp3 she can follow-up with her PCP. We will safely discharge patient home at this time.. 08/22 06:21 Order name: CT Lumbar Spine Wo Con; Complete Time: 07:51 sp4 08/22 06:28 Order name: CT Pelvis wo Cont; Complete Time: 07:51 sp4 Administered Medications: 06:26 Drug: morphine IM 8 mg IM once Route: IM; Site: left ventrogluteal; dd2 06:26 Drug: Methocarbamol PO 750 mg PO once Route: PO; dd2 Disposition Summary: 08/22/24 07:52 Discharge Ordered Notes: Location: Home sp3 Condition: Stable sp3 Diagnosis - Acute on chronic low back pain sp3 Followup: sp3 - With: Private Physician - When: Upon discharge from the Emergency Department - Reason: Continuance of care Discharge Instructions: - Discharge Summary Sheet sp3 - Chronic Pain, Adult sp3 Forms: - Medication Reconciliation Form sp3 - Antibiotic Education sp3 - Prescription Opioid Use sp3 - Patient Portal Instructions sp3 - Leadership Thank You Letter sp3 Signatures: Dispatcher [employer] EDMS Constantino Rivas MD MD sp3 Gregory Anne MD MD sp4 Anthony Bowman RN RN bm8 GIRISH HUA RN RN dd2 Corrections: (The following items were deleted from the chart) 07:06 06:29 Constitutional: This is a well developed, well nourished patient who is awake, sp4 alert, and in no acute distress. Head/Face: Normocephalic, atraumatic. Eyes: Pupils equal round and reactive to light, extra-ocular motions intact. Lids and lashes normal. Conjunctiva and sclera are not injected. Cornea within normal limits. Periorbital areas with no swelling, redness, or edema. ENT: Nares patent. No nasal discharge, no septal abnormalities noted. Tympanic membranes are normal and external auditory canals are clear. Oropharynx with no redness, swelling, or masses, exudates, or evidence of obstruction, uvula midline. Mucous membranes moist. Neck: Trachea midline, no thyromegaly or masses palpated, and no cervical lymphadenopathy. Supple, full range of motion without nuchal rigidity, or vertebral point tenderness. Chest/axilla: Normal chest wall appearance and motion. Nontender with no deformity. No lesions are appreciated. Cardiovascular: Regular rate and rhythm with a normal S1 and S2. No gallops, murmurs, or rubs. Normal PMI, no JVD. No pulse deficits. Respiratory: Lungs have equal breath sounds bilaterally, clear to auscultation and percussion. No rales, rhonchi or wheezes noted. No increased work of breathing, no retractions or nasal flaring. Abdomen/GI: Soft, with normal bowel sounds. No distension or tympany. No guarding or rebound. No evidence of tenderness throughout. Back: No spinal tenderness. No costovertebral tenderness. Scar from the prior spinal surgery to the L-spine . Skin: Warm, dry with normal turgor. Normal color with no rashes, no lesions, and no evidence of cellulitis. MS/ Extremity: Pulses equal, no cyanosis. Neurovascular intact. Full, normal range of motion. Neuro: Awake and alert, GCS 15, oriented to person, place, time, and situation. Cranial nerves II-XII grossly intact. Motor strength 5/5 in all extremities. Sensory grossly intact. Psych: Awake, alert, with orientation to person, place and time. Behavior, mood, and affect are within normal limits sp4
[2024-08-22 08:16] VITALS: TEMP 99; O2SAT 100
[2024-08-22 08:18] VITALS: BP 174/86
== END 2024-08-22 08:12 | disposition home or self-care (01) ==
LOC: ER 05:57
DX: M54.59 Other low back pain (principal)
CPT/HCPCS: 72131; 72192; 96372; 99284